=== PATIENT | male | born 1945 | race Caucasian/White ===

== ENCOUNTER → 2017-07-26 14:53 | Outpatient (POV) | payer MEDICARE, MEDICAID, SELFPAY | PROVIDERS: Family Provider Nurse Practitioner; PCP Nurse Practitioner | DX: Z00.00 Encounter for general adult medical examination without abnormal findings (principal) ==

== ENCOUNTER 2017-08-20 16:50 | Emergency (ER) | payer MEDICARE, MEDICAID, SELFPAY ==
[2017-08-20 17:04] VITALS: BP 162/75; RESP 18; O2SAT 95; BMI 39.7
--- NOTE | 2017-08-20 17:18 | XR_ITS ---
XR chest 2V HISTORY: ITS.REASON: fever and cough ORDERING PHYSICIAN: Michael Martinez MD PATIENT AGE: 72 years COMPARISON: 05/13/2017 FINDINGS: There is mild cardiomegaly without failure. There has been a prior median sternotomy with CABG. No lobar consolidation or collapse. Chronic changes are present in the lungs. IMPRESSION: No change with no acute finding. Mild cardiomegaly
--- NOTE | 2017-08-20 17:18 | HMH.EDGENADL ---
ED Disposition Clinical Impression: Acute bronchitis, Diabetes, Hypertension Disposition: Home, Self-Care Condition on Discharge: Fair Additional Instructions: 1- basic hygiene. 2- star tabx. 3- see pcp in am Prescriptions: Azithromycin [Zithromax 250mg tab] 250 mg PO DIRECTED #6 tab - Critical Care Critical Care Time: No Attestation: On , the high probability of a clinically significant, sudden or life threatening deterioration of the following system(s) required my full and direct attention, intervention and personal management. The time I documented below is in addition to time spent performing reported procedures but includes the following listed in this critical care notation. Medical Decision Making - Medical Records Medical records reviewed: Yes: I reviewed the patient's medical records. - Jeanmarie Inquiry Pt receiving controlled substance: No Jeanmarie was queried for this patient: No Vital Signs: 08/20/17 17:04 Temperature Source Oral Respiratory Rate 18 Blood Pressure [Right Arm] 162/75 Blood Pressure Mean [Right Arm] 104 Blood Pressure Source [Right Arm] Automatic Cuff Blood Pressure Position [Right Arm] Sitting 02 Sat by Pulse Oximetry 95 Oxygen Delivery Method Room Air - Lab Data Lab Results 08/20/17 07:14: Group A Strep Rapid Negative 08/20/17 17:00: Influenza Type A Ag Negative, Influenza Type B Ag Negative Orders (Tests/Meds): ORDERS Category Date Time Status Chest XR 2 view (NOT portable) [XR chest 2V] Stat Exams 08/20/17 17:18 Taken Strep Screen Confirmation Stat Micro 08/20/17 07:14 Received General Adult HPI - General Chief complaint: PAIN Stated complaint: body aches, cough Time Seen by Provider: 08/20/17 17:00 Mode of Arrival: Ambulatory Limitations: No Limitations Description of Symptoms (Recalled from ER Triage Doc. by RN): body aches - History of Present Illness HPI narrative: 72 years old white male with hypertension, penicillin allergy and diabetes. He presents with 2 other family members because of fever productive cough yellow sputum and body aches that started yesterday. Denies having hemoptysis shortness of breath chest pain nausea. Onset (ago): day(s) (Started yesterday.) Radiation: non-radiation Severity: mild Quality: aching, dull Consistency: constant Relieving factors: none Exacerbating factors: none Associated symptoms: cough, fever/chills Treatments prior to arrival: none - Related Data Previous Rx's Medication Instructions Recorded Azithromycin [Zithromax 250mg 250 mg PO DIRECTED #6 tab 08/20/17 tab] Allergies Allergy/AdvReac Type Severity Reaction Status Date / Time Penicillins [PENICILLINS] Allergy Intermediate I-RASH Unverified 05/16/17 14:27 [facility] History I have reviewed the patient's past medical history: Yes - Social History Educational Level: Completed High School Smoking Status: Never smoker Alcohol Intake: never - Psychiatric History Expresses thoughts of harming self/others: None Suicide Plan Description: No Plan ROS Obtained: Yes All systems reviewed & no additional complaints Physical Exam - General General appearance: alert, in no apparent distress - Head Head exam: atraumatic, normocephalic, normal inspection - Eye Eye exam: Present: normal appearance, PERRL, EOMI - ENT ENT exam: Present: normal exam, normal oropharynx, mucous membranes moist, TM's normal bilaterally, normal external ear exam - Neck Neck exam: Present: normal inspection, full ROM, trachea midline. Absent: meningismus, lymphadenopathy - Chest Chest inspection: Present: normal inspection, symmetric chest wall rise. Absent: tenderness - Respiratory Respiratory exam: Present: normal lung sounds bilaterally. Absent: respiratory distress - Cardiovascular Cardiovascular exam: Present: regular rate, normal rhythm. Absent: JVD - Abdominal Exam Abdominal exam: Present: soft, nor
[2017-08-20 17:44] LABS: Strep Scrn Group A (Rapid) Negative (Negative)
[2017-08-20 18:18] VITALS: BP 138/87; PULSE 89; RESP 18; TEMP 36.8; O2SAT 98
== END 2017-08-20 18:19 | disposition home or self-care (01) ==
PROVIDERS: Emergency Provider Emergency Medicine; Family Provider Nurse Practitioner; PCP Nurse Practitioner
DX: J20.9 Acute bronchitis, unspecified (principal); E11.9 Type 2 diabetes mellitus without complications; I10 Essential (primary) hypertension; Z88.0 Allergy status to penicillin
CPT/HCPCS: 71046; 87275; 87276; 87430; 99283

== ENCOUNTER → 2017-10-18 13:44 | Outpatient (POV) | payer MEDICARE, MEDICAID, SELFPAY | PROVIDERS: Family Provider Nurse Practitioner; PCP Nurse Practitioner | DX: Z00.00 Encounter for general adult medical examination without abnormal findings (principal) ==

== ENCOUNTER → 2017-11-06 14:46 | Outpatient (CLI) | payer MEDICARE, MEDICAID, SELFPAY ==
[2017-11-06 18:02] LABS: Alanine Aminotransferase 19 U/L (12-78); Albumin Level 3.5 gm/dL (3.4-5.0); Albumin/Globulin Ratio 1.3 (1.1-1.8); Alkaline Phosphatase 138 U/L (46-116); Anion Gap 15.2 mEq/L (5-15); Aspartate Amino Transferase 15 U/L (15-37); Bilirubin,Total 0.7 mg/dL (0.2-1.0); Blood Urea Nitrogen 20 mg/dL (7-18); Calcium 9.1 mg/dL (8.5-10.1); Carbon Dioxide 29 mmol/L (21.0-32.0); Chloride 105 mmol/L (98-107); Creatinine,Serum 1.16 mg/dL (0.70-1.30); Estimated Glomerular Filt Rate 62 ml/min (>60); GFR (African American) 75 ML/MIN (>60); Globulin 2.8 gm/dl (1.3-3.2); Glucose 89 mg/dL (74-106); Potassium 4.2 mmoL/L (3.5-5.1); Sodium 145 mmol/L (136-145); Total Protein,Serum 6.3 gm/dL (6.4-8.2); Troponin I < 0.02 ng/ml (0.00-0.06)
== END ==
PROVIDERS: Visit Provider Nurse Practitioner
DX: R06.02 Shortness of breath (principal); R60.9 Edema, unspecified
CPT/HCPCS: 36415; 80053; 83880; 84484

== ENCOUNTER → 2017-12-06 14:07 | Outpatient (CLI) | payer MEDICARE, MEDICAID, SELFPAY ==
--- NOTE | 2017-12-06 14:10 | MR_ITS ---
MR cervical spine wo con HISTORY: Neck pain. Right upper extremity numbness ITS.REASON: CERVICAL SPINE PAIN ORDERING PHYSICIAN: Amelia Pelayo PATIENT AGE: 72 years Comparison: 03/03/2017 TECHNIQUE: Standard multiplanar multiecho sequences are performed without contrast. 3-D MIP and myelographic images are also rendered and reviewed FINDINGS: The exam is somewhat limited due to patient motion artifact. The craniocervical junction has an unremarkable appearance. C2-C3: Degenerative disc disease with bulging disc. The disc does abut the bilateral cord with minimal contour deformity anteriorly. There is narrowing of the canal at 10 mm C3-C4: There is fusion of the C3-C4 vertebral bodies there is narrowing of the canal at 10 mm. C4-C5: Degenerative disc disease with bulging disc with narrowing of the canal at 9 mm along with bilateral foraminal narrowing. Extensive motion artifact. C5-C6: Degenerative disc disease with bulging disc with narrowing of the canal at 9 mm with bilateral foraminal narrowing. Extensive motion artifact. C6-C7: Partial fusion. Borderline narrowing of the canal with bilateral foraminal narrowing. C7-T1: Unremarkable. IMPRESSION: 1. Very limited study secondary to motion artifact. Fine detail is obscured. 2. Multilevel degenerative disc disease with bulging disc and narrowing of the canal. This is described in detail above. Please see above for detailed description at each level. 3. Prior fusion of C3-C4 and C6-C7. Better bony detail could be obtained with CT if clinically warranted
== END ==
PROVIDERS: Family Provider Nurse Practitioner; PCP Nurse Practitioner; Visit Provider Nurse Practitioner
DX: M54.2 Cervicalgia (principal)
CPT/HCPCS: 72141; 76376

== ENCOUNTER → 2017-12-08 13:38 | Outpatient (CLI) | payer MEDICARE, MEDICAID, SELFPAY ==
--- NOTE | 2017-12-08 13:41 | MR_ITS ---
MR thoracic spine wo con, Ordering Physician: Amelia Pelayo Patient Age: 72 years: Male HISTORY: ITS.REASON: LUMBAR PAIN, SPINAL STENOSIS Back pain. Spinal stenosis bilateral leg weakness and numbness mid and lower back. Symptoms for many years TECHNIQUE: Sagittal T1 & T2 &, STIR along with axial T1 and T2 imaging T-spine. COMPARISON April 2017 chest film in February 2017 T-spine series . FINDINGS . The vertebral bodies intact with no significant wedge compression fracture or lesion. There are some scattered areas of high signal reflecting small hemangioma formation throughout the spine. But no significant clinically. Very subtle slight slight wedge configuration at T4 is associated with some mildly accentuated kyphosis and may merely be congenital versus reflection of some mild trauma. Is also some early disc space narrowing at C4/5 C5-C6. T5/6 demonstrates a tiny disc protrusion central and distal left of midline. Very very slightly indents thecal sac T6/7 also with a very small focal central disc protrusion which barely indents the thecal sac at midline and may just touch the anterior cord at midline. This seen on sagittal image 7. The disc at the lower T-spine unremarkable. Axial images continued to the teeth apex 9 level. On also again note the incomplete segmentation & partial fusion at C 6/7 which was noted on previous cervical spine studies IMPRESSION: No acute nor prominent findings at the T-spine. . No spinal stenosis... No prominent disc protrusion nor disc herniation. Minor observations.: ... Mild accentuated kyphosis at the upper T-spine T2-T6. This Seems to be associated with some mild disc space narrowing most evident anteriorly at T 4/5; & T5/6. ... Very subtle slight wedging at T4. May merely be congenital. Or could reflect remote minor old compression trauma. ... T5-T6 tiny disc protrusion posteriorly at midline to the left.. Only slightly indents the thecal sac. ... T6/7.. Small unimpressive central disc protrusion, slightly indents thecal sac & may just touch anterior margin thoracic cord at midline. But
--- NOTE | 2017-12-08 13:41 | MR_ITS ---
MR lumbar spine wo con,., MR 3-d myelogram/MRCP Ordering Physician: Amelia Pelayo Patient Age: 72 years: Male HISTORY: ITS.REASON: LUMBAR PAIN, SPINAL STENOSIS . Spinal stenosis bilateral leg weakness and numbness. Mid and low back pain symptoms for years, worse recently. TECHNIQUE: Sagittal STIR, T1, T2, axial T1 and T2. On 1.5T Siemens wide bore MRI. 3-D MR myelogram image set obtained & performed on MRI workstation. Additional sagittal thin section T2 weighted dataset obtained from this latter acquisition as well (---76 CPT) COMPARISON :MRI lumbar 08/19/2013. CTA abdomen from March 2017 also utilized. Also plain films lumbar FINDINGS L5. Bilateral pars defect with nearly 7 mm grade 1 anterior spondylolisthesis of L5 on S1 . This is been seen on multiple previous studies including CT exam CTA from 2017.. Exuberant posterior element hypertrophy, related to the both the facet arthropathy and pars defect evident.. Irregular appearance of the facets and posterior elements bilaterally at this level as well as L4/5 L5/S1 disc intact. Exuberant Facet and posterior element hypertrophy. Along with decreased height of the foramen to the listhesis yields mild to moderate narrowing of the foramen L4/5 disc intact only scant central bulge. Exuberant facet hypertrophy is most evident at this level with prominent bony proliferation posterior to the facets. Possibly from old fusion procedure?. The prominent facets and posterior elements to indents the posterior thecal sac and yield borderline to mild spinal stenosis at this level. No significant change since 2013. L3/4. Disc intact. Moderate facet hypertrophy and arthropathy. The right greater than left. Fluid at facet joints. Narrowing of the neural foramen bilaterally mainly due to these features. L2/3 disc intact mild facet arthropathy hypertrophy L1/2. Disc intact facet hypertrophy. T12/L1 disc intact. T11/12 disc intact. Conus ends appropriately at L1 3-D MR myelogram image set shows no significant new findings. There is slight posterior indentation the thecal sac at L4/5 related to the posterior element hypertrophy, and to lesser L3/4. Surprisingly there is a generous caliber of the spinal canal L5/S1 despite the listhesis patchy marrow pattern at sacrum and posterior iliac bones noted. Most likely reflects, yellow-tored marrow changes reflecting is history of smoking or possibly anemia. Correlation required . IMPRESSION: ...... No prominent change since 2014 MRI.. Only Slight progressive facet arthropathy and hypertrophy throughout. Bilateral spondylolysis at L5, generous grade 1 spondylolisthesis of L5 on S1. L5/S1. Exuberant posterior element hypertrophy. Related to both large defect and the facet hypertrophy. Bilateral Foraminal narrowing due combination of these features L4/5: exuberant posterior element & facet hypertrophy. Minor central disc bulge. Features mainly Indents posterior thecal sac with slightly narrows the spinal canal most evident posteriorly. Borderline to perhaps mild central canal stenosis. No significant progression or change 2014 L3/4. Moderate facet hypertrophy and arthropathy. Right greater than left. L2/3. Mild facet hypertrophy, arthropathy..
== END ==
PROVIDERS: Family Provider Nurse Practitioner; PCP Nurse Practitioner; Visit Provider Nurse Practitioner
DX: M54.5 Low back pain (principal); M48.07 Spinal stenosis, lumbosacral region
CPT/HCPCS: 72146; 72148; 76376

== ENCOUNTER → 2018-02-20 09:08 | Outpatient (POV) | payer MEDICARE, MEDICAID, SELFPAY | PROVIDERS: Family Provider Nurse Practitioner; PCP Nurse Practitioner; Visit Provider Internal Medicine | DX: Z00.00 Encounter for general adult medical examination without abnormal findings (principal) ==

== ENCOUNTER → 2018-10-17 09:32 | Outpatient (CLI) | payer MEDICARE, MEDICAID, SELFPAY ==
--- NOTE | 2018-10-17 09:43 | XR_ITS ---
XR foot LT min 3V HISTORY: ITS.REASON: BILAT HEEL PAIN ORDERING PHYSICIAN: Mary Ann Chavez APRN PATIENT AGE: 73 years COMPARISON: None FINDINGS: There are mild osteoarthritic changes at the first metatarsophalangeal joint. There is mild diffuse osteopenia. No fracture or dislocation. No lytic or blastic change. There is a small calcaneal spur and there is generalized vascular calcification. 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
--- NOTE | 2018-10-17 09:43 | XR_ITS ---
XR foot RT min 3V HISTORY: ITS.REASON: BILAT HEEL PAIN ORDERING PHYSICIAN: Mary Ann Chavez APRN PATIENT AGE: 73 years COMPARISON: None FINDINGS: No fracture or dislocation. No lytic or blastic change. There is normal mineralization.. The joint spaces are well-preserved. No significant degenerative/arthritic changes. No erosive changes evident. There is mild generalized vascular calcification. Minimal bony hypertrophic changes present in the anterior distal tibia. There are surgical clips at the medial aspect of the ankle. IMPRESSION: No acute finding
== END ==
PROVIDERS: PCP Family Medicine; Visit Provider Nurse Practitioner Family
DX: M79.672 Pain in left foot (principal); M79.671 Pain in right foot
CPT/HCPCS: 73630

== ENCOUNTER → 2018-11-09 10:03 | Outpatient (CLI) | payer MEDICARE, MEDICAID, SELFPAY ==
--- NOTE | 2018-11-09 10:15 | XR_ITS ---
XR DEXA axial skeleton HISTORY: ITS.REASON: OSTEOPENIA ORDERING PHYSICIAN: Amelia Pelayo APRN PATIENT AGE: 73 years COMPARISON: None FINDINGS: The BMD measured at the Right femoral neck is 0.625 g/cm squared with a T score of -3.4. This is considered Markedly Low according to the World Health Organization criteria. Fracture risk is High. Treatment is advised. The L1 L4 density has a T score of -2.3 IMPRESSION: Osteoporosis. High fracture risk. Treatment is advised. Suggest follow-up exam October 2019
== END ==
PROVIDERS: PCP Family Medicine; Visit Provider Nurse Practitioner
DX: M85.89 Other specified disorders of bone density and structure, multiple sites (principal)
CPT/HCPCS: 77080

== ENCOUNTER 2019-03-14 10:57 | Outpatient (RCR) | payer MEDICARE, SELFPAY ==
--- NOTE | 2019-03-14 11:32 | HMH.PTOPEV ---
PT Outpatient Evaluation Rehab PT Outpatient Evaluation Start: 03/14/19 11:23 Freq: Status: Active Protocol: Document 03/14/19 11:24 ZENON (Rec: 03/14/19 11:32 ZENON [id number]) Electronically Signed By Ted Martinez, PT 03/14/19 11:24 Outpatient Therapy Subjective History Subjective History Pt reports h/o chronic neck pain for ~30 yrs, however, reports exacerbation over the last ~3 months. Pt reports mostly midline neck and CT junction area pain, with intermittent referred pain into B UT mm. PMH: CERVICAL FUSION C3-4, C6-7 Chief Complaint Pain,Stiff,Clicks Symptom Type Ache,Throb,Sharp,Dull Symptoms Relieved By Rest/Positioning Symptoms Aggravated By Physical Activity,Lifting Prior Functional Limitations Housework Current Functional Limitations Reaching,Lifting,Housework, Driving Symptom Description Constant but Variable Level of pain today (0-10) 8 Pain scale - at its best (0-10) 8 Pain scale - at its worst (0-10) 8 Cervical Eval Palpation Cervical Muscles R Cervical Paraspinal,L Cervical Paraspinal,R CT Junction,L CT Junction,R Upper Trapezius,L Upper Trapezius Cervical/Thoracic Palpation Findings Tenderness,Muscle Guarding Posture Head/C-Spine Posture Sitting Position Flexed Head/C-Spine Posture Standing Position Flexed Flexibility Deficits Upper Trapezius Muscle Length (R) Moderate Tightness,(L) Moderate Tightness Scalene Group Muscle Length (R) Moderate Tightness,(L) Moderate Tightness Pectoralis Major Muscle Length (R) Severe Tightness,(L) Severe Tightness Pectoralis Minor Muscle Length (R) Severe Tightness,(L) Severe Tightness Passive Joint Mobility Cervical PIVM Dec: R OA L OA R AA L AA R C2/3 L C2/3 R C3/4 L C3/4 R C4/5 L C4/5 R C5/6 L C5/6 R C6/7 L C6/7 R C7/T1
== END 2019-03-14 10:59 | disposition home or self-care (01) ==
LOC: PT 10:57
PROVIDERS: PCP Family Medicine; Visit Provider Family Medicine
DX: M54.2 Cervicalgia (principal)
CPT/HCPCS: 97163

== ENCOUNTER → 2020-11-12 09:18 | Outpatient (POV) | payer MEDICARE, MEDICAID, SELFPAY ==
[2020-11-12 09:38] VITALS: BP 126/55; PULSE 76; RESP 20; O2SAT 96; BMI 32.1
--- NOTE | 2020-11-12 12:45 | HMH.PMCON ---
Assessment and Plan (1) Neck pain Status: Chronic Category: Medical Code(s): M54.2 - Cervicalgia (2) Peripheral neuropathy Status: Chronic Category: Medical Code(s): G62.9 - Polyneuropathy, unspecified (3) Low back pain Status: Chronic Category: Medical Code(s): M54.5 - Low back pain - Assessment and plan all Dx Assessment and Plan for all problems:: Patient is not interested in injections at this time. He has tried and failed injective therapy in the past. He is also tried anti-inflammatories in the past and home stretching. He has undergone physical therapy for greater than 6 weeks in the past with no significant relief. We discussed possible intrathecal therapy as an option, however, he is unsure he wants to proceed with this. For now he would like to try Lyrica 75 mg 1 tablet p.o. twice daily. His pain is worse to his bilateral feet. He has tried gabapentin and says the medication made him too sleepy. We will give him Lyrica 75 mg 1 tablet p.o. twice daily and see if this is effective for his pain. We will follow-up with him in 2 weeks for reevaluation of his symptoms. Patient has been instructed to contact the clinic with any concerns before the next appointment. Dr. Srinivasan has reviewed this note and agrees with this plan of care. This note was dictated using voice recognition software and make contain errors or omissions. HPI - Data of Consult Patient: new to practice Consult date: 11/12/20 Requesting Physician: Tomasa Gomez APRN Primary Care Provider: Clayton Kaur MD - Consult Narrative Reason for consult: Low back pain, neck pain, bilateral lower extremity pain, foot pain History of present illness: Mr. Alvarado is a 75 year old male referred to our clinic today for consultation for chronic low back and foot pain. Patient has been seen by Dr. Hill and [facility] for chronic bilateral lower extremity pain due to atherosclerosis of both lower extremities with intermittent claudication. Dr. Hill did attempt place iliac stents, however, was unsuccessful. As result the patient is continuing to have significant pain. Patient is diabetic and there was concern for some neuropathic pain as well. Patient does have low back pain as well as neck pain. He has had cervical fusion in 2001. He also reports to have had a left hip replacement in early 1999's as well. He says his worst pain today is in his bilateral feet. He says that he has had injective therapy in the lumbar spine which did not give him any relief. Last injective therapy was approximately 3 years ago in [facility]. The pain in his low back is going across his back and radiating into the lower extremities. He says his feet feel as though he has knives sticking in them. He is having numbness and tingling into his fourth and fifth fingers bilaterally. He says that his neck pain is consistent with weakness and heaviness as well as weakness and also into his bilateral hands. Has tried gabapentin with no significant relief. He said the medication made him too drowsy. Patient is not interested in injective therapy. He is not interested in interventional therapies. We discussed trying Lyrica at this time to see if it helps with his symptoms that he is having in his bilateral feet. He would like to try this. CC: Tomasa Gomez APRN [facility] History Medical History: Reports:: Atherosclerotic Heart Disease, Coronary Artery Disease, Diabetes Mellitus Type 2, Hyperlipidemia, Hypertension, Peripheral Artery Disease Denies:: Cancer, Diabetes Mellitus Type 1, Internal Pacemaker, Lung Disease, MRSA, Seizures *Have you ever received a pneumonia vaccine?: Yes *Have you received a flu vaccine this season?: Yes Other Medical History: Reports: Anemia, Arthritis, Other Other Surgeries: Yes: Cardiac Catheterization, Coronary Stent (x12). No: Pacemaker Amputation: No Fractures: Yes (right ankle fx with surgical repair) - *Social His
== END ==
PROVIDERS: PCP Family Medicine; Visit Provider Clinical Nurse Specialist Family Health
DX: M54.2 Cervicalgia (principal); G62.9 Polyneuropathy, unspecified; M54.5 Low back pain
CPT/HCPCS: 99202; G0463

== ENCOUNTER → 2020-11-26 10:33 | Outpatient (POV) | payer MEDICARE, MEDICAID, SELFPAY ==
[2020-11-26 10:44] VITALS: BP 141/59; PULSE 78; RESP 18; O2SAT 94; BMI 32.6
--- NOTE | 2020-11-26 12:47 | HMH.PAINSOAP ---
[facility] [place] Pain Management SOAP Note Subjective:: Patient is a 75-year-old white male who presents today for follow-up. The patient is being seen in our clinic for degenerative disc disease cervical spine with cervical radiculopathy symptoms and degenerative disc disease lumbar spine with lumbar radiculopathy symptoms. Patient does also have peripheral neuropathy. At the patient's last visit, he was started on Lyrica 75 mg 1 tablet p.o. twice daily. He is here today for follow-up after the medication initiation. Patient says that he is getting some relief of his burning sensation to his bilateral feet, however, the medication is making him very drowsy. He says that it is tolerable through the night, however, in the daytime he finds himself falling asleep often. We discussed changing this dosing to 50 mg 1 tablet p.o. twice daily, however, the patient would like to continue at 75 mg 1 tablet p.o. daily rather than in the morning time as well. Patient says, however, it has not helped with his pain. He continues to have significant pain in his neck, bilateral shoulders, and bilateral lower extremities. He does rate his pain an 8 out of 10 today. Patient has tried and failed conservative therapies of physical therapy for greater than 6 weeks along with continued home stretching. He is also tried injective therapy on multiple occasions with multiple different clinics. He has never gotten any significant relief. He uses ice and heat therapies with no relief along with anti-inflammatories with no significant relief. Patient would like to discuss possible long-term options for pain relief. He has taken Percocet in the past which is giving him some relief but has not relieved his pain entirely. Patient I did discuss realistic expectations, and the likelihood that he would not experience 0 out of 10 pain. We did discuss possible intrathecal therapy which he would like to pursue possible trial. I did discuss with the patient he would need to undergo psychological evaluation prior to undergoing a trial. He is in agreement. He is not considered a neurosurgical candidate. Review of Systems General: No recent weight changes, no fever, no sleep disturbances Respiratory: No cough, no shortness of air, no recurring pulmonary infections Cardiovascular/peripheral vascular: No chest pain, no palpitations, no edema, no shortness of breath Gastrointestinal: No new onset incontinence, normal bowel movements reported Genitourinary: No new onset incontinence Musculoskeletal: Neck pain with radiation into bilateral shoulders, low back or with radiation into bilateral lower extremities, bilateral foot pain with numbness and tingling and burning sensation Psychiatric: Normal mood/affect Neurological: Burning sensation bilateral feet, weakness bilateral feet, balance issues due to foot pain and bilateral leg pain Objective:: Physical exam General: Alert and oriented x3, no acute distress, pleasant and cooperative, [on room air] Lungs: Respirations even and unlabored, symmetrical chest expansion Eyes: PERRL Musculoskeletal: Flexion and extension of cervical and lumbar spine somewhat guarded secondary to pain, deep tendon reflexes normal, strength in upper and lower extremities [5/5], [abnormal gait noted] Neurological: Speech clear, 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 He does have pain in his neck, shoulders, low back and bilateral legs. I have explained to the patient and his that the intrathecal therapy will typically only relieve pain radicular from the spine. They do understand this. I have also discussed realistic expectatio
--- NOTE | 2020-12-28 11:20 | PC.NURSE ---
attempt to call patient to schedule for follow up appointment to talk about psych eval, no answer and no voicemail and no other contact number.
--- NOTE | 2020-12-30 13:22 | PC.NURSE ---
Tried calling patient again to set up follow up psych eval appointment with no answer and no voicemail.
== END ==
PROVIDERS: PCP Family Medicine; Visit Provider Clinical Nurse Specialist Family Health
DX: M51.16 Intervertebral disc disorders with radiculopathy, lumbar region (principal); M50.10 Cervical disc disorder with radiculopathy, unspecified cervical region; G62.9 Polyneuropathy, unspecified
CPT/HCPCS: 99212; G0463

== ENCOUNTER → 2021-01-04 10:54 | Outpatient (POV) | payer MEDICARE, MEDICAID, SELFPAY ==
--- NOTE | 2021-01-04 11:20 | HMH.PAINSOAP ---
[facility] Pain Management SOAP Note Subjective:: Patient is a 75-year-old white male who presents today for follow-up after her psychological evaluation. 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 Patient does also have a history of peripheral neuropathy. Patient was started on Lyrica at one of his previous visits, however, has not gotten any significant relief with the medication. He rates his pain a 9 out of 10 today. Patient's pain is primarily in his neck, palpable lateral shoulders, and bilateral lower extremities. He also has significant pain in his low back. He says he is unable to stand, walk, or sit for prolonged periods due to significant pain. He has had injections in the past with no significant relief. He is also tried physical therapy for greater than 6 weeks and continues with home stretching. Patient is on Eliquis and is unable to take anti-inflammatories. His Eliquis is prescribed by Dr. Henry in [facility] with [facility]. He has taken Percocet in the past which is giving him some relief but has not relieved his pain entirely. Patient I had a long conversation at his last visit with realistic expectations of the pump. I have explained to the patient that the intrathecal therapy will not likely give him relief of his upper and lower extremity pain if the pain is not stemming from his spine. Patient and I also discussed that he will not likely get 100% pain relief. He does understand this and does wish to continue with the trial. Per the psychological evaluation he is an appropriate candidate pending the patient discontinue his diazepam 10 mg 1 tablet p.o. 4 times daily. It was also advised that the patient start an antidepressant per his primary care provider. Patient does have an appointment upcoming with his primary care provider. He also takes temazepam 30 mg 1 tablet p.o. at bedtime as needed insomnia. We did discuss he will likely need to wean on this medication as well due to risk of oversedation with intrathecal therapy. Patient is in agreement to stop these medications and start antidepressant in the event that the intrathecal pump trial does give him relief. He understands he will need to have weaned on these medications prior to the trial. Review of Systems General: No recent weight changes, no fever, no sleep disturbances Respiratory: No cough, no shortness of air, no recurring pulmonary infections Cardiovascular/peripheral vascular: No chest pain, no palpitations, no edema, no shortness of breath Gastrointestinal: No new onset incontinence, normal bowel movements reported Genitourinary: No new onset incontinence Musculoskeletal: Neck pain, shoulder pain, bilateral upper and lower extremity pain, low back pain Psychiatric: [Normal mood/affect] Neurological: [Denies weakness in extremities], [denies balance issues] Objective:: Physical exam General: Alert and oriented x3, no acute distress, pleasant and cooperative, [on room air] Lungs: Respirations even and unlabored, symmetrical chest expansion Eyes: PERRL Musculoskeletal: Flexion and extension of cervical and lumbar [spine] somewhat guarded secondary to pain, strength in upper and lower extremities [5/5], [antalgic gait noted] Neurological: Speech clear, [capacity planning manager equal], no gross sensory deficit Assessment:: Degenerative disc disease cervical and lumbar spine with cervical and lumbar radiculopathy symptoms Plan:: The patient has tried and failed conservative therapies with no significant relief. He is unable to take anti-inflammatories due to anticoagulation therapy?Eliquis. His Eliquis is prescribed by Dr. Henry at [facility] in [facility]. We will schedule the patient for an intrathecal pain pump trial. Per the patient psychological evaluation, he will need to have stopped his diazepam. I have recommended to the selena
== END ==
PROVIDERS: Visit Provider Clinical Nurse Specialist Family Health
DX: M50.10 Cervical disc disorder with radiculopathy, unspecified cervical region (principal)
CPT/HCPCS: 99212; G0463

== ENCOUNTER 2021-02-25 07:43 | Outpatient (RCR) | payer MEDICARE, MEDICAID, SELFPAY | END 2021-02-25 08:47 | disposition home or self-care (01) | LOC: PT 07:43 | PROVIDERS: Visit Provider Family Medicine | DX: Z76.89 Persons encountering health services in other specified circumstances (principal); R26.89 Other abnormalities of gait and mobility | CPT/HCPCS: 97542 ==

== ENCOUNTER 2021-03-13 14:47 | Inpatient (IN) | payer MEDICARE, MEDICAID, SELFPAY ==
[2021-03-13] VITALS (7 sets, daily range): BP systolic 112–138; BP diastolic 55–92; PULSE 73–108; RESP 16–26; TEMP 36.7–36.8; O2SAT 88–100; BMI 33.7; BMI 34.2
--- NOTE | 2021-03-13 14:54 | HMH.EDGENADL ---
ED Disposition Clinical Impression: Gangrene of right foot Disposition: Admitted As Inpatient Condition on Discharge: Serious - Critical Care Critical Care Time: No Attestation: On , the high probability of a clinically significant, sudden or life threatening deterioration of the following system(s) required my full and direct attention, intervention and personal management. The time I documented below is in addition to time spent performing reported procedures but includes the following listed in this critical care notation. Medical Decision Making - Jeanmarie Inquiry Pt receiving controlled substance: Yes Jeanmarie was queried for this patient: Yes Risks and benefits of using a controlled substance: were not discussed with pt by me Vital Signs: 03/13/21 14:49 03/13/21 15:31 03/13/21 16:00 Temperature 98.1 F Temperature Source Oral Pulse Rate 100 H 73 Pulse Rate [Left Radial] 108 H Respiratory Rate 20 16 Blood Pressure 112/92 H 124/55 L Blood Pressure [Right Arm] 138/89 Blood Pressure Mean 95 78 Blood Pressure Mean [Right Arm] 105 Blood Pressure Source [Right Arm] Automatic Cuff Blood Pressure Position [Right Arm] Sitting 02 Sat by Pulse Oximetry 100 94 L 88 L Oxygen Delivery Method Oxygen Flow Rate (LPM) 03/13/21 16:31 03/13/21 16:59 Temperature 98.1 F Temperature Source Pulse Rate 97 H 97 H Pulse Rate [Left Radial] Respiratory Rate 20 20 Blood Pressure 133/60 133/60 Blood Pressure [Right Arm] Blood Pressure Mean 87 Blood Pressure Mean [Right Arm] Blood Pressure Source [Right Arm] Blood Pressure Position [Right Arm] 02 Sat by Pulse Oximetry 96 Oxygen Delivery Method Nasal Cannula Oxygen Flow Rate (LPM) 2 - Lab Data Lab Results 03/13/21 14:45: WBC 8.1, RBC 3.09 L, Hgb 10.4 L, Hct 30.9 L, MCV 100.0 H, MCH 33.6 H, MCHC 33.6, RDW 17.7 H, Plt Count 71 L, MPV 11.1 H, Neut % (Auto) 84.4 H, Lymph % (Auto) 6.7 L, [place] % (Auto) 3.7, Eos % (Auto) 4.9, Baso % (Auto) 0.3, Neut # (Auto) 6.8, Lymph # (Auto) 0.5 L, [place] # (Auto) 0.3, Eos # (Auto) 0.4, Baso # (Auto) 0.0 03/13/21 14:45: Sodium 137, Potassium 5.3 H, Chloride 101, Carbon Dioxide 30, Anion Gap 11.3, BUN 36 H, Creatinine 1.30 H, Estimated Creat Clear 76, Estimated GFR 54 L, Est GFR ( Amer) 65, Glucose 153 H, Calcium 9.0, Total Bilirubin 1.0, AST 46, ALT 20, Alkaline Phosphatase 85, Total Protein 7.5, Albumin 4.3, Globulin 3.2, Albumin/Globulin Ratio 1.3 03/13/21 14:45: PT 11.8, INR 1.05 03/13/21 14:45: ESR 29 H 03/13/21 14:45: C-Reactive Protein 12.3 H, Procalcitonin 0.137 03/13/21 15:15: Lactate 2.9 H 03/13/21 15:15: Urine Color Straw, Urine Appearance Clear, Urine pH 5.5, Ur Specific [place] 1.010, Urine Protein Negative, Urine Glucose (UA) Negative, Urine Ketones Negative, Urine Blood Negative, Urine Nitrate Negative, Urine Bilirubin Negative, Urine Urobilinogen 0.2, Ur Leukocyte Esterase Negative, Ur Squamous Epith Cells Occasional, Urine Bacteria Trace 03/13/21 15:19: SARS-CoV-2 (PCR) Not detected, Influenza A Untype (PCR) Not detected, Influenza Type B (PCR) Not detected Result diagrams: 03/13/21 14:45 03/13/21 14:45 Orders (Tests/Meds): ED MEDICATIONS Generic Name Dose Route Start Last Admin Trade Name Martinez PRN Reason Stop Dose Admin Acetaminophen 650 mg 03/13/21 17:30 Acetaminophen 325mg Tab PO 04/12/21 17:29 Q4HP PRN Fever or Mild Pain Amlodipine Besylate 5 mg 03/14/21 09:00 Amlodipine 5mg Tablet PO 04/13/21 08:59 DAILY [facility] Atorvastatin Calcium 40 mg 03/14/21 09:00 Atorvastatin 40mg Tablet PO 04/13/21 08:59 DAILY [facility] Carvedilol 12.5 mg 03/13/21 21:00 Carvedilol 25mg Tablet PO 04/12/21 20:59 BID [facility] Furosemide 80 mg 03/13/21 21:00 Furosemide 40 Mg Tablet PO 04/12/21 20:59 BID [facility] Cefepime HCl 2 gm/ Sodium 100 mls @ 200 mls/hr 03/14/21 04:00 Chloride IV 03/27/21 15:59 Q12H [facility] Metronidazole 500 mg in 100 mls @ 10
[2021-03-13 15:03] LABS: Basophils % 0.3 % (0.1-2.0); Eosinophils # 0.4 K/mm3 (0.0-0.4); Eosinophils % 4.9 % (0.1-12.0); Hematocrit 30.9 % (42.0-52.0); Hemoglobin 10.4 g/dL (14.1-18.0); Lymphocytes # 0.5 K/mm3 (0.7-4.5); Lymphocytes % 6.7 % (10-50); Mean Corpuscular HGB Conc 33.6 g/dL (31.8-35.4); Mean Corpuscular Hemoglobin 33.6 pg (27.0-31.2); Mean Platelet Volume 11.1 fl (7.4-10.4); Monocytes # 0.3 K/mm3 (0.1-1.0); Monocytes % 3.7 % (1.7-9.3); Neutrophils # 6.8 K/mm3 (1.8-7.8); Neutrophils % 84.4 % (37.0-80.0); Platelet Count 71 K/mm3 (142-424); Red Blood Count 3.09 M/mm3 (4.60-6.20); Red Cell Distribution Width 17.7 % (11.5-17.5); White Blood Count 8.1 K/mm3 (4.8-10.8)
--- NOTE | 2021-03-13 15:09 | XR_ITS ---
PROCEDURE INFORMATION: Exam: XR Right Foot Exam date and time: 03/13/2021 3:09 PM Age: 76 years old Clinical indication: Swelling, leg or foot; Patient HX: Pain and discoloration of right foot TECHNIQUE: Imaging protocol: XR Right foot. Views: 3 or more views. COMPARISON: No relevant prior studies available. FINDINGS: Bones/joints: There is no evidence of acute fracture. There is no evidence of joint malalignment or dislocation. Soft tissues: No focal soft tissue swelling. IMPRESSION: 1. No evidence of acute fracture. 2. No evidence of acute dislocation.
[2021-03-13 15:10] LABS: Alanine Aminotransferase 20 U/L (12-78); Albumin Level 4.3 g/dl (3.5-5.0); Albumin/Globulin Ratio 1.3 (1.1-1.8); Alkaline Phosphatase 85 U/L (38-126); Anion Gap 11.3 mEq/L (5-15); Aspartate Amino Transferase 46 U/L (17-59); Blood Urea Nitrogen 36 mg/dl (9-20); Carbon Dioxide 30 mmol/L (22.0-30.0); Chloride 101 mmol/L (98-107); Creatinine Clearance Estimated 76 mL/min (50-200); Estimated Glomerular Filt Rate 54 ml/min (>60); GFR (African American) 65 ML/MIN (>60); Globulin 3.2 g/dL (1.3-3.2); Glucose 153 mg/dl (74-100); INR 1.05 (0.9-1.1); Potassium 5.3 mmoL/L (3.5-5.1); Prothrombin Time 11.8 seconds (10.1-12.5); Sodium 137 mmol/L (136-145); Total Protein,Serum 7.5 g/dl (6.3-8.2)
--- NOTE | 2021-03-13 15:10 | XR_ITS ---
PROCEDURE INFORMATION: Exam: XR Chest Exam date and time: 03/13/2021 3:10 PM Age: 76 years old Clinical indication: Other: Chills TECHNIQUE: Imaging protocol: XR of the chest. Views: 1 view. COMPARISON: CR CXR2V XR chest 2V 08/20/2017 5:21 PM FINDINGS: Tubes, catheters and devices: There are sternal wires consistent with previous sternotomy incision. Lungs: Atelectatic changes noted within both lung bases. Pleural spaces: There is no evidence of pneumothorax. There are no pleural effusions present. Heart/Mediastinum: The heart demonstrates mild diffuse enlargement. Vasculature: The vasculature demonstrates diffuse mild atherosclerotic calcification. Bones/joints: Unremarkable. IMPRESSION: 1. The heart demonstrates mild diffuse enlargement. 2. Atelectatic changes noted within both lung bases.
[2021-03-13 15:26] LABS: Microscopic, Urine URINE MICROSCOPIC (MICROSCOPIC)
[2021-03-13 15:26] LABS: Coronavirus 19, PCR Not Detected (NotDetected); Influenza A, PCR Not Detected (NotDetected); Influenza B, PCR Not Detected (NotDetected)
[2021-03-13 15:29] LABS: C-Reactive Protein 12.3 mg/L (0-4)
[2021-03-13 15:37] LABS: Lactic Acid 2.9 mmol/L (0.7-2.1)
[2021-03-13 15:38] LABS: Erythrocyte Sedimentation Rate 29 mm/hr (0-20)
[2021-03-13 15:40] LABS: Appearance,Urine CLEAR (Clear); Bilirubin,Urine Negative (Negative); Blood, Urine Negative (Negative); Color,Urine STRAW (Yellow); Glucose,Urine (UA) Negative (Negative); Ketones,Urine Negative (Negative); Leukocyte Esterase,Urine Negative (Negative); Nitrate,Urine Negative (Negative); PH,Urine 5.5 (5.0-8.5); Protein,Urine Negative (Negative); Urobilinogen,Urine 0.2 EU/dl (0.2)
--- NOTE | 2021-03-13 15:41 | ECG_ITS ---
APPROVED REPORT Exam: Resting ECG HR:96 bpm ECG Measurements Heart Rate 96 AXES SC 164 P 52 QRSd 92 QRS 32 QT 382 T 127 QTc 482 Conclusion Normal sinus rhythm Nonspecific ST and T wave abnormality Prolonged QT Abnormal ECG Electronically signed by : Lance Alex MD 03/15/2021 18:00:04
[2021-03-13 15:42] LABS: Procalcitonin 0.137 ng/mL (0.0-2.0)
[2021-03-13 15:47] LABS: Bacteria,Urine Trace /lpf; Squamous Epithelial Cell,Urine Occasional #/hpf (0-5)
--- NOTE | 2021-03-13 15:50 | PC.NURSE ---
Dr Tariq spoke with Dr Hoffman
--- NOTE | 2021-03-13 16:49 | PC.NURSE ---
report given to Sabra NOVAK
--- NOTE | 2021-03-13 16:59 | PC.NURSE ---
pt arrived to the floor at this time
[2021-03-13 18:20] LABS: POC Glucose,Bedside 203 (70-110)
[2021-03-13 19:03] LABS: Reflex Lactic Add Lactic Reflex
[2021-03-13 19:43] LABS: Lactic Acid Follow Up (RFLX 1) 3.4 mmol/L (0.7-2.1)
[2021-03-13 20:12] LABS: POC Glucose,Bedside 147 (70-110)
[2021-03-13 21:31] LABS: Reflex Lactic (2 hrs) Add Lactic Reflex
[2021-03-13 22:02] LABS: Lactic Acid Follow up (RFLX 2) 2.3 mmol/L (0.7-2.1)
[2021-03-14] VITALS (29 sets, daily range): BP systolic 89–113; BP diastolic 44–61; PULSE 82–97; RESP 15–22; TEMP 36.3–37.4; O2SAT 90–95; BMI 34.5
--- NOTE | 2021-03-14 05:07 | PC.NURSE ---
pt's VSS, A&Ox4, c/o pain once this shift controlled with medication per jul, right foot open to air slight serosanguineous drainage, pt resting comfortably in bed, will continue to monitor
[2021-03-14 06:03] LABS: POC Glucose,Bedside 195 (70-110)
--- NOTE | 2021-03-14 08:55 | HMH.HP ---
*Admission Date: 03/13/21 *Chief complaint: Right foot pain *History of present illness: 76-year-old male presented to the emergency department with 2 to 3 days of right foot pain with discoloration in the right foot. Patient had injured his second right toe while trying to trim his toenail. He believes he cut the nail too short and ended up causing a small cut on the tip of the toe. Over the following 48 to 72 hours discoloration had developed in the second toe. Discoloration was purple and was beginning to spread to the distal foot. He had increasing pain in the foot along with inability to ambulate. Patient has a history of peripheral arterial disease and tells me he was actually scheduled for vascular surgery consultation this coming Monday to look at potential bypass surgery in the lower extremity. In addition to his peripheral arterial disease patient has diabetic peripheral neuropathy. He admits to having chills but no documented fevers as of yet. Patient endorses general malaise as well [facility] History I have reviewed the patient's past medical history: Yes Medical History: Reports:: Atherosclerotic Heart Disease, Atrial Fibrillation, Congestive Heart Failure, Coronary Artery Disease, Diabetes Mellitus Type 2, Hyperlipidemia, Hypertension, MRSA, Myocardial Infarction, Peripheral Artery Disease Denies:: Cancer, Diabetes Mellitus Type 1, Internal Pacemaker, Lung Disease, Seizures *Have you ever received a pneumonia vaccine?: Yes *Have you received a flu vaccine this season?: Yes Other Medical History: Reports: Anemia, Arthritis, Cataracts, Other Other Surgeries: Yes: Cardiac Catheterization, Coronary Stent (x12). No: Pacemaker Amputation: No Fractures: Yes (right ankle fx with surgical repair) - *Social History Last grade of school completed: 7th or 8th Smoking Status: Never smoker Alcohol Intake: never *Occupational Status:: retired Housing: house Household Members: spouse *Travel in the last 8 weeks: None Family Hx:: Other Review of Systems - Review of Systems Review of systems:: pertinent systems reviewed and negative unless documented below Meds Home Medications Medication Instructions Recorded Confirmed Type Amlodipine Besylate [Norvasc 5mg 5 mg PO DAILY 09/29/17 03/13/21 History tablet] Atorvastatin Calcium [Lipitor 40mg 40 mg PO DAILY 09/29/17 03/13/21 History Tablet] Furosemide [Lasix 40mg tab] 80 mg PO BID 09/29/17 03/13/21 History Potassium Chloride [Klor-Con 20 20 meq PO TID 09/29/17 03/13/21 History mEq Packet] carvediloL [Coreg 25mg Tablet] 12.5 mg PO BID 09/29/17 03/13/21 History Ferrous Gluconate [Ferrous 324 mg PO DAILY 10/13/17 03/13/21 History Gluconate 324mg Tab] Alendronate Sodium [Alendronate 35 mg PO WEEKLY 11/12/20 03/13/21 History 35mg Tablet] Apixaban [Eliquis 5mg tab] 5 mg PO BID 11/12/20 03/13/21 History Cholecalciferol (Vitamin D3) 50,000 unit PO WEEKLY 11/12/20 03/13/21 History [Vitamin D3 50,000 unit Cap] Insulin Glargine,Hum.rec.anlog 20 units SQ DAILY 11/12/20 03/13/21 History [Lantus Solostar 100 Units/mL 3mL flexpen] Losartan Potassium 100 mg PO DAILY 11/12/20 03/13/21 History Metformin HCl [Metformin HCl ER] 2,000 mg PO HS 11/12/20 03/13/21 History Multivitamin 1 each PO DAILY 11/12/20 03/13/21 History Sotalol HCl [Sotalol] 80 mg PO DAILY 11/12/20 03/13/21 History Temazepam [Restoril 30mg Capsule] 30 mg PO HS 11/12/20 03/13/21 History Allergies Allergy/AdvReac Type Severity Reaction Status Date / Time Penicillins [PENICILLINS] Allergy Intermediate I-RASH Verified 11/12/20 09:48 Exam Vital signs and Labs for Last 24 Hours: Temp Pulse Resp BP Pulse Ox 98.2 F 92 H 18 100/55 L 94 L 03/14/21 04:57 03/14/21 04:57 03/14/21 04:57 03/14/21 04:57 03/14/21 04:57 Laboratory Results - last 24 hr 03/13/21 14:45: WBC 8.1, RBC 3.09 L, Hgb 10.4 L, Hct 30.9 L, MCV 100.0 H, MCH 33.6 H, MCHC 33.6, RDW 17.7 H, Plt Count 71 L, MPV
[2021-03-14 09:39] LABS: Basophils % 0.2 % (0.1-2.0); Eosinophils # 0.2 K/mm3 (0.0-0.4); Eosinophils % 1.4 % (0.1-12.0); Hematocrit 27.1 % (42.0-52.0); Lymphocytes # 1.1 K/mm3 (0.7-4.5); Lymphocytes % 9.3 % (10-50); Mean Corpuscular HGB Conc 32.7 g/dL (31.8-35.4); Mean Corpuscular Hemoglobin 33.7 pg (27.0-31.2); Monocytes # 0.5 K/mm3 (0.1-1.0); Monocytes % 3.9 % (1.7-9.3); Neutrophils # 9.7 K/mm3 (1.8-7.8); Neutrophils % 85.2 % (37.0-80.0); Red Blood Count 2.63 M/mm3 (4.60-6.20); White Blood Count 11.3 K/mm3 (4.8-10.8)
[2021-03-14 09:43] LABS: MANUAL DIFFERENTIAL MANUAL DIFFERENTIAL (MANUAL DIFF); Platelet Count 38 K/mm3 (142-424)
[2021-03-14 09:49] LABS: Hemoglobin 8.9 g/dL (14.1-18.0)
[2021-03-14 09:54] LABS: Chloride 98 mmol/L (98-107); Potassium 4.8 mmoL/L (3.5-5.1); Sodium 134 mmol/L (136-145)
--- NOTE | 2021-03-14 09:54 | HMH.PHACONS ---
- Pharmacy Consult Date: 03/14/21 Time: 09:55 Referring provider: DR. KELLEY Reason for Consult:: VANCOMYCIN DOSING Allergies and ADEs:: Allergies Allergy/AdvReac Type Severity Reaction Status Date / Time Penicillins [PENICILLINS] Allergy Intermediate I-RASH Verified 11/12/20 09:48 Home Medications:: Home Medications Medication Instructions Recorded Confirmed Type Amlodipine Besylate [Norvasc 5mg 5 mg PO DAILY 09/29/17 03/13/21 History tablet] Atorvastatin Calcium [Lipitor 40mg 40 mg PO DAILY 09/29/17 03/13/21 History Tablet] Furosemide [Lasix 40mg tab] 80 mg PO BID 09/29/17 03/13/21 History Potassium Chloride [Klor-Con 20 20 meq PO TID 09/29/17 03/13/21 History mEq Packet] carvediloL [Coreg 25mg Tablet] 12.5 mg PO BID 09/29/17 03/13/21 History Ferrous Gluconate [Ferrous 324 mg PO DAILY 10/13/17 03/13/21 History Gluconate 324mg Tab] Alendronate Sodium [Alendronate 35 mg PO WEEKLY 11/12/20 03/13/21 History 35mg Tablet] Apixaban [Eliquis 5mg tab] 5 mg PO BID 11/12/20 03/13/21 History Cholecalciferol (Vitamin D3) 50,000 unit PO WEEKLY 11/12/20 03/13/21 History [Vitamin D3 50,000 unit Cap] Insulin Glargine,Hum.rec.anlog 20 units SQ DAILY 11/12/20 03/13/21 History [Lantus Solostar 100 Units/mL 3mL flexpen] Losartan Potassium 100 mg PO DAILY 11/12/20 03/13/21 History Metformin HCl [Metformin HCl ER] 2,000 mg PO HS 11/12/20 03/13/21 History Multivitamin 1 each PO DAILY 11/12/20 03/13/21 History Sotalol HCl [Sotalol] 80 mg PO DAILY 11/12/20 03/13/21 History Temazepam [Restoril 30mg Capsule] 30 mg PO HS 11/12/20 03/13/21 History Height: 1.8 m Weight: 112.066 kg Laboratory Results:: Laboratory Results - last 24 hr 10/16/21 14:45: WBC 8.1, RBC 3.09 L, Hgb 10.4 L, Hct 30.9 L, MCV 100.0 H, MCH 33.6 H, MCHC 33.6, RDW 17.7 H, Plt Count 71 L, MPV 11.1 H, Neut % (Auto) 84.4 H, Lymph % (Auto) 6.7 L, [place] % (Auto) 3.7, Eos % (Auto) 4.9, Baso % (Auto) 0.3, Neut # (Auto) 6.8, Lymph # (Auto) 0.5 L, [place] # (Auto) 0.3, Eos # (Auto) 0.4, Baso # (Auto) 0.0 03/13/21 14:45: Sodium 137, Potassium 5.3 H, Chloride 101, Carbon Dioxide 30, Anion Gap 11.3, BUN 36 H, Creatinine 1.30 H, Estimated Creat Clear 76, Estimated GFR 54 L, Est GFR ( Amer) 65, Glucose 153 H, Calcium 9.0, Total Bilirubin 1.0, AST 46, ALT 20, Alkaline Phosphatase 85, Total Protein 7.5, Albumin 4.3, Globulin 3.2, Albumin/Globulin Ratio 1.3 03/13/21 14:45: PT 11.8, INR 1.05 03/13/21 14:45: ESR 29 H 03/13/21 14:45: C-Reactive Protein 12.3 H, Procalcitonin 0.137 03/13/21 15:15: Lactate 2.9 H 03/13/21 15:15: Urine Color Straw, Urine Appearance Clear, Urine pH 5.5, Ur Specific [place] 1.010, Urine Protein Negative, Urine Glucose (UA) Negative, Urine Ketones Negative, Urine Blood Negative, Urine Nitrate Negative, Urine Bilirubin Negative, Urine Urobilinogen 0.2, Ur Leukocyte Esterase Negative, Ur Squamous Epith Cells Occasional, Urine Bacteria Trace 03/13/21 15:19: SARS-CoV-2 (PCR) Not detected, Influenza A Untype (PCR) Not detected, Influenza Type B (PCR) Not detected 03/13/21 17:36: POC Glucose 203 H 03/13/21 19:26: Lactate 3.4 H 03/13/21 20:03: POC Glucose 147 H 03/13/21 21:44: Lactate 2.3 H 03/14/21 05:54: POC Glucose 195 H 03/14/21 09:32: WBC 11.3 H D, RBC 2.63 L, Hgb 8.9 L D, Hct 27.1 L, MCV 103.0 H, MCH 33.7 H, MCHC 32.7, RDW 18.0 H, Plt Count 38 L* D, MPV 12.0 H, Neut % (Auto) 85.2 H, Lymph % (Auto) 9.3 L, [place] % (Auto) 3.9, Eos % (Auto) 1.4, Baso % (Auto) 0.2, Neut # (Auto) 9.7 H, Lymph # (Auto) 1.1, [place] # (Auto) 0.5, Eos # (Auto) 0.2, Baso # (Auto) 0.0 Medical History: Reports:: Atherosclerotic Heart Disease, Atrial Fibrillation, Congestive Heart Failure, Coronary Artery Disease, Diabetes Mellitus Type 2, Hyperlipidemia, Hypertension, MRSA, Myocardial Infarction, Peripheral Artery Disease Denies:: Cancer, Diabetes Mellitus Type 1, Internal Pacemaker, Lung Disease, Seizures Assessment and Plan (1) Gangrene of right foot Status: Acu
[2021-03-14 09:57] LABS: Blood Urea Nitrogen 40 mg/dl (9-20); Creatinine Clearance Estimated 53 mL/min (50-200); Estimated Glomerular Filt Rate 35 ml/min (>60); GFR (African American) 42 ML/MIN (>60)
[2021-03-14 09:58] LABS: Anion Gap 14.8 mEq/L (5-15); Calcium 8.1 mg/dl (8.4-10.2); Carbon Dioxide 26 mmol/L (22.0-30.0); Glucose 144 mg/dl (74-100)
[2021-03-14 10:22] LABS: Anisocytosis 1+; Lymphocytes % 12 % (10-50); Macrocytosis 1+; Monocytes % 7 % (2-9); Neutrophils % 81 % (42-76); Platelet Estimate Marked Decrease; Total Cells Counted 100
--- NOTE | 2021-03-14 11:51 | HMH.ORTHOCON ---
*Admission Date: 03/13/21 *Reason for consult:: Right foot pain/gangrene of the second toe *History of present illness: 76-year-old male presented to the emergency department with 2 to 3 days of right foot pain with discoloration in the right foot. Patient had injured his second right toe while trying to trim his toenail. He believes he cut the nail too short and ended up causing a small cut on the tip of the toe. Over the following 48 to 72 hours discoloration had developed in the second toe. Discoloration was purple and was beginning to spread to the distal foot. He had increasing pain in the foot along with inability to ambulate. Patient has a history of peripheral arterial disease and tells me he was actually scheduled for vascular surgery consultation this coming Monday to look at potential bypass surgery in the lower extremity. In addition to his peripheral arterial disease patient has diabetic peripheral neuropathy. He admits to having chills but no documented fevers as of yet. Patient endorses general malaise as well. [facility] History I have reviewed the patient's past medical history: Yes Medical History: Reports:: Atherosclerotic Heart Disease, Atrial Fibrillation, Congestive Heart Failure, Coronary Artery Disease, Diabetes Mellitus Type 2, Hyperlipidemia, Hypertension, MRSA, Myocardial Infarction, Peripheral Artery Disease Denies:: Cancer, Diabetes Mellitus Type 1, Internal Pacemaker, Lung Disease, Seizures *Have you ever received a pneumonia vaccine?: Yes *Have you received a flu vaccine this season?: Yes Other Medical History: Reports: Anemia, Arthritis, Cataracts, Other Other Surgeries: Yes: Cardiac Catheterization, Coronary Stent (x12). No: Pacemaker Amputation: No Fractures: Yes (right ankle fx with surgical repair) - *Social History Last grade of school completed: 7th or 8th Smoking Status: Never smoker Alcohol Intake: never *Occupational Status:: retired Housing: house Household Members: spouse *Travel in the last 8 weeks: None Family Hx:: Other Review of Systems - Review of Systems Review of systems:: pertinent systems reviewed and negative unless documented below - Constitutional Denies chills, Denies fever(s) - Eyes Denies change in vision - ENT Denies abnormal hearing, Denies difficulty swallowing - *Cardiovascular Denies chest pain, Denies shortness of breath with activity - *Respiratory Denies chest congestion, Denies cough - *Gastrointestinal Denies abdominal pain - *Musculoskeletal Reports abnormal walking, Reports joint pain, Reports limited joint movement - *Neurologic Denies seizure-like activity - Hematologic/Lymphatic Reports easy bleeding, Reports easy bruising Meds Home Medications Medication Instructions Recorded Confirmed Type Amlodipine Besylate [Norvasc 5mg 5 mg PO DAILY 09/29/17 03/13/21 History tablet] Atorvastatin Calcium [Lipitor 40mg 40 mg PO HS 09/29/17 03/14/21 History Tablet*] Furosemide [Lasix 40mg tablet] 80 mg PO BID 09/29/17 03/13/21 History Potassium Chloride [Klor-Con 20 20 meq PO TID 09/29/17 03/13/21 History mEq Packet] carvediloL [Coreg 25mg Tablet] 12.5 mg PO BID 09/29/17 03/13/21 History Ferrous Gluconate [Ferrous 324 mg PO DAILY 10/13/17 03/13/21 History Gluconate 324mg Tab] Alendronate Sodium [Alendronate 35 mg PO WEEKLY 11/12/20 03/13/21 History 35mg Tablet] Apixaban [Eliquis 5mg tab] 5 mg PO BID 11/12/20 03/13/21 History Cholecalciferol (Vitamin D3) 50,000 unit PO WEEKLY 11/12/20 03/13/21 History [Vitamin D3 50,000 unit Cap] Insulin Glargine,Hum.rec.anlog 20 units SQ DAILY 11/12/20 03/13/21 History [Lantus Solostar 100 Units/mL 3mL flexpen] Losartan Potassium 100 mg PO DAILY 11/12/20 03/13/21 History Metformin HCl [Metformin HCl ER] 2,000 mg PO HS 11/12/20 03/13/21 History Multivitamin 1 each PO DAILY 11/12/20 03/13/21 History Sotalol HCl [Sotalol] 80 mg PO DAILY 11/12/20 03/13/21 History Allergies
[2021-03-14 12:11] LABS: POC Glucose,Bedside 166 (70-110)
--- NOTE | 2021-03-14 15:32 | HMH.PHAVTE ---
[facility] Pharmacy VTE Monitoring - Patient Demographics Admission date: 03/14/21 Report Date: 03/14/21 Time: 15:32 Allergies/Adverse Reactions: Patient Allergies Penicillins [PENICILLINS] Allergy (Intermediate, Verified 11/12/20 09:48) I-RASH Height: 1.8 m Weight: 112.066 kg Patient Problems: Current Active Problems Gangrene of right foot (Acute) Type 2 diabetes mellitus with hyperglycemia (Acute) Diabetes mellitus, with long-term current use of insulin (Acute) Peripheral arterial disease (Acute) Diabetic peripheral neuropathy (Acute) Coronary artery disease (Acute) Atrial fibrillation (Acute) Obesity (Acute) - VTE Risk Labs: VTE Related Lab Results Hgb 8.9 g/dL (14.1-18.0) L D 03/14/21 09:32 Hct 27.1 % (42.0-52.0) L 03/14/21 09:32 Plt Count 38 K/mm3 (142-424) L* D 03/14/21 09:32 PT 11.8 seconds (10.1-12.5) 03/13/21 14:45 INR 1.05 (0.9-1.1) 03/13/21 14:45 BUN 40 mg/dl (9-20) H 03/14/21 09:32 Creatinine 1.90 mg/dl (0.66-1.25) H D 03/14/21 09:32 Estimated Creat Clear 53 mL/min (50-200) 03/14/21 09:32 VTE Score: 5 VTE Risk Level: Low Risk - Prophylaxis Types of VTE Prophylaxis: TEDS Knee High Location of Applied Device: Bilateral Lower Extremeties (FRANCK HOSE ORDERED)
[2021-03-14 16:44] LABS: POC Glucose,Bedside 215 (70-110)
--- NOTE | 2021-03-14 17:29 | PC.NURSE ---
No acute changes noted this shift, patient has been pleasant and cooperative, right foot left ALBER, Dr Plata consulting tomorrow, NPO p MN in preparation for consult, has been treated for pain with morphine per emar x1 this shift with good results, vss, will continue to monitor for changes.
--- NOTE | 2021-03-14 19:24 | PC.NURSE ---
[id number]- unable to verify platelets using electronic tar, paper verification filled out, platelets verified by this RN and Regla Taylor RN
[2021-03-14 20:41] LABS: POC Glucose,Bedside 165 (70-110)
[2021-03-15] VITALS (37 sets, daily range): BP systolic 83–113; BP diastolic 42–67; PULSE 70–89; RESP 12–24; TEMP 36.6–38.4; O2SAT 89–100; BMI 36.1
--- NOTE | 2021-03-15 04:07 | PC.NURSE ---
No acute changes overnight. PT A&O x4, has c/o pain in the right foot x1, morphine given per jul. Pt has received 3 units of platelets this shift. NPO since midnight. pt sats dropped to 86-87 during the night and sustained there, pt placed on 2L NC while asleep, sats improved to low 90s. right foot is ALBER, draining small amounts of serous drainage. VSS, call light in reach, no concerns at this time.
[2021-03-15 06:08] LABS: POC Glucose,Bedside 138 (70-110)
--- NOTE | 2021-03-15 07:00 | US_ITS ---
APPROVED REPORT Exam Type: Ankle to Brachial Index Concrete Floor Installer: RT Martina(R) Indications Claudication: Bilaterally Non-healing Ulcer: Right Rest Pain: Bilaterally CAD Right gangrene toe/foot. Patient states he has stents in legs in the y of the groin Risk Factors Hypertension CAD Hyperlipidemia Obesity TIA/CVA History Diabetes History of Smoking Pressures/Indices Right Indices Left Indices Brachial 87.00 mmHg Brachial 88.00 mmHg Low Thigh 38.00 mmHg 0.43 Low Thigh 83.00 mmHg 0.94 Calf 241.00 mmHg 2.74 Calf 121.00 mmHg 1.38 Ankle(PT) 60.00 mmHg 0.68 Ankle(PT) 60.00 mmHg 0.68 Ankle(DP) 30.00 mmHg 0.34 Ankle(DP) 67.00 mmHg 0.76 Findings RT JOHN=0.68 LT JOHN=0.76 RT TBI=unobtainable LT TBI=unobtainable Diminished pulses bilaterally Diminished waveforms bilterally Multiple attempts made to obtain toe waveforms for TBI. No waveform detected. Conclusion RT JOHN=0.68 LT JOHN=0.76 RT TBI=unobtainable LT TBI=unobtainable Diminished pulses bilaterally Diminished waveforms bilterally Moderate bilateral arterial disease Multiple attempts made to obtain toe waveforms for TBI. No waveform detected. Electronically signed by : Jake Moreau MD 03/15/2021 15:25:57
[2021-03-15 07:12] LABS: Basophils % 0.2 % (0.1-2.0); Eosinophils # 0.3 K/mm3 (0.0-0.4); Eosinophils % 3.1 % (0.1-12.0); Hematocrit 23.8 % (42.0-52.0); Lymphocytes # 1.1 K/mm3 (0.7-4.5); Lymphocytes % 11.7 % (10-50); Mean Corpuscular HGB Conc 31.8 g/dL (31.8-35.4); Mean Corpuscular Hemoglobin 32.8 pg (27.0-31.2); Mean Corpuscular Volume 103.3 fl (80-94); Mean Platelet Volume 9.1 fl (7.4-10.4); Monocytes # 0.6 K/mm3 (0.1-1.0); Monocytes % 6.2 % (1.7-9.3); Neutrophils # 7.6 K/mm3 (1.8-7.8); Neutrophils % 78.7 % (37.0-80.0); Platelet Count 106 K/mm3 (142-424); Red Cell Distribution Width 17.8 % (11.5-17.5); White Blood Count 9.7 K/mm3 (4.8-10.8)
[2021-03-15 07:17] LABS: Hemoglobin 7.5 g/dL (14.1-18.0)
[2021-03-15 07:20] LABS: Chloride 96 mmol/L (98-107); Potassium 4.6 mmoL/L (3.5-5.1); Sodium 133 mmol/L (136-145)
[2021-03-15 07:23] LABS: Blood Urea Nitrogen 54 mg/dl (9-20); Creatinine Clearance Estimated 36 mL/min (50-200); Estimated Glomerular Filt Rate 21 ml/min (>60); GFR (African American) 26 ML/MIN (>60)
[2021-03-15 07:24] LABS: Anion Gap 16.6 mEq/L (5-15); Calcium 7.8 mg/dl (8.4-10.2); Carbon Dioxide 25 mmol/L (22.0-30.0); Glucose 123 mg/dl (74-100)
[2021-03-15 07:30] LABS: C-Reactive Protein 308.3 mg/L (0-4)
--- NOTE | 2021-03-15 07:36 | HMH.ACPN2 ---
Internal Medicine - PN: Subj *Date: 03/15/21 *Time: 07:36 Interval history: Patient reports persistent pain in the right foot. Patient is currently undergoing an JOHN. is at bedside. She confirms in October of this year attempts were made to address arterial disease in the left leg but apparently the patient's been told there are no intervention options for the right leg. Exam Vital signs and Labs for Last 24 Hours: Temp Pulse Resp BP Pulse Ox 98.3 F 70 18 87/48 L 98 03/15/21 04:00 03/15/21 04:00 03/15/21 04:00 03/15/21 04:00 03/15/21 04:00 Laboratory Results - last 24 hr 03/13/21 14:45: Blood Type Confirm A Negative 03/14/21 09:32: WBC 11.3 H D, RBC 2.63 L, Hgb 8.9 L D, Hct 27.1 L, MCV 103.0 H, MCH 33.7 H, MCHC 32.7, RDW 18.0 H, Plt Count 38 L* D, MPV 12.0 H, Neut % (Auto) 85.2 H, Lymph % (Auto) 9.3 L, Evangeline % (Auto) 3.9, Eos % (Auto) 1.4, Baso % (Auto) 0.2, Neut # (Auto) 9.7 H, Lymph # (Auto) 1.1, Evangeline # (Auto) 0.5, Eos # (Auto) 0.2, Baso # (Auto) 0.0, Total Counted 100, Neutrophils % (Manual) 81 H, Lymphocytes % (Manual) 12, Monocytes % (Manual) 7, Platelet Estimate Marked decrease, RBC Morphology Not Reportable, Anisocytosis 1+, Macrocytosis 1+ 03/14/21 09:32: Sodium 134 L, Potassium 4.8, Chloride 98, Carbon Dioxide 26, Anion Gap 14.8, BUN 40 H, Creatinine 1.90 H D, Estimated Creat Clear 53, Estimated GFR 35 L, Est GFR ( Amer) 42 L D, Glucose 144 H, Calcium 8.1 L 03/14/21 12:01: POC Glucose 166 H 03/14/21 13:57: Blood Type A Negative 03/14/21 16:38: POC Glucose 215 H 03/14/21 20:06: POC Glucose 165 H 03/15/21 06:00: POC Glucose 138 H 03/15/21 06:39: WBC 9.7, RBC 2.30 L, Hgb 7.5 L D, Hct 23.8 L, MCV 103.3 H, MCH 32.8 H, MCHC 31.8, RDW 17.8 H, Plt Count 106 L D, MPV 9.1, Neut % (Auto) 78.7, Lymph % (Auto) 11.7, Evangeline % (Auto) 6.2, Eos % (Auto) 3.1, Baso % (Auto) 0.2, Neut # (Auto) 7.6, Lymph # (Auto) 1.1, Evangeline # (Auto) 0.6, Eos # (Auto) 0.3, Baso # (Auto) 0.0 03/15/21 06:39: Sodium 133 L, Potassium 4.6, Chloride 96 L, Carbon Dioxide 25, Anion Gap 16.6 H, BUN 54 H D, Creatinine 2.90 H D, Estimated Creat Clear 36, Estimated GFR 21 L, Est GFR ( Amer) 26 L D, Glucose 123 H, Calcium 7.8 L, C-Reactive Protein 308.3 H I & O for Last 24 hours: Intake & Output 03/12/21 03/13/21 03/14/21 03/15/21 11:59 11:59 11:59 11:59 Intake Total 240 / 240 1819 / 1819 Balance 240 / 240 1819 / 1819 Weight 247 lb 1 oz 258 lb 4 oz Microbiology Reports for the Last 24 Hours: Microbiology 03/13/21 15:25 Foot,Right - Drainage Gram Stain - Final 03/13/21 15:25 Foot,Right - Drainage Wound Culture - Preliminary NO GROWTH AFTER 24 HOURS - Constitutional no acute distress - *Routine Respiratory Exam Present: CTA bilaterally - *Routine Cardiovascular Exam Present: RRR - *Routine Abdominal Exam Present: soft, obese - *Routine Extremities Exam Comments: Right foot is cool. The great toe appears pale. There is significant bruising on the lateral aspect of the foot. There are gangrenous changes of the second toe. Assessment and Plan (1) Gangrene of right foot Status: Acute Category: Medical Code(s): I96 - Gangrene, not elsewhere classified (2) Type 2 diabetes mellitus with hyperglycemia Status: Acute Category: Medical Code(s): E11.65 - Type 2 diabetes mellitus with hyperglycemia (3) Diabetes mellitus, with long-term current use of insulin Status: Acute Category: Medical Code(s): E11.9 - Type 2 diabetes mellitus without complications; Z79.4 - FDC (current) use of insulin (4) Peripheral arterial disease Status: Acute Category: Medical Code(s): I73.9 - Peripheral vascular disease, unspecified (5) Diabetic peripheral neuropathy Status: Acute Category: Medical Code(s): E11.42 - Type 2 diabetes mellitus with diabetic polyneuropathy (6) Coronary artery disease Status: Acute Category: Medical Code(s): I25.10 - Atheroscle
[2021-03-15 07:43] LABS: Erythrocyte Sedimentation Rate > 140 mm/hr (0-20)
--- NOTE | 2021-03-15 07:44 | CA_ITS ---
APPROVED REPORT EXAM: Comprehensive 2D, Doppler, and color-flow Echocardiogram Defensive Fire Control Systems Operator: Bailey Gill RT(R) Ht: 5 ft 11 in Wt: 242lbs BSA: 2.29 BP: 000/00 mmHg Indications: CHF, HTN, DM, obesity, gangrene right foot, AFIB, CAD, PAD, hx PR, hyperlpidemia Echo Enhancing Agent Indication: Endocardial border delineation Agent(s) / Amount(s) Used: Definity 2 cc 2D Dimensions LVOT 2.13 cm (M/F) 1.5-2.5 LA Volume 61.80 mL LA Volume Index 27.10 mL/m2 (M/F) 16-34 M-Mode Dimensions RVDd 2.75 cm (0.9-2.6) LA Diam 5.24 cm (1.9-4.0) LVDd 6.38 cm (3.5-5.7) Ao Diam 3.20 cm (2.0-3.7) LVDs 5.45 cm (3.5-5.7) IVSd 0.85 cm (0.6-1.1) PWd 0.85 cm (0.6-1.1) EF (Teich) 30.20% FS 14.60% EDV (Teich) 207.00 mL ESV (Teich) 144.40 mL LV Diastology E Decel Time 170.00 (160-240 msec) E/A Ratio 2.1 MED E' 7.20 (< 7 cm/sec) E'/MED E' Ratio 17.37 (>14) LAT E' 7.60 (<10 cm/sec) E/LAT E' Ratio 16.46 (>14) Aortic Valve LVOT Max 110.00 (70-110 cm/s) LVOT VTI 21.30 cm AoV Peak Tevin. 243.00 (50-130 cm/s) AO Peak GR. 23.70 mmHg AO Mean GR. 11.60 (<5 mmHg) AO VTI 45.15 (18-25 cm) JESSICA (VTI) 1.68 (2.5-4.5 cm2) Mitral Valve MV E Max Tevin. 125.00 (40-130 cm/s) MV A Velocity 59.00 (40-130 cm/s) E/A Ratio 2.10 MV Decel. Time 170.00 (160-240 ms) MV PHT 50.00 ms Tricuspid Valve TR P. Velocity 306.00 cm/s RAP Estimate 15.00 mmHg RVSP 52.50 mmHg Left Ventricle Technically difficult study, Definity contrast was utilized to delineate the endocardial surfaces, left atrium is mildly enlarged, left ventricle is mildly dilated, there is reduced left ventricular systolic function, visually estimated ejection fraction 30 to 35%, there is marked hypokinesis involving mid to distal septum, anterior and apical wall. There is no left ventricular thrombus seen, diastolic parameters are inconclusive. Right Ventricle Right atrium and right ventricle are normal size and contractility. Aortic Valve Aortic valve is thickened and calcified with restriction in the leaflet mobility, morphologically there is at least moderate to severe aortic stenosis, however calculated valve area is 1.5 cm??? there is no significant aortic insufficiency seen. Mitral Valve Mitral valve leaflets are minimally thickened, there is moderate mitral regurgitation. Tricuspid Valve Tricuspid valve grossly normal, there is mild tricuspid regurgitation, calculated right ventricular systolic pressure is 52 mmHg. Pulmonic Valve Pulmonic valve is poorly visualized. Great Vessels Aortic root is normal size. Inferior vena cava is poorly visualized. Pericardium No significant pericardial effusion noted. Conclusion 1. Technically difficult study because of the patient factors and poor acoustic windows, Definity contrast was utilized to delineate the endocardial surfaces. Left ventricle is dilated, there is severe reduced left ventricular systolic function, visually estimated ejection fraction 30 to 35% with multiple segmental wall motion abnormalities described above, there is no left ventricular thrombus seen. Diastolic parameters are inconclusive. 2. Thickened and calcified aortic valve the valve area is 1.5 cm???, morphologically there appears to be moderate to severe aortic stenosis, there is no significant aortic insufficiency. 3. Moderate mitral and mild tricuspid regurgitation, calculated right ventricular systolic pressure of 52 mmHg. 4. No significant pericardial effusion noted. 5. Inferior vena ca
--- NOTE | 2021-03-15 07:44 | SW/DCPLANNER ---
PATIENT ADMITTED TO [facility] WITH A GANGRENE OF THE RIGHT FOOT... PATIENT IS FROM HOME AND MAY REQUIRE SURGICAL INTERVENTION PRIOR TO DISCHARGING HOME.. WILL SEE PATIENT ONCE SURGERY AND ASSIST WITH ANY NEEDS HE MAY HAVE... DISPOSITION UNCERTAIN AT THIS TIME..
--- NOTE | 2021-03-15 08:07 | CT_ITS ---
PROCEDURE: CT FOOT RT WO CON CLINICAL HISTORY: R/o osteomyelitis COMPARISON: CR XR FOOT RT MIN 3V from 03/13/2021 TECHNIQUE: Axial images obtained with sagittal and coronal reformats. All CT scans at the facility use one or more dose reduction, viz: automated exposure control, ma/kV adjustment per patient size (including targeted exams where dose is matched to indication, i.e. head), or iterative reconstruction technique. FINDINGS: There is subcutaneous soft tissue thickening along the dorsal aspect of the foot. There is diffuse subcutaneous soft tissue gas and also soft tissue gas noted within the intermetatarsal spaces and deep to the head of the 2nd metatarsal. No obvious bony destructive changes are apparent. There is thinning of the subcutaneous tissues along the dorsal aspect of the 2nd middle phalanx IMPRESSION: 1. Diffuse subcutaneous edema and gas with deep soft tissue gas in the foot as described above consistent with gangrenous infection in the absence of recent debridement or trauma. There is thinning of the subcutaneous tissues along the 2nd middle phalanx which may represent ulceration. Please correlate with clinical parameters. Necrotizing fasciitis is consideration. 2. No obvious bony destructive process that would indicate osteomyelitis. 3. No obvious abscess. Dictated by: Jake Moreau MD 03/15/2021 09:35 Jake Moreau MD in [place] 03/15/2021 09:35
--- NOTE | 2021-03-15 08:19 | HMH.ORTHOCON ---
*Admission Date: 03/14/21 <Dejah Cameron - 03/15/21 08:51> *Reason for consult:: Right foot gangrene <Dejah Cameron - 03/15/21 08:51> *History of present illness: 76-year-old male presented to the emergency department with 2 to 3 days of right foot pain with discoloration in the right foot. Patient had injured his second right toe while trying to trim his toenail. He believes he cut the nail too short and ended up causing a small cut on the tip of the toe. Over the following 48 to 72 hours discoloration had developed in the second toe. Discoloration was purple and was beginning to spread to the distal foot. He had increasing pain in the foot along with inability to ambulate. Patient has a history of peripheral arterial disease and tells me he was actually scheduled for vascular surgery consultation this coming Monday to look at potential bypass surgery in the lower extremity. In addition to his peripheral arterial disease patient has diabetic peripheral neuropathy. He admits to having chills but no documented fevers as of yet. Patient endorses general malaise as well. Podiatry Consult- 76yr. old male, resting in bed this am at the bedside. Patient states the wound to his right foot started from him clipping his toenails and accidentally cutting the skin causing the wound to flareup in less than 2 days he had huge blister and toes were already starting to turn purple. Today the gangrene has extended to the entire forefoot with the toes a dark purple and the blister has enlarged since yesterday. The entire foot is very tender to touch. The right forefoot was cleaned with betadine and then using a #15 blade to make a small incision in the blister and culture the drainage and the foot under the blister fold. Clear serosanguineous drainage was expressed in copious amounts. The blister area is now flattened but skin remains intact to the top of the foot. The area was then cleaned once again with Betadine and then redressed with Betadine soaked 4 x 4, dry 4 x 4 and Kerlix. <Dejah Cameron - 03/15/21 08:51> [facility] History I have reviewed the patient's past medical history: Yes <Meryl Plata - 03/15/21 10:24> Yes <Dejah Cameron 03/15/21 08:51> Medical History: Reports:: Atherosclerotic Heart Disease, Atrial Fibrillation, Congestive Heart Failure, Coronary Artery Disease, Diabetes Mellitus Type 2, Hyperlipidemia, Hypertension, MRSA, Myocardial Infarction, Peripheral Artery Disease Denies:: Cancer, Diabetes Mellitus Type 1, Internal Pacemaker, Lung Disease, Seizures <Dejah Cameron 03/15/21 08:51> *Have you ever received a pneumonia vaccine?: Yes <Dejah Cameron 03/15/21 08:51> *Have you received a flu vaccine this season?: Yes <NishaDejah Hudson 03/15/21 08:51> Other Medical History: Reports: Anemia, Arthritis, Cataracts, Other <Dejah Cameron 03/15/21 08:51> Other Surgeries: Yes: Cardiac Catheterization, Coronary Stent (x12). No: Pacemaker <NeshaalanaDejah Hudson 03/15/21 08:51> Amputation: No <NishaDejah Hudson 03/15/21 08:51> Fractures: Yes (right ankle fx with surgical repair) <NishaDejah Hudson 03/15/21 08:51> - *Social History Last grade of school completed: 7th or 8th <NishaDejah Hudson 03/15/21 08:51> Smoking Status: Never smoker <NeshaalanaDejah Hudson 03/15/21 08:51> Alcohol Intake: never <NeshaalanaDejah Hudson 03/15/21 08:51> *Occupational Status:: retired <NeshaalanaDejah Hudson 03/15/21 08:51> Housing: house <NeshaalanaDejah Hudson 03/15/21 08:51> Household Members: spouse <ChunlesliealanaDejah L 03/15/21 08:51> *Travel in the last 8 weeks: None <ChunDejah katz Becca Darryn 03/15/21 08:51> Family Hx:: Other <Dejah Cameron Becca Darryn 03/15/21 08:51> Review of Systems - Review of Systems Review of systems:: pertinent systems reviewed and negative unless documented below <Meryl Plata - 03/15/21 10:24> - Constitutional Reports weakness <Meryl Plata - 03/15/21 10:24>
[2021-03-15 11:01] LABS: POC Glucose,Bedside 184 (70-110)
--- NOTE | 2021-03-15 11:21 | HMH.CNCARD ---
<MillyLety - Last Filed: 03/15/21 11:21> History of Present Illness Consult date: 03/15/21 Requesting physician: Meryl Plata Chief complaint: PAD History of present illness: 76-year-old male admitted to [facility] with right foot gangrene and PAD. Patient presented to the emergency room with increased right foot pain along with increased swelling and discoloration. Patient states he had been trying to trim his toenails when he thinks, maybe he had cut too far. Patient states in the past few days he has not been able to ambulate as well due to right foot pain. Patient does have history of PAD. Patient states he was diagnosed a few months ago. Patient states welfare project manager at [facility] try to perform a lower extremity runoff and was able to access. Patient was scheduled to see vascular surgeon this Monday for possible bypass of the lower extremity due to PAD. is at bedside. stated that she did cancel that appointment. Patient denies chest pain, tightness or pressure. Patient does complain of dyspnea. Patient complains of general weakness. Patient does have history of coronary artery disease. History of atrial fibrillation in which he is on Eliquis for anticoagulation. This is being managed by welfare project manager at [facility]. Patient has history of diabetes which is managed by PCP. History of hyperlipidemia. Right foot noted with swelling and discoloration. Cardiology was consulted by podiatry due to PAD. Podiatry is managing right foot pain and gangrene. Podiatry does plan on taking patient to surgery for I&D of the right foot today. Patient is noted to be hypotensive. Lab results revealed low H&H and creatinine of 2.9. PCP has ordered patient to be transfused 1 to 2 units of packed red blood cells today. Patient does complain of lower extremity pain. Due to patient being hemodynamically unstable, no cardiac procedure is indicated at this time. Once patient is hemodynamically stable, patient may benefit from an lower extremity runoff to determine severity of PAD. Will obtain echocardiogram to assess LV function and valve status. Pending on the echocardiogram results, medications and treatment therapies may be recommended. Discussed plan of care with Dr. Reyes. Orders and recommendations were received from Dr. Reyes. Please notify cardiology of any changes in patient status. Once patient is hemodynamically stable, patient may benefit from a lower extremity runoff to determine severity of PAD. Thank you for allowing cardiology to participate in the care of this patient. [facility] History I have reviewed the patient's past medical history: Yes Medical History: Reports:: Atherosclerotic Heart Disease, Atrial Fibrillation, Congestive Heart Failure, Coronary Artery Disease, Diabetes Mellitus Type 2, Hyperlipidemia, Hypertension, MRSA, Myocardial Infarction, Peripheral Artery Disease Denies:: Cancer, Diabetes Mellitus Type 1, Internal Pacemaker, Lung Disease, Seizures *Have you ever received a pneumonia vaccine?: Yes *Have you received a flu vaccine this season?: Yes Other Medical History: Reports: Anemia, Arthritis, Cataracts, Other Other Surgeries: Yes: Cardiac Catheterization, Coronary Stent (x12). No: Pacemaker Amputation: No Fractures: Yes (right ankle fx with surgical repair) - *Social History Last grade of school completed: 7th or 8th Smoking Status: Never smoker Alcohol Intake: never *Occupational Status:: retired Housing: house Household Members: spouse *Travel in the last 8 weeks: None Family Hx:: Other Meds Home Medications Medication Instructions Recorded Confirmed Type Amlodipine Besylate [Norvasc 5mg 5 mg PO DAILY 09/29/17 03/13/21 History tablet] Atorvastatin Calcium [Lipitor 40mg 40 mg PO HS 09/29/17 03/14/21 History Tablet] Furosemide [Lasix 40mg tab] 80 mg PO BID 09/29/17 03/13/21 History Potassium Chloride [Klor-Con 20 20 meq PO TID 09/29
--- NOTE | 2021-03-15 13:22 | SUR.PREOP ---
1255- transported patient from room to preop while transfusing PRBC. Infusion documented on JUL as needed. Patient tolerating well . Temperature increase noted and temperature was taken orally in room and temporal in preop. OR nurse to be instructed to watch for continued increase in temperature or changes in vitals. Patient denies any pain related to infusion stated just his foot hurts
--- NOTE | 2021-03-15 13:58 | HMH.ANESCL ---
[facility] Anesthesia Checklist - Patient Identification Patient Identification: Arm Band - Structural Data Admitted From: Inpatient Planned Operative Procedure/s: Foot I & D Consent for Planned Operative Procedure(s) Verified: Yes - NPO Status Verified Time NPO: 00:00 - Additional verifications Anesthesia Reactions: No - Airway Assessment C-Spine Mobility Assessed: Yes TMJ Mobility Assessed: Yes Dentition: Edentulous - Neurological Assessment Level of Consciousness: Awake Hx Seizures: No Numbness or tingling in extremities: No - Anesthesia Plan Anesthesia Risk discussed: Yes Anesthesia Plan: Verified ASA Class: IV Anesthesia Type: General [facility] History I have reviewed the patient's past medical history: Yes Medical History: Reports:: Atherosclerotic Heart Disease, Atrial Fibrillation, Congestive Heart Failure, Coronary Artery Disease, Diabetes Mellitus Type 2, Hyperlipidemia, Hypertension, MRSA, Myocardial Infarction, Peripheral Artery Disease, Renal Disease, Transient Ischemic Attacks (TIA) Denies:: Cancer, Diabetes Mellitus Type 1, Internal Pacemaker, Lung Disease, Seizures *Have you ever received a pneumonia vaccine?: Yes *Have you received a flu vaccine this season?: Yes Other Medical History: Reports: Anemia, Arthritis, Cataracts, Other (Thrombocytopenia) Anesthesia experience/problems:: None Other Surgeries: Yes: Cardiac Catheterization, Coronary Stent (x12). No: Pacemaker Amputation: No Fractures: Yes (right ankle fx with surgical repair) - *Social History Last grade of school completed: 7th or 8th Smoking Status: Never smoker Alcohol Intake: never Substance Use Type: denies use *Occupational Status:: retired Housing: house Household Members: spouse *Travel in the last 8 weeks: None Family Hx:: Other
--- NOTE | 2021-03-15 14:26 | PC.NURSE ---
ERROR [id number] TIME
--- NOTE | 2021-03-15 14:32 | SUR.PREOP ---
1427 PT TO OR WITH SURGERY STAFF, BLOOD CONTINUING TO INFUSE.
--- NOTE | 2021-03-15 15:37 | HMH.OPNOTE ---
Date of procedure: 03/15/21 Pre-op Diagnosis:: 1. Right foot gas gangrene 2. Right DM foot infection 3. Right 2nd toe laceration 4. PAD Post-op Diagnosis:: Same Procedure performed:: 1. Right foot incision and drainage 2. Right foot debridement Surgeon:: Meryl Plata DPM ONLINE SERVICES MANAGER:: Bhanu Lainez Anesthesia: GETA, local (20cc 0.5% dominik plain) Estimated blood loss (mL): 5 Clinical Note:: New consult from 03/15/2021 for right foot gangrene. Initial x-rays and labs show no gas or osteomyelitis. ESR and CRP significantly elevated today compared to 03/13/2021. CT right foot ordered to evaluate for osteomyelitis, abscess or gas infection. Significant gas noted on the CT scan. Decision made to take patient to surgery for I&D. Risks and benefits of surgery reviewed with the patient and his . See consult note for details. Operative findings:: Right foot had localized edema and erythema with a cellulitis extending to the tarsometatarsal joint. Skin sloughing noted. Significant drainage noted from the interspaces 1 through 5. Creamy purulence and serosanguineous fluid notably worse around the second MPJ. Malodor noted. The soft tissue around the 2nd MPJ was necrotic, slough and tissue/muscle was easily shredding. Small laceration noted at the distal tip of the second toe lateral nail border measuring less than 0.2 x 0.1 x 0.1. Likely source of infection where he cut the nail trying to self trim. The infection did appear to track up the extensor tendons. It also tracked down the interspaces plantarly along the interspaces and flexor tendons. Post I&D, skin already had gangrenous changes with worsening blue dusky appearance. Given how fast there were worsening changes intraoperatively, if the patient does not have improved circulation via runoff and REL stent, he will likely need a below-knee amputation. Operative note:: On this date and time the patient was deemed an appropriate surgical candidate. With informed consent time patient was transferred from the preoperative holding area to the operating theater placed on table in a normal supine position. Right lower extremity was prepped and draped in normal sterile fashion. No tourniquet utilized. 20 cc of half percent Marcaine plain were infiltrated in regional ankle block. Right foot debridement: Attention was directed to the right dorsal and plantar foot where edema and erythema was noted. Small laceration to right 2nd toe, lateral border next to toenail. Forceps and 15 blade was used to sharply debride necrotic nonviable full soft tissue from the dorsal skin including blistered skin sloughing. The dorsal skin was bluish dusky and extended about 12 x 8 x 0.0 cm thru skin prior to incision and drainage. Right foot incision and drainage: Utilizing a 15 blade, a linear incision was made over the 1st interspace ~5x0.2x1.5cm full thickness to the level of the bone. Another linear incision was made over the third interspace 5 x 0.2 x 1.3 cm deep full-thickness to the level of the bone. Another linear incision was made over the fifth metatarsal laterally about 4 x 0.2 x 1.5 cm deep to bone. There was malodor and purulent drainage noted. Another incision made plantarly over the first and third interspaces, measuring 3 x 0.2 x 0.8 cm deep full-thickness to bone. Skin sloughing. The underlying soft tissue was also sloughy, necrotic, easily treatable. The tissue was a grayish-blue appearance. Pressure was applied to the incisions and immediately 3 more cc of purulent drainage was expressed. Deep wound culture taken from 2nd MPJ. Next hemostat used to explore the area. The incision over the 1st MPJ/interspace did track around the bone and extended up medial arch 3 cm. Gentamicin and saline irrigation used to flush all incisions. The wound was explored and no more purulence was noted. Betadine soaked iodophor packing was inserted into the 3 dorsal and 2 plantar incision sies. Betadine soaked gauze, with dry sterile d
--- NOTE | 2021-03-15 15:49 | HMH.ANESI ---
[facility] Anesthesia Record Part I Intake, IV Amount: 600 Estimated blood loss (mL): 25 Urine output (mL): 800 Blood Pressure: 91/48 SaO2: 95 Pulse Rate: 81 Respiratory Rate: 18 Temperature: 101.1 F Patient is:: Drowsy, Oral/Nasal airway Stable to PACU at:: 15:40
[2021-03-15 15:51] LABS: POC Glucose,Bedside 153 (70-110)
--- NOTE | 2021-03-15 16:12 | SUR.PHASEI ---
1609- report called to luis a granados on med surg floor.
[2021-03-15 16:28] LABS: Microscopic,Cath URINE MICROSCOPIC (MICROSCOPIC)
[2021-03-15 17:25] LABS: Appearance,Urine/Cath CLEAR (Clear); Bilirubin,Cath Negative (Negative); Blood, Urine/Cath Negative (Negative); Color,Urine/Cath YELLOW (Yellow); Glucose,Urine/Cath (UA) Negative (Negative); Ketones,Urine/Cath TRACE (Negative); Leukocyte Esterase,Cath Negative (Negative); Nitrate,Cath Negative (Negative); Protein,Urine/Cath Negative (Negative); Specific Gravity, Urine/Cath 1.025 (1.005-1.030); Urobilinogen,Cath 0.2 EU/dl (0.2)
--- NOTE | 2021-03-15 18:23 | PC.NURSE ---
Pt has been alert and oriented x4 for the majority of the shift. He has been pleasantly confused since arriving back to the floor. Jack was placed during surgery and pt keeps wanting to go to the bathroom to urinate. He needs frequent reminding that he has a catheter. His dressing to his rt foot is clean, dry and intact. He denies pain at this time. is at bedside and is very helpful with keeping pt calm. He has received 2 units of PRBC's this shift. He was partially through the 1st unit when surgery came for patient. They completed 1st unit in the OR and started the 2nd unit while there as well. 2nd unit was completed by myself upon returning to his room. 2 hour post hh has been ordered. Pt is currently resting in bed w/his eyes closed.
[2021-03-15 19:28] LABS: Hematocrit 28.8 % (42.0-52.0)
[2021-03-15 19:39] LABS: Hemoglobin 9.4 g/dL (14.1-18.0)
[2021-03-15 20:26] LABS: Bacteria,Urine/Cath 1+ /lpf; RBC,Urine/Cath Occasional # /hpf (0-3)
[2021-03-15 21:54] LABS: POC Glucose,Bedside 173 (70-110)
[2021-03-16] VITALS (10 sets, daily range): BP systolic 99–113; BP diastolic 55–68; PULSE 80–109; RESP 19–24; TEMP 36.4–37.2; O2SAT 93–96; BMI 37.0
--- NOTE | 2021-03-16 04:48 | PC.NURSE ---
Pt is A&O x4. C/O disccomfort to back x1 this shift. Has tolerated RLE. DSG to RLE is C/D/I. Ice pack applied at intervals. Heel floated on pillow. VSS. Pt noted to have scattered wheezing this am. Denies any soa at this time. Pt remains on 2L O2 NC. Has been taking O2 off. Education given. No other concerns. Will continue to monitor.
--- NOTE | 2021-03-16 05:13 | PC.NURSE ---
Patient had only 1 pillow, 1 sheet and 1 brown blanket when weighed; patient's nurse aware.
[2021-03-16 06:17] LABS: POC Glucose,Bedside 177 (70-110)
--- NOTE | 2021-03-16 06:43 | PC.NURSE ---
Pt c/o soa. Pt was noted to have O2 off again. Pt was educated again on keeping O2 on. O2 sat was 88%. O2 was placed back on and titrated to 3L. Pt noted to have audible expiratory wheezing. notified. New orders received. Margarito x1 now.
[2021-03-16 07:20] LABS: Basophils % 0.2 % (0.1-2.0); Eosinophils # 0.2 K/mm3 (0.0-0.4); Eosinophils % 2.3 % (0.1-12.0); Hematocrit 30.8 % (42.0-52.0); Hemoglobin 9.9 g/dL (14.1-18.0); Lymphocytes % 12.7 % (10-50); Mean Corpuscular HGB Conc 32.2 g/dL (31.8-35.4); Mean Corpuscular Hemoglobin 31.9 pg (27.0-31.2); Mean Corpuscular Volume 99.2 fl (80-94); Mean Platelet Volume 9.8 fl (7.4-10.4); Monocytes # 0.6 K/mm3 (0.1-1.0); Monocytes % 7.7 % (1.7-9.3); Neutrophils # 5.8 K/mm3 (1.8-7.8); Neutrophils % 77.1 % (37.0-80.0); Platelet Count 75 K/mm3 (142-424); Red Blood Count 3.11 M/mm3 (4.60-6.20); Red Cell Distribution Width 17.8 % (11.5-17.5); White Blood Count 7.5 K/mm3 (4.8-10.8)
--- NOTE | 2021-03-16 07:28 | HMH.ACPN2 ---
Internal Medicine - PN: Subj *Date: 03/16/21 *Time: 07:51 Interval history: Patient began feeling short of breath earlier this morning. Nursing staff found him with oxygen removed. Patient's O2 sats were in the high 80s. With application of nasal cannula O2 sats of increased. Patient was wheezing and was given a DuoNeb. Patient underwent I&D yesterday of his right diabetic foot infection with gangrene. Cardiology has been consulted by the podiatry service for potential runoff angiogram of the right lower extremity due to his severe PAD. Exam Vital signs and Labs for Last 24 Hours: Temp Pulse Resp BP Pulse Ox 98.6 F 99 H 20 108/60 L 95 03/16/21 04:00 03/16/21 06:36 03/16/21 04:00 03/16/21 04:00 03/16/21 06:36 Laboratory Results - last 24 hr 03/14/21 13:57: Blood Type A Negative, Antibody Screen Negative, Crossmatch (AHG) See Detail 03/15/21 06:39: ESR > 140 H 03/15/21 06:39: C-Reactive Protein 308.3 H 03/15/21 10:51: POC Glucose 184 H 03/15/21 14:55: Urine Color Yellow, Urine Appearance Clear, Urine pH 5.0, Ur Specific Moyers 1.025, Urine Protein Negative, Urine Glucose (UA) Negative, Urine Ketones Trace, Urine Blood Negative, Urine Nitrate Negative, Urine Bilirubin Negative, Urine Urobilinogen 0.2, Ur Leukocyte Esterase Negative, Urine RBC Occasional, Urine WBC 3-5, Ur Squamous Epith Cells None, Urine Bacteria 1+ 03/15/21 15:44: POC Glucose 153 H 03/15/21 19:17: Hgb 9.4 L D, Hct 28.8 L 03/15/21 21:48: POC Glucose 173 H 03/16/21 06:06: POC Glucose 177 H Laboratory Results - last 24 hr 03/14/21 13:57: Blood Type A Negative, Antibody Screen Negative, Crossmatch (AHG) See Detail 03/15/21 10:51: POC Glucose 184 H 03/15/21 14:55: Urine Color Yellow, Urine Appearance Clear, Urine pH 5.0, Ur Specific Moyers 1.025, Urine Protein Negative, Urine Glucose (UA) Negative, Urine Ketones Trace, Urine Blood Negative, Urine Nitrate Negative, Urine Bilirubin Negative, Urine Urobilinogen 0.2, Ur Leukocyte Esterase Negative, Urine RBC Occasional, Urine WBC 3-5, Ur Squamous Epith Cells None, Urine Bacteria 1+ 03/15/21 15:44: POC Glucose 153 H 03/15/21 19:17: Hgb 9.4 L D, Hct 28.8 L 03/15/21 21:48: POC Glucose 173 H 03/16/21 06:06: POC Glucose 177 H 03/16/21 06:32: WBC 7.5, RBC 3.11 L D, Hgb 9.9 L, Hct 30.8 L, MCV 99.2 H, MCH 31.9 H, MCHC 32.2, RDW 17.8 H, Plt Count 75 L D, MPV 9.8, Neut % (Auto) 77.1, Lymph % (Auto) 12.7, Mccreary % (Auto) 7.7, Eos % (Auto) 2.3, Baso % (Auto) 0.2, Neut # (Auto) 5.8, Lymph # (Auto) 1.0, Mccreary # (Auto) 0.6, Eos # (Auto) 0.2, Baso # (Auto) 0.0 03/16/21 06:32: Sodium 131 L, Potassium 4.2, Chloride 97 L, Carbon Dioxide 22, Anion Gap 16.2 H, BUN 56 H, Creatinine 2.40 H, Estimated Creat Clear 45, Estimated GFR 27 L, Est GFR ( Amer) 32 L D, Glucose 153 H D, Calcium 7.9 L I & O for Last 24 hours: Intake & Output 03/13/21 03/14/21 03/15/21 03/16/21 11:59 11:59 11:59 11:59 Intake Total 240 / 240 3051 / 3051 2664 / 2664 Output Total 600 / 600 Balance 240 / 240 3051 / 3051 2063 / 2064 Weight 247 lb 1 oz 258 lb 4 oz 265 lb Microbiology Reports for the Last 24 Hours: Microbiology 03/15/21 15:00 Foot,Right - Wound Gram Stain - Final 03/13/21 15:25 Foot,Right - Drainage Gram Stain - Final 03/13/21 15:25 Foot,Right - Drainage Wound Culture - Preliminary NO GROWTH AFTER 48 HOURS 03/13/21 15:15 Blood Blood Culture - Preliminary NO GROWTH AFTER 48 HOURS 03/13/21 15:15 Blood Blood Culture - Preliminary NO GROWTH AFTER 48 HOURS 03/15/21 08:00 Foot,Right - Drainage Gram Stain - Final Narrative: Patient has audible wheezing heard at bedside. He is conversant. Lungs are distant with wheezes heard in the right upper lobe and right lower lobe. Slight prolongation of expiration. Heart has a regular rate and rhythm. Abdomen is obese. Right foot is still very tender to touch. Echocardiogr
[2021-03-16 07:37] LABS: Chloride 97 mmol/L (98-107); Potassium 4.2 mmoL/L (3.5-5.1); Sodium 131 mmol/L (136-145)
[2021-03-16 07:40] LABS: Anion Gap 16.2 mEq/L (5-15); Blood Urea Nitrogen 56 mg/dl (9-20); Calcium 7.9 mg/dl (8.4-10.2); Carbon Dioxide 22 mmol/L (22.0-30.0); Creatinine Clearance Estimated 45 mL/min (50-200); Estimated Glomerular Filt Rate 27 ml/min (>60); GFR (African American) 32 ML/MIN (>60); Glucose 153 mg/dl (74-100)
[2021-03-16 08:08] LABS: C-Reactive Protein 338.8 mg/L (0-4)
--- NOTE | 2021-03-16 08:10 | HMH.ORTHPN ---
Subjective Date: 03/16/21 <Dejah Cameron - 03/16/21 08:23> Time: 08:11 <Dejah Cameron - 03/16/21 08:23> Principal diagnosis: Right foot gas gangrene s/p I&D <Dejah Cameron - 03/16/21 08:23> Interval history: Patient is looking much better this morning sitting up in the bed this color is improved and definitely spirits is lifted. Patient still states the foot is very tender to touch. The dressings were changed this morning. Patient has 3 incisions on the dorsal foot 1 medial side and 2 plantar. The packing was removed and the sites were flushed with a Betadine saline flush mix. Patient tolerated the flushing well. There was no drainage from any of the sites after flushing. The toes are still dusky as well as the dorsal foot the second toe is starting to get darker and crispy are on the distal tip. The plantar surface of the foot is color is very pale and dusky foot is very cool to touch. Still unable to palpate DP/PT pedal pulses on the right foot. The left foot has palpable DP and PT pulses. There is no edema to the foot. The sites were redressed with half-inch Betadine soaked packing and covered with Betadine soaked 4 x 4 gauze, dry 4 x 4 Curlex and Roc wrap lightly to avoid any tight compression. We discussed with the patient that again this morning that depending on if cardiology can do a successful runoff and get more blood flow to the foot is possible for amputation. The patient verbalizes understanding. <Dejah Cameron - 03/16/21 08:23> PN: Obj Ex Vital signs: Temp Pulse Resp BP Pulse Ox 97.8 F 90 24 108/63 L 95 03/16/21 11:53 03/16/21 11:53 03/16/21 11:53 03/16/21 11:53 03/16/21 11:53 <SherlynMeryl - 03/16/21 13:29> Temp Pulse Resp BP Pulse Ox 98.6 F 99 H 20 108/60 L 95 03/16/21 04:00 03/16/21 06:36 03/16/21 04:00 03/16/21 04:00 03/16/21 06:36 <Dejah Cameron 03/16/21 08:23> - Constitutional no acute distress <Dejah Cameron 03/16/21 08:27> - Routine HEENT Exam Head: Present: normocephalic <Dejah Cameron 03/16/21 08:27> Eye: Present: EOMI <Dejah Cameron 03/16/21 08:27> ENT: Present: mucous membranes moist <Dejah Cameron 03/16/21 08:27> - Routine Neck Exam Present: trachea midline <Dejah Cameron 03/16/21 08:27> - Routine Respiratory Exam Absent: respiratory distress <Dejah Cameron 03/16/21 08:27> - Routine Cardiovascular Exam Present: RRR <Dejah Cameron 03/16/21 08:27> - Routine Abdominal Exam Present: soft <Dejah Cameron 03/16/21 08:27> - Routine Extremities Exam Present: tenderness. Absent: pulses intact (Left DP/PT pedal pulses palpable, right DP/PT pedal pulses nonpalpable) <Dejah Cameron 03/16/21 08:27> - Detailed Lower Extremity Exam Top foot image: 1 - Right dorsal foot has 3 incisions that had no drainage this morning the top of the dorsal foot has bright erythema tissue from debridement. There is one medial incision and to plantar incisions. All sites were packed with half-inch packing soaked in Betadine and covered with Betadine soaked 4 x 4, dry 4 x 4, Kerlix and Roc wrap. Color is very pale and dusky on the plantar as well as dorsal foot. Second toe is starting to become very hard and crispy discolored on the distal tip. 2 - Right medial incision <Dejah Cameron 03/16/21 08:27> Bottom foot image: 1 - Right foot 2 plantar incisions. <Dejah Cameron 03/16/21 08:27> - Routine Neurological Exam Present: oriented X3, normal tone, vision grossly intact, hearing grossly intact, normal speech <Dejah Cameron 03/16/21 08:27> - Routine Psychiatric Exam Present: normal affect, cooperative <Dejah Cameron 03/16/21 08:27> - Urinary Catheter Management Coude Cath placed during this visit: n
--- NOTE | 2021-03-16 08:14 | HMH.ANESII ---
[facility] Anesthesia Record Part II Discharge Time: 16:20 Destination: floor PACU nurse assessment reviewed?: Yes Patient Condition:: Good Anesthesia Complications:: None Swallowing reflex intact?: Yes Cyanosis?: No Blood Pressure: 102/55 Pulse Rate: 85 Temperature: 99.0 F Mental Status: Alert & Oriented Pain level:: 0 Nausea and/or vomitting:: None Intake, IV Amount: 1,000
--- NOTE | 2021-03-16 08:19 | HMH.PNCARD ---
Subjective Date: 03/16/21 Time: 08:00 Principal diagnosis: Right foot gas gangrene s/p I&D and PAD Interval history: 76-year-old male admitted to [facility] with right foot gangrene and PAD on 03/13/21. Patient presented with increased right foot pain along with increased swelling and discoloration. Patient does have history of PAD. 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 Patient denies chest pain, tightness or pressure. Patient does complain of dyspnea. Patient noted to be on oxygen supplement by nasal cannula. Patient complains of general weakness. Patient does have history of coronary artery disease. History of atrial fibrillation in which he is on Eliquis for anticoagulation. Eliquis is currently being held due to low H&H. Patient did receive 1 to 2 units of packed red blood cells yesterday due to low H&H. Repeat H&H this a.m. on lab results reveal slightly improved. Thrombocytopenia and anemia are stable at this time. This is being managed by PCP. Podiatry is managing right foot pain and gangrene. Patient underwent I&D of the right foot yesterday for gas gangrene. Right foot is noted as bandage with dry and intact. Patient is noted to be hypotensive. ARB and diuretics are currently being held due to renal function. Creatinine level remains elevated. Patient does complain of lower extremity pain. Due to patient being hemodynamically unstable, no cardiac procedure is indicated at this time. Once patient is hemodynamically stable, patient may benefit from an lower extremity runoff to determine severity of PAD and further testing for ischemic heart disease. Echocardiogram was performed yesterday. Echocardiogram reveals left ventricle is dilated, there is severe reduced left ventricular systolic function, EF 30 to 35% with multiple segmental wall motion abnormalities. There is no left ventricular thrombosis seen. There is thickening and calcified aortic valve. There seems to be moderate to severe aortic stenosis. There is no significant aortic insufficiency noted. Moderate mitral and mild tricuspid regurgitation noted. No significant pericardial effusion noted. JOHN was also obtained. JOHN revealed diminished pulses bilaterally along with diminished waveforms bilaterally. Moderate bilateral arterial disease noted. Patient states it has been 2 to 3 years since last heart catheterization in [place]. JOHN:Conclusion RT JOHN=0.68 LT JOHN=0.76 RT TBI=unobtainable LT TBI=unobtainable Diminished pulses bilaterally Diminished waveforms bilterally Moderate bilateral arterial disease Multiple attempts made to obtain toe waveforms for TBI. No waveform detected. Echo:Conclusion 1. Technically difficult study because of the patient factors and poor acoustic windows, Definity contrast was utilized to delineate the endocardial surfaces. Left ventricle is dilated, there is severe reduced left ventricular systolic function, visually estimated ejection fraction 30 to 35% with multiple segmental wall motion abnormalities described above, there is no left ventricular thrombus seen. Diastolic parameters are inconclusive. 2. Thickened and calcified aortic valve the valve area is 1.5 cm???, morphologically there appears to be moderate to severe aortic stenosis, there is no significant aortic insufficiency. 3. Moderate mitral and mild tricuspid regurgitation, calculated right ventricular systolic pressure of 52 mmHg. 4. No significant pericardial effusion noted. 5. Inferior vena cava is poorly visualized. Discussed plan of care with Dr. Reyes. Orders and recommendations were received from Dr. Reyes. We will continue to monitor patient's status. Once patient is hemodynamically stable, we may then proceed with lower extremity runoff due to PAD and abnormal ABIs. Patient will need further cardiac testing
[2021-03-16 09:06] LABS: Erythrocyte Sedimentation Rate > 140 mm/hr (0-20)
[2021-03-16 11:32] LABS: POC Glucose,Bedside 176 (70-110)
[2021-03-16 16:54] LABS: POC Glucose,Bedside 129 (70-110)
[2021-03-16 21:13] LABS: POC Glucose,Bedside 111 (70-110)
[2021-03-17] VITALS (10 sets, daily range): BP systolic 102–126; BP diastolic 62–73; PULSE 85–106; RESP 16–22; TEMP 36.3–37.1; O2SAT 93–98; BMI 37.0
--- NOTE | 2021-03-17 05:17 | PC.NURSE ---
Pt had uneventful night. He had no c/o of SOA or pain t/o shift. Has remained on 2 L nasal canula with sats remaining above 92%. Dressing to right foot clean, dry and intact. Jack cath in placed draining clear yellow urine. Call dent within reach will continue to monitor.
[2021-03-17 05:19] LABS: POC Glucose,Bedside 121 (70-110)
[2021-03-17 06:36] LABS: Basophils % 0.2 % (0.1-2.0); Eosinophils # 0.2 K/mm3 (0.0-0.4); Eosinophils % 2.6 % (0.1-12.0); Hematocrit 29.1 % (42.0-52.0); Hemoglobin 9.1 g/dL (14.1-18.0); Lymphocytes # 0.7 K/mm3 (0.7-4.5); Lymphocytes % 8.9 % (10-50); Mean Corpuscular HGB Conc 31.2 g/dL (31.8-35.4); Mean Corpuscular Volume 99.3 fl (80-94); Mean Platelet Volume 10.1 fl (7.4-10.4); Monocytes # 0.3 K/mm3 (0.1-1.0); Neutrophils # 6.5 K/mm3 (1.8-7.8); Neutrophils % 84.5 % (37.0-80.0); Platelet Count 77 K/mm3 (142-424); Red Blood Count 2.93 M/mm3 (4.60-6.20); Red Cell Distribution Width 17.4 % (11.5-17.5); White Blood Count 7.7 K/mm3 (4.8-10.8)
[2021-03-17 07:11] LABS: Chloride 97 mmol/L (98-107); Sodium 130 mmol/L (136-145)
[2021-03-17 07:12] LABS: Potassium 4.1 mmoL/L (3.5-5.1)
[2021-03-17 07:14] LABS: Blood Urea Nitrogen 52 mg/dl (9-20); Creatinine Clearance Estimated 60 mL/min (50-200); Estimated Glomerular Filt Rate 37 ml/min (>60); GFR (African American) 45 ML/MIN (>60)
[2021-03-17 07:15] LABS: Anion Gap 13.1 mEq/L (5-15); Carbon Dioxide 24 mmol/L (22.0-30.0); Glucose 113 mg/dl (74-100)
[2021-03-17 07:20] LABS: C-Reactive Protein 301.5 mg/L (0-4)
[2021-03-17 07:22] LABS: Erythrocyte Sedimentation Rate 78 mm/hr (0-20)
--- NOTE | 2021-03-17 07:32 | HMH.ACPN2 ---
Internal Medicine - PN: Subj *Date: 03/17/21 *Time: 07:32 Interval history: Patient reports continued dyspnea and pain in the right lower leg and foot Exam Vital signs and Labs for Last 24 Hours: Temp Pulse Resp BP Pulse Ox 97.9 F 102 H 20 119/66 97 03/17/21 04:00 03/17/21 06:00 03/17/21 04:00 03/17/21 04:00 03/17/21 06:00 Laboratory Results - last 24 hr 03/16/21 06:32: C-Reactive Protein 338.8 H 03/16/21 06:32: Sodium 131 L, Potassium 4.2, Chloride 97 L, Carbon Dioxide 22, Anion Gap 16.2 H, BUN 56 H, Creatinine 2.40 H, Estimated Creat Clear 45, Estimated GFR 27 L, Est GFR ( Amer) 32 L D, Glucose 153 H D, Calcium 7.9 L 03/16/21 08:13: ESR > 140 H 03/16/21 11:25: POC Glucose 176 H 03/16/21 16:37: POC Glucose 129 H 03/16/21 20:51: POC Glucose 111 H 03/17/21 05:12: POC Glucose 121 H 03/17/21 06:03: ESR 78 H 03/17/21 06:03: C-Reactive Protein 301.5 H 03/17/21 06:03: WBC 7.7, RBC 2.93 L, Hgb 9.1 L, Hct 29.1 L, MCV 99.3 H, MCH 31.0, MCHC 31.2 L, RDW 17.4, Plt Count 77 L, MPV 10.1, Neut % (Auto) 84.5 H, Lymph % (Auto) 8.9 L, Wright % (Auto) 4.0, Eos % (Auto) 2.6, Baso % (Auto) 0.2, Neut # (Auto) 6.5, Lymph # (Auto) 0.7, Wright # (Auto) 0.3, Eos # (Auto) 0.2, Baso # (Auto) 0.0 03/17/21 06:03: Sodium 130 L, Potassium 4.1, Chloride 97 L, Carbon Dioxide 24, Anion Gap 13.1, BUN 52 H, Creatinine 1.80 H D, Estimated Creat Clear 60, Estimated GFR 37 L, Est GFR ( Amer) 45 L D, Glucose 113 H D, Calcium 8.0 L I & O for Last 24 hours: Intake & Output 03/14/21 03/15/21 03/16/21 03/17/21 11:59 11:59 11:59 11:59 Intake Total 240 / 240 3051 / 3051 5204 / 5204 180 / 180 Output Total 600 / 600 1250 / 1250 Balance 240 / 240 3051 / 3051 4604 / 4604 -1070 / -1070 Weight 247 lb 1 oz 258 lb 4 oz 265 lb 264 lb 5 oz Microbiology Reports for the Last 24 Hours: Microbiology 03/15/21 15:00 Foot,Right - Wound Gram Stain - Final 03/15/21 15:00 Foot,Right - Wound Wound Culture - Preliminary NO GROWTH AFTER 24 HOURS 03/13/21 15:25 Foot,Right - Drainage Gram Stain - Final 03/13/21 15:25 Foot,Right - Drainage Wound Culture - Preliminary 03/15/21 08:00 Foot,Right - Drainage Gram Stain - Final 03/15/21 08:00 Foot,Right - Drainage Wound Culture - Preliminary NO GROWTH AFTER 24 HOURS - Constitutional no acute distress - *Routine Respiratory Exam Present: decreased breath sounds, rales - *Routine Cardiovascular Exam Present: tachycardia, irregularly irregular - *Routine Abdominal Exam Present: soft, normoactive bowel sounds. Absent: tenderness Assessment and Plan (1) Gangrene of right foot Status: Acute Category: Medical Code(s): I96 - Gangrene, not elsewhere classified (2) Type 2 diabetes mellitus with hyperglycemia Status: Acute Category: Medical Code(s): E11.65 - Type 2 diabetes mellitus with hyperglycemia (3) Diabetes mellitus, with long-term current use of insulin Status: Acute Category: Medical Code(s): E11.9 - Type 2 diabetes mellitus without complications; Z79.4 - USP (current) use of insulin (4) Peripheral arterial disease Status: Acute Category: Medical Code(s): I73.9 - Peripheral vascular disease, unspecified (5) Diabetic peripheral neuropathy Status: Acute Category: Medical Code(s): E11.42 - Type 2 diabetes mellitus with diabetic polyneuropathy (6) Coronary artery disease Status: Acute Category: Medical Code(s): I25.10 - Atherosclerotic heart disease of [place] coronary artery without angina pectoris (7) Atrial fibrillation Status: Acute Category: Medical Code(s): I48.91 - Unspecified atrial fibrillation (8) Obesity Status: Acute Category: Medical Code(s): E66.9 - Obesity, unspecified (9) Thrombocytopenia Status: Acute Category: Medical Code(s): D69.6 - Thrombocytopenia, unspecified (10) Anemia Status: Acute Category: Medical Code(s): D64.9 - A
--- NOTE | 2021-03-17 08:06 | HMH.PNCARD ---
Subjective Date: 03/17/21 Time: 08:00 Principal diagnosis: Right foot gas gangrene s/p I&D Interval history: 76-year-old male admitted to with right foot gangrene and PAD on 03/13/21. Patient continues to complain of right foot pain. Right foot noted with dressing dry and intact. Patient underwent I&D of the right foot on 03/15/21 for gas gangrene. Podiatry managing right foot care. Patient does have history of PAD. Patient denies chest pain, tightness or pressure. Patient does complain of dyspnea. Patient noted to be on oxygen supplement by nasal cannula. Patient complains of general weakness. History of atrial fibrillation in which he is on Eliquis for anticoagulation. Eliquis is currently being held due to thrombocytopenia and anemia. Thrombocytopenia and anemia have improved since admission. Platelet count is noted as low at 77. This is being managed by PCP. Patient remains to be hypotensive, but BP is rebounding. ARB and diuretics are currently being held due to renal function. Creatinine level remains elevated but improving. Creatinine 1.80. severity of PAD and further testing for ischemic heart disease. Echocardiogram reveals left ventricle is dilated, there is severe reduced left ventricular systolic function, EF 30 to 35% with multiple segmental wall motion abnormalities. There is no left ventricular thrombosis seen. There is thickening and calcified aortic valve. There seems to be moderate to severe aortic stenosis. There is no significant aortic insufficiency noted. Moderate mitral and mild tricuspid regurgitation noted. No significant pericardial effusion noted. Patient is currently not a candidate for LifeVest for ischemic cardiomyopathy due to patient's habitus and debility. JOHN revealed diminished pulses bilaterally along with diminished waveforms bilaterally. Moderate bilateral arterial disease noted. Due to patient's hemodynamic instability, would recommend patient to be transferred to the vascular surgeon for his severe PAD and ischemic cardiomyopathy. Patient does wish to be seen by his own cardiologists (Dr. Flower and Dr. Henry) for any cardiac procedures. Discussed with patient regarding ischemic cardiomyopathy. Uncertain as to what his previous EF was prior to this hospital event. 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 Patient was scheduled to see vascular surgeon for evaluation for his PAD prior to this hospital admission. Due to patient being in the hospital, the vascular surgeon consult was canceled. Patient will benefit to have vascular surgeon review patient's JOHN and previous lower extremity runoff images and determine the severity of PAD. Spoke with Dr. Zimmerman regarding this. Dr. Zimmerman is going to contact patient's scrap metal processing worker and then determine if patient will meet transfer criteria to their facility for further evaluation. Also spoke with podiatry CLINICAL INSTRUCTOR regarding current situation. Podiatry CLINICAL INSTRUCTOR states that she will speak with Dr. Plata (podiatry). Please notify cardiology of any changes in patient status. Thank you for allowing cardiology to participate in the care of this patient. Exam Vital signs and Labs for Last 24 Hours: Temp Pulse Resp BP Pulse Ox 97.9 F 102 H 20 119/66 97 03/17/21 04:00 03/17/21 06:00 03/17/21 04:00 03/17/21 04:00 03/17/21 06:00 Laboratory Results - last 24 hr 03/16/21 06:32: C-Reactive Protein 338.8 H 03/16/21 08:13: ESR > 140 H 03/16/21 11:25: POC Glucose 176 H 03/16/21 16:37: POC Glucose 129 H 03/16/21 20:51: POC Glucose 111 H 03/17/21 05:12: POC Glucose 121 H 03/17/21 06:03: ESR 78 H 03/17/21 06:03: C-Reactive Protein 301.5 H 03/17/21 06:03: WBC 7.7, RBC 2.93 L, Hgb 9.1 L, Hct 29.1 L, MCV 99.3 H, MCH 31.0, MCHC 31.2 L, RDW 17.4, Plt Count 77 L, MPV 10.1, Neut % (Auto) 84.5 H, Lymph % (Auto) 8.9
--- NOTE | 2021-03-17 08:20 | HMH.ORTHPN ---
Subjective Date: 03/17/21 Time: 07:50 Principal diagnosis: Right foot gas gangrene s/p I&D Interval history: Patient resting in bed this morning. Patient's color looks a little better this morning and he states he still having quite a bit of pain in his foot. I will proceed with dressing changes morning cardiology Doris Bryant APRN was rounding at the bedside with the patient. Discussing possibility if his labs are still improving they may be able to do a procedure on his lower extremity to improve blood flow. I discussed with the patient this morning that the color still does not look very good to the foot and the second toe has become even more dark and hardened to the distal tip. The foot was again flushed with a Betadine flush, there was no drainage from either of the sites. The hallux, plantar foot and dorsal foot is still very dusky and purplish in color. I discussed with the patient still the possibility of amputation of the left foot. Patient verbalized understanding. PN: Obj Ex Vital signs: Temp Pulse Resp BP Pulse Ox 97.9 F 102 H 20 119/66 97 03/17/21 04:00 03/17/21 06:00 03/17/21 04:00 03/17/21 04:00 03/17/21 06:00 - Constitutional no acute distress - Routine HEENT Exam Head: Present: normocephalic Eye: Present: EOMI ENT: Present: mucous membranes moist - Routine Neck Exam Present: trachea midline - Routine Respiratory Exam Absent: respiratory distress - Routine Cardiovascular Exam Present: RRR - Routine Extremities Exam Absent: pulses intact (Absent: pulses intact (Left DP/PT pedal pulses palpable, right DP/PT pedal pulses nonpalpable) ) - Detailed Lower Extremity Exam Top foot image: 1 - Right dorsal foot has 3 incisions that had no drainage this morning the top of the dorsal foot has bright erythema tissue from debridement. There is one medial incision and to plantar incisions. All sites were packed with half-inch packing soaked in Betadine and covered with Betadine soaked 4 x 4, dry 4 x 4, Kerlix and Roc wrap. Color is very pale and dusky on the plantar as well as dorsal foot. Second toe is starting to become very hard and crispy discolored on the distal tip. 2 - Right medial incision Bottom foot image: 1 - Right foot 2 plantar incisions. - Routine Skin Exam Present: wounds (S/P right foot incision and drainage, right foot debridement) - Routine Neurological Exam Present: oriented X3, moving all extremities, vision grossly intact, hearing grossly intact, normal speech - Routine Psychiatric Exam Present: normal affect, cooperative - Urinary Catheter Management Coude Cath placed during this visit: no Progress Note: A&P (1) Gangrene of right foot Status: Acute (2) Type 2 diabetes mellitus with hyperglycemia Status: Acute (3) Diabetes mellitus, with long-term current use of insulin Status: Acute (4) Peripheral arterial disease Status: Acute (5) Diabetic peripheral neuropathy Status: Acute (6) Coronary artery disease Status: Acute (7) Atrial fibrillation Status: Acute (8) Obesity Status: Acute (9) Thrombocytopenia Status: Acute (10) Anemia Status: Acute (11) Gas gangrene Status: Acute (12) Diabetic infection of right foot Status: Acute (13) Acute systolic (congestive) heart failure Status: Acute (14) Moderate aortic stenosis Status: Acute Assessment and Plan for All Diagnoses:: S/P 03/15/2021 , right foot incision and drainage, right foot debridement POD#2 Laboratory Tests 03/17/21 03/17/21 03/17/21 06:03 06:03 06:03 WBC 7.7 Hgb 9.1 L Hct 29.1 L Plt Count 77 L ESR 78 H BUN Creatinine Estimated GFR Glucose C-Reactive Protein 301.5 H 03/17/21 06:03 WBC Hgb Hct Plt Count ESR BUN 52 H
[2021-03-17 11:37] LABS: POC Glucose,Bedside 160 (70-110)
--- NOTE | 2021-03-17 13:56 | DIET.NUTRFU ---
Addendum entered by Belen Cardenas 03/19/21 14:31: PO intakes 75% and pt's has been bringing in food at times as well. BG moderate avg. 150. Weight stable. Original Note: PO intakes 25-50%, weight stable, BG moderate avg. 150. Pt states he has not felt much like eating, denied offer for nutritional supplementation. Will continue to monitor and offer options for increasing intakes as indicated.
--- NOTE | 2021-03-17 14:42 | PC.NURSE ---
PT IS RESTING IN BED. NO COMPLAINTS OF DISCOMFORT. ALERT AND ORIENTED X4. LUNG SOUNDS DIMINISHED WITH BILATERAL CRACKLES. ABDOMEN/NON TENDER. PT IS A 2 ASSIST TO GET OOB. 1 BOWEL MOVEMENT THIS SHIFT. DRESSING NOTED TO THE RT FOOT. POOR APPETITE. VSS. WILL CONTINUE TO MONITOR.
[2021-03-17 16:23] LABS: POC Glucose,Bedside 157 (70-110)
[2021-03-17 21:51] LABS: POC Glucose,Bedside 158 (70-110)
[2021-03-18] VITALS (10 sets, daily range): BP systolic 111–133; BP diastolic 61–73; PULSE 81–129; RESP 16–20; TEMP 36.4–36.8; O2SAT 2–98; BMI 37.0
--- NOTE | 2021-03-18 03:18 | PC.NURSE ---
No acute changes this shift. Pt remains on 2L NC with O2 saturation 97-98%. Pt c/o of pain in right foot x2 this shift, admin meds per MAR with relief. Jack in place draining clear, yellow urine. VSS, call light within reach, will continue to monitor.
[2021-03-18 05:37] LABS: POC Glucose,Bedside 116 (70-110)
[2021-03-18 06:17] LABS: Basophils % 0.3 % (0.1-2.0); Eosinophils # 0.3 K/mm3 (0.0-0.4); Eosinophils % 5.6 % (0.1-12.0); Hematocrit 30.6 % (42.0-52.0); Hemoglobin 9.4 g/dL (14.1-18.0); Lymphocytes # 0.6 K/mm3 (0.7-4.5); Lymphocytes % 10.9 % (10-50); Mean Corpuscular HGB Conc 30.8 g/dL (31.8-35.4); Mean Corpuscular Hemoglobin 31.2 pg (27.0-31.2); Mean Corpuscular Volume 101.2 fl (80-94); Mean Platelet Volume 10.1 fl (7.4-10.4); Monocytes # 0.3 K/mm3 (0.1-1.0); Monocytes % 5.9 % (1.7-9.3); Neutrophils # 4.5 K/mm3 (1.8-7.8); Neutrophils % 77.3 % (37.0-80.0); Platelet Count 81 K/mm3 (142-424); Red Blood Count 3.03 M/mm3 (4.60-6.20); Red Cell Distribution Width 17.3 % (11.5-17.5); White Blood Count 5.8 K/mm3 (4.8-10.8)
[2021-03-18 06:53] LABS: Erythrocyte Sedimentation Rate > 140 mm/hr (0-20)
--- NOTE | 2021-03-18 07:38 | HMH.ACPN2 ---
Internal Medicine - PN: Subj *Date: 03/18/21 *Time: 07:38 Interval history: Patient is without complaints. He is breathing easier. Attempts were made to reach Dr. Hill yesterday regarding angiogram from August of this year and I am still awaiting his return call. Exam Vital signs and Labs for Last 24 Hours: Temp Pulse Resp BP Pulse Ox 97.8 F 84 20 111/62 98 03/18/21 04:00 03/18/21 04:00 03/18/21 04:00 03/18/21 04:00 03/18/21 04:00 Laboratory Results - last 24 hr 03/17/21 11:24: POC Glucose 160 H 03/17/21 15:20: POC Glucose 157 H 03/17/21 19:59: POC Glucose 158 H 03/18/21 05:31: POC Glucose 116 H 03/18/21 05:44: ESR > 140 H 03/18/21 05:44: WBC 5.8, RBC 3.03 L, Hgb 9.4 L, Hct 30.6 L, MCV 101.2 H, MCH 31.2, MCHC 30.8 L, RDW 17.3, Plt Count 81 L, MPV 10.1, Neut % (Auto) 77.3, Lymph % (Auto) 10.9, [place] % (Auto) 5.9, Eos % (Auto) 5.6, Baso % (Auto) 0.3, Neut # (Auto) 4.5, Lymph # (Auto) 0.6 L, [place] # (Auto) 0.3, Eos # (Auto) 0.3, Baso # (Auto) 0.0 I & O for Last 24 hours: Intake & Output 03/15/21 03/16/21 03/17/21 03/18/21 11:59 11:59 11:59 11:59 Intake Total 3051 / 3051 5204 / 5204 420 / 420 720 / 720 Output Total 600 / 600 1950 / 1950 1100 / 1100 Balance 3051 / 3051 4604 / 4604 -1530 / -1530 -380 / -380 Weight 258 lb 4 oz 265 lb 264 lb 5 oz 264 lb 5 oz Microbiology Reports for the Last 24 Hours: Microbiology 03/13/21 15:25 Foot,Right - Drainage Gram Stain - Final 03/13/21 15:25 Foot,Right - Drainage Wound Culture - Preliminary Staphylococcus schleiferi 03/15/21 15:00 Foot,Right - Final 03/15/21 15:00 Foot,Right - Wound Gram Stain - Final 03/15/21 15:00 Foot,Right - Wound Wound Culture - Preliminary NO GROWTH AFTER 48 HOURS 03/15/21 08:00 Foot,Right - Drainage Gram Stain - Final 03/15/21 08:00 Foot,Right - Drainage Wound Culture - Preliminary NO GROWTH AFTER 48 HOURS - Constitutional no acute distress - *Routine Cardiovascular Exam Present: RRR - *Routine Abdominal Exam Present: soft, normoactive bowel sounds. Absent: tenderness Assessment and Plan (1) Gangrene of right foot Status: Acute Category: Medical Code(s): I96 - Gangrene, not elsewhere classified (2) Type 2 diabetes mellitus with hyperglycemia Status: Acute Category: Medical Code(s): E11.65 - Type 2 diabetes mellitus with hyperglycemia (3) Diabetes mellitus, with long-term current use of insulin Status: Acute Category: Medical Code(s): E11.9 - Type 2 diabetes mellitus without complications; Z79.4 - senior living (current) use of insulin (4) Peripheral arterial disease Status: Acute Category: Medical Code(s): I73.9 - Peripheral vascular disease, unspecified (5) Diabetic peripheral neuropathy Status: Acute Category: Medical Code(s): E11.42 - Type 2 diabetes mellitus with diabetic polyneuropathy (6) Coronary artery disease Status: Acute Category: Medical Code(s): I25.10 - Atherosclerotic heart disease of [place] coronary artery without angina pectoris (7) Atrial fibrillation Status: Acute Category: Medical Code(s): I48.91 - Unspecified atrial fibrillation (8) Obesity Status: Acute Category: Medical Code(s): E66.9 - Obesity, unspecified (9) Thrombocytopenia Status: Acute Category: Medical Code(s): D69.6 - Thrombocytopenia, unspecified (10) Anemia Status: Acute Category: Medical Code(s): D64.9 - Anemia, unspecified (11) Gas gangrene Status: Acute Category: Medical Code(s): A48.0 - Gas gangrene (12) Diabetic infection of right foot Status: Acute Category: Medical Code(s): E11.628 - Type 2 diabetes mellitus with other skin complications; L08.9 - Local infection of the skin and subcutaneous tissue, unspecified (13) Acute systolic (congestive) heart failure Status: Acute Category: Medical Code(s): I50.21 - Acute systolic (c
[2021-03-18 07:56] LABS: C-Reactive Protein 285.9 mg/L (0-4)
[2021-03-18 08:35] LABS: Chloride 98 mmol/L (98-107); Potassium 3.8 mmoL/L (3.5-5.1); Sodium 132 mmol/L (136-145)
[2021-03-18 08:38] LABS: Anion Gap 12.8 mEq/L (5-15); Blood Urea Nitrogen 46 mg/dl (9-20); Calcium 7.9 mg/dl (8.4-10.2); Carbon Dioxide 25 mmol/L (22.0-30.0); Creatinine Clearance Estimated 83 mL/min (50-200); Estimated Glomerular Filt Rate 54 ml/min (>60); GFR (African American) 65 ML/MIN (>60); Glucose 101 mg/dl (74-100)
--- NOTE | 2021-03-18 09:35 | HMH.ORTHPN ---
Subjective Date: 03/18/21 <Dejah Cameron - 03/18/21 09:53> Time: 08:00 <Dejah Cameron - 03/18/21 09:53> Principal diagnosis: Right foot gas gangrene s/p I&D <Dejah Cameron - 03/18/21 09:53> Interval history: Patient doing very well this morning still having a lot of pain with his right foot. is at bedside patient completed breakfast. Discussed with patient again this morning that after talking with our cardiology team they feel it is necessary that patient will need to see a vascular surgeon at [facility]. Dr. Zimmerman is still working diligently trying to discuss patient's care with Dr. Hill and develop a plan of care for the patient. For now we will change dressing at bedside. Discussed with the patient today about the deterioration of the skin and color that he is more than likely going to need below the knee amputation he verbalized understanding. <Dejah Cameron - 03/18/21 09:53> PN: Obj Ex Vital signs: Temp Pulse Resp BP Pulse Ox 97.9 F 92 H 20 121/73 97 03/18/21 07:53 03/18/21 10:00 03/18/21 07:53 03/18/21 07:53 03/18/21 10:00 <Meryl Plata - 03/18/21 12:15> Temp Pulse Resp BP Pulse Ox 97.9 F 129 H 20 121/73 96 03/18/21 07:53 03/18/21 07:53 03/18/21 07:53 03/18/21 07:53 03/18/21 07:53 <Dejah Cameron - 03/18/21 09:53> - Constitutional no acute distress <Dejah Cameron - 03/18/21 10:35> - Routine HEENT Exam Head: Present: normocephalic <Dejah Cameron - 03/18/21 10:35> Eye: Present: EOMI <Dejah Cameron - 03/18/21 10:35> ENT: Present: mucous membranes moist <Dejah Cameron - 03/18/21 10:35> - Routine Neck Exam Present: trachea midline <Dejah Cameron - 03/18/21 10:35> - Routine Respiratory Exam Absent: respiratory distress <Dejah Cameron - 03/18/21 10:35> - Routine Cardiovascular Exam Present: RRR <Dejah Cameron - 03/18/21 10:35> - Routine Abdominal Exam Present: soft <Dejah Cameron - 03/18/21 10:35> - Detailed Lower Extremity Exam Top foot image: 1 - Right dorsal foot has 3 incisions that had no drainage this morning the top of the dorsal foot has dark red tissue that is getting very stiff. There is one medial incision and to plantar incisions. All sites were packed with half-inch packing soaked in Betadine and covered with Betadine soaked 4 x 4, dry 4 x 4, Kerlix and Roc wrap. Color is very pale and dusky on the plantar as well as dorsal foot. Second toe is looking mummified and very dark and immobile. 2 - Right medial incision <Dejah Cameron - 03/18/21 10:35> Bottom foot image: 1 - Right foot 2 plantar incisions. <Dejah Cameron - 03/18/21 10:35> - Routine Skin Exam Present: wounds (S/P right foot incision and drainage, right foot debridement) <Dejah Cameron - 03/18/21 10:35> - Routine Neurological Exam Present: oriented X3, moving all extremities, vision grossly intact, hearing grossly intact, normal speech <Dejah Cameron - 03/18/21 10:35> - Routine Psychiatric Exam Present: normal affect, cooperative <Dejah Cameron - 03/18/21 10:35> - Urinary Catheter Management Coude Cath placed during this visit: no <Meryl Plata - 03/18/21 12:15> no <Dejah Cameorn - 03/18/21 10:36> Progress Note: A&P (1) Gangrene of right foot Status: Acute (2) Type 2 diabetes mellitus with hyperglycemia Status: Acute (3) Diabetes mellitus, with long-term current use of insulin Status: Acute (4) Peripheral arterial disease Status: Acute (5) Diabetic peripheral neuropathy Status: Acute (6) Coronary artery disease Status: Acute (7) Atrial fibrillation Status: Acute (8) Obesity Status: Acute (9) Thrombocytopenia Status: Acute (10) Anemia Status: Acute (11) Gas
--- NOTE | 2021-03-18 09:48 | HMH.ACPN ---
Internal Medicine - PN: Subj *Date: 03/18/21 *Time: 09:48 Exam Vital signs and Labs for Last 24 Hours: Temp Pulse Resp BP Pulse Ox 97.9 F 129 H 20 121/73 96 03/18/21 07:53 03/18/21 07:53 03/18/21 07:53 03/18/21 07:53 03/18/21 07:53 Laboratory Results - last 24 hr 03/17/21 11:24: POC Glucose 160 H 03/17/21 15:20: POC Glucose 157 H 03/17/21 19:59: POC Glucose 158 H 03/18/21 05:31: POC Glucose 116 H 03/18/21 05:44: ESR > 140 H 03/18/21 05:44: C-Reactive Protein 285.9 H 03/18/21 05:44: WBC 5.8, RBC 3.03 L, Hgb 9.4 L, Hct 30.6 L, MCV 101.2 H, MCH 31.2, MCHC 30.8 L, RDW 17.3, Plt Count 81 L, MPV 10.1, Neut % (Auto) 77.3, Lymph % (Auto) 10.9, Cloud % (Auto) 5.9, Eos % (Auto) 5.6, Baso % (Auto) 0.3, Neut # (Auto) 4.5, Lymph # (Auto) 0.6 L, Cloud # (Auto) 0.3, Eos # (Auto) 0.3, Baso # (Auto) 0.0 03/18/21 05:44: Sodium 132 L, Potassium 3.8, Chloride 98, Carbon Dioxide 25, Anion Gap 12.8, BUN 46 H, Creatinine 1.30 H D, Estimated Creat Clear 83, Estimated GFR 54 L, Est GFR ( Amer) 65 D, Glucose 101 H, Calcium 7.9 L I & O for Last 24 hours: Intake & Output 03/15/21 03/16/21 03/17/21 03/18/21 23:59 23:59 23:59 23:59 Intake Total 3896 / 3896 2720 / 2720 960 / 960 480 / 480 Output Total 1250 / 1850 1600 / 2400 1200 / 1200 Balance 3896 / 3896 1470 / 870 -640 / -1440 -720 / -720 Weight 117 kg 120.202 kg 119.89 kg 119.89 kg Microbiology Reports for the Last 24 Hours: Microbiology 03/13/21 15:25 Foot,Right - Drainage Gram Stain - Final 03/13/21 15:25 Foot,Right - Drainage Wound Culture - Final Staphylococcus schleiferi 03/15/21 15:00 Foot,Right - Final 03/15/21 15:00 Foot,Right - Wound Gram Stain - Final 03/15/21 15:00 Foot,Right - Wound Wound Culture - Preliminary Gram Positive Cocci 03/15/21 08:00 Foot,Right - Drainage Gram Stain - Final 03/15/21 08:00 Foot,Right - Drainage Wound Culture - Preliminary Gram Positive Cocci Assessment and Plan (1) Gangrene of right foot Status: Acute Category: Medical Code(s): I96 - Gangrene, not elsewhere classified (2) Type 2 diabetes mellitus with hyperglycemia Status: Acute Category: Medical Code(s): E11.65 - Type 2 diabetes mellitus with hyperglycemia (3) Diabetes mellitus, with long-term current use of insulin Status: Acute Category: Medical Code(s): E11.9 - Type 2 diabetes mellitus without complications; Z79.4 - assistant terminal manager (current) use of insulin (4) Peripheral arterial disease Status: Acute Category: Medical Code(s): I73.9 - Peripheral vascular disease, unspecified (5) Diabetic peripheral neuropathy Status: Acute Category: Medical Code(s): E11.42 - Type 2 diabetes mellitus with diabetic polyneuropathy (6) Coronary artery disease Status: Acute Category: Medical Code(s): I25.10 - Atherosclerotic heart disease of [place] coronary artery without angina pectoris (7) Atrial fibrillation Status: Acute Category: Medical Code(s): I48.91 - Unspecified atrial fibrillation (8) Obesity Status: Acute Category: Medical Code(s): E66.9 - Obesity, unspecified (9) Thrombocytopenia Status: Acute Category: Medical Code(s): D69.6 - Thrombocytopenia, unspecified (10) Anemia Status: Acute Category: Medical Code(s): D64.9 - Anemia, unspecified (11) Gas gangrene Status: Acute Category: Medical Code(s): A48.0 - Gas gangrene (12) Diabetic infection of right foot Status: Acute Category: Medical Code(s): E11.628 - Type 2 diabetes mellitus with other skin complications; L08.9 - Local infection of the skin and subcutaneous tissue, unspecified (13) Acute systolic (congestive) heart failure Status: Acute Category: Medical Code(s): I50.21 - Acute systolic (congestive) heart failure (14) Moderate aortic stenosis Status: Acute Category: Medical Code(s): I35.0 - Nonrheumatic aortic (va
--- NOTE | 2021-03-18 11:01 | HMH.PTEV ---
Physical Therapy Evaluation Rehab PT IP Evaluation Start: 03/18/21 08:21 Freq: ONCE Status: Active Protocol: Document 03/18/21 10:22 RAUL (Rec: 03/18/21 11:01 RAUL [id number]) Subjective/History History History This is the initial evaluation for Tae Alvarado. Pt is a 76 y/o male admitted to [facility] for a foot infection. After inspection, the infection was found to be cellulitis. Pt also suffers from PAD and DM. Pt reports he does suffer from Peripheral sensory deficits in his feet. Pt has been in [facility] for about 5 days now and has severe weakness. Pt's was present in room upon arrival. - note done by Tomasa Corado, SPT Subjective Subjective Pt states he was living in a house with his before hospital admission. Pt states he was cutting his toe nail when he saw that he clipped his toe accidently. Pt's reports that within a day or two his foot began to hurt and his tow changed color. Pt reports he did have a walker at home he used occassionally. Pt states it is painful to stand on his foot. Rehab PT IP Eval Objective Appearance Patient Behavior Appropriate,Cooperative, Fatigued Difficulty following instructions none Speech Pattern Clear,Appropriate,Coherent Ambulation Patient Able to Ambulate No Balance Ability to Arise Able, uses arms to help Sitting Balance Steady, safe Standing Balance Steady, wide stance Dynamic Sitting Balance Ability Good Dynamic Standing Balance Ability Fair Transfers Bed Transfer Ability Supervision/Stand by Sit to Stand Bed Transfer Ability Contact Guard/Hand Hold Rehab PT IP prob,goals,plan Problems Date of Evaluation: 03/18/21 PT IP Problems Bed Mobility,Transfers,Gait, Balance,Self care,Safety Rehab Potential Rehab Potential Fair Equipment Needs Assistive Devices Rolling / Wheeled Walker Plan PT Intervention Plan Bed Mobility,Transfers,Gait
--- NOTE | 2021-03-18 16:49 | PC.NURSE ---
PT IS RESTING IN BED. MEDICATED NEEDED FOR DISCOMFORT OF THE RT FOOT. PT STATES HIS PAIN IS GETTING WORSE EACH DAY. PT STATES HE STILL DOES NOT HAVE ANY APPETITE BUT HAS BEEN DRINKING STRAWBERRY GLUCERNA. LUNG SOUNDS DIMINISHED WITH BILATERAL CRACKLES. ABDOMEN SOFT/NON TENDER WITH ACTIVE BOWEL SOUNDS. DRESSING TO THE RT FOOT CHANGED PER PODIATRY THIS MORNING. PT DID PARTICIPATE WITH PHYSICAL THERAPY THIS MORNING BY STANDING WITH WALKER AT THE SOB. PT HAS BEEN A 2 ASSIST TO GET TO [facility] DUE TO DISCOMFORT OF THE RT FOOT. PT HAS BEEN ACCEPTED TO [facility] AND IS ON THE WAITING LIST FOR A BED.
--- NOTE | 2021-03-18 18:35 | PC.NURSE ---
[facility] called for to let us know they still don't have a bed available.
[2021-03-19] VITALS (10 sets, daily range): BP systolic 118–144; BP diastolic 52–77; PULSE 67–97; RESP 16–18; TEMP 36.6–37.1; O2SAT 88–98; BMI 36.3
--- NOTE | 2021-03-19 03:57 | PC.NURSE ---
No acute changes this shift. Pt has c/o of pain X2 in right foot this shift, admin meds per MAR with relief. Jack is draining yellow, clear urine. Pt remains on 2L NC with O2 saturation >90%. VSS, call light within reach, will continue to monitor.
[2021-03-19 06:17] LABS: Basophils % 0.6 % (0.1-2.0); Eosinophils # 0.4 K/mm3 (0.0-0.4); Eosinophils % 7.4 % (0.1-12.0); Hematocrit 31.2 % (42.0-52.0); Hemoglobin 10.1 g/dL (14.1-18.0); Lymphocytes # 0.8 K/mm3 (0.7-4.5); Lymphocytes % 16.6 % (10-50); Mean Corpuscular HGB Conc 32.3 g/dL (31.8-35.4); Mean Corpuscular Hemoglobin 31.9 pg (27.0-31.2); Mean Corpuscular Volume 98.8 fl (80-94); Mean Platelet Volume 9.9 fl (7.4-10.4); Monocytes # 0.3 K/mm3 (0.1-1.0); Monocytes % 6.4 % (1.7-9.3); Neutrophils # 3.4 K/mm3 (1.8-7.8); Platelet Count 87 K/mm3 (142-424); Red Blood Count 3.16 M/mm3 (4.60-6.20); White Blood Count 4.9 K/mm3 (4.8-10.8)
[2021-03-19 06:23] LABS: Chloride 98 mmol/L (98-107); Sodium 132 mmol/L (136-145)
[2021-03-19 06:26] LABS: Blood Urea Nitrogen 37 mg/dl (9-20); Calcium 8.5 mg/dl (8.4-10.2); Carbon Dioxide 27 mmol/L (22.0-30.0); Creatinine Clearance Estimated 89 mL/min (50-200); Estimated Glomerular Filt Rate 59 ml/min (>60); GFR (African American) 71 ML/MIN (>60); Glucose 120 mg/dl (74-100)
--- NOTE | 2021-03-19 07:22 | HMH.ACPN2 ---
Internal Medicine - PN: Subj *Date: 03/19/21 *Time: 07:22 Interval history: Patient has no complaints this morning. He reports continued weakness. I was able to speak with his outside treating physicians for his peripheral arterial disease and coronary artery disease yesterday and transfer has been arranged [facility]. Currently no beds are available and it is anticipated he will be transferred sometime over the weekend for vascular surgery eval Exam Vital signs and Labs for Last 24 Hours: Temp Pulse Resp BP Pulse Ox 98 F 94 H 16 136/70 88 L 03/19/21 04:00 03/19/21 05:50 03/19/21 04:00 03/19/21 04:00 03/19/21 05:50 Laboratory Results - last 24 hr 03/18/21 05:44: C-Reactive Protein 285.9 H 03/18/21 05:44: Sodium 132 L, Potassium 3.8, Chloride 98, Carbon Dioxide 25, Anion Gap 12.8, BUN 46 H, Creatinine 1.30 H D, Estimated Creat Clear 83, Estimated GFR 54 L, Est GFR ( Amer) 65 D, Glucose 101 H, Calcium 7.9 L 03/19/21 05:41: WBC 4.9, RBC 3.16 L, Hgb 10.1 L, Hct 31.2 L, MCV 98.8 H, MCH 31.9 H, MCHC 32.3, RDW 17.0, Plt Count 87 L, MPV 9.9, Neut % (Auto) 69.0, Lymph % (Auto) 16.6, [place] % (Auto) 6.4, Eos % (Auto) 7.4, Baso % (Auto) 0.6, Neut # (Auto) 3.4, Lymph # (Auto) 0.8, [place] # (Auto) 0.3, Eos # (Auto) 0.4, Baso # (Auto) 0.0 03/19/21 05:41: Sodium 132 L, Potassium 4.0, Chloride 98, Carbon Dioxide 27, Anion Gap 11.0, BUN 37 H, Creatinine 1.20, Estimated Creat Clear 89, Estimated GFR 59, Est GFR ( Amer) 71, Glucose 120 H, Calcium 8.5 I & O for Last 24 hours: Intake & Output 03/16/21 03/17/21 03/18/2121 11:59 11:59 11:59 11:59 Intake Total 5204 / 5204 420 / 420 1200 / 1200 840 / 840 Output Total 600 / 600 1950 / 1950 1500 / 1500 1650 / 1650 Balance 4604 / 4604 -1530 / -1530 -300 / -300 -810 / -810 Weight 265 lb 264 lb 5 oz 264 lb 5 oz 260 lb 1.6 oz Microbiology Reports for the Last 24 Hours: Microbiology 03/15/21 15:00 Foot,Right - Wound Gram Stain - Final 03/15/21 15:00 Foot,Right - Wound Wound Culture - Final Staphylococcus equorum 03/15/21 08:00 Foot,Right - Drainage Gram Stain - Final 03/15/21 08:00 Foot,Right - Drainage Wound Culture - Final Enterococcus faecalis 03/13/21 15:15 Blood Blood Culture - Final NO GROWTH AFTER 5 DAYS 03/13/21 15:15 Blood Blood Culture - Final NO GROWTH AFTER 5 DAYS 03/13/21 15:25 Foot,Right - Drainage Gram Stain - Final 03/13/21 15:25 Foot,Right - Drainage Wound Culture - Final Staphylococcus schleiferi 03/15/21 15:00 Foot,Right - Final Narrative: Patient is in no distress this morning. Lungs are distant especially at the bases. Heart has a regular rate and rhythm. Abdomen is obese. Right lower extremity shows a mummified second toe with loss of superficial layer of skin on the dorsum of the right foot. The right lower extremity is warm. The right lower extremity is less tender than previous days Assessment and Plan (1) Gangrene of right foot Status: Acute Category: Medical Code(s): I96 - Gangrene, not elsewhere classified (2) Type 2 diabetes mellitus with hyperglycemia Status: Acute Category: Medical Code(s): E11.65 - Type 2 diabetes mellitus with hyperglycemia (3) Diabetes mellitus, with long-term current use of insulin Status: Acute Category: Medical Code(s): E11.9 - Type 2 diabetes mellitus without complications; Z79.4 - long-term (current) use of insulin (4) Peripheral arterial disease Status: Acute Category: Medical Code(s): I73.9 - Peripheral vascular disease, unspecified (5) Diabetic peripheral neuropathy Status: Acute Category: Medical Code(s): E11.42 - Type 2 diabetes mellitus with diabetic polyneuropathy (6) Coronary artery disease Status: Acute Category: Medical Code(s): I25.10 - Atherosclerotic heart di
--- NOTE | 2021-03-19 07:54 | HMH.ORTHPN ---
Subjective Date: 03/19/21 Time: 08:00 Principal diagnosis: Right foot gas gangrene s/p I&D Interval history: Patient is sitting up in bed this morning and states his foot is still very painful. The patient will be transferred to [facility] [place] in [place] for a vascular evaluation as soon as there is availability. I will do his dressing change this morning and he will need dressing changes over the weekend until he is transferred out. I will place an order for nursing to change it according to my notes. PN: Obj Ex Vital signs: Temp Pulse Resp BP Pulse Ox 98 F 94 H 16 136/70 88 L 03/19/21 04:00 03/19/21 05:50 03/19/21 04:00 03/19/21 04:00 03/19/21 05:50 - Constitutional no acute distress - Routine HEENT Exam Head: Present: normocephalic Eye: Present: EOMI ENT: Present: mucous membranes moist - Routine Neck Exam Present: trachea midline - Routine Respiratory Exam Absent: respiratory distress - Routine Cardiovascular Exam Present: RRR - Routine Abdominal Exam Present: soft, obese - Routine Extremities Exam Present: pulses intact (Left DP/PT palpated, Right DP/PT non-palpable ). Absent: normal capillary refill, calf tenderness - Detailed Lower Extremity Exam Top foot image: 1 - Right dorsal foot has 3 incisions that had no drainage this morning the top of the dorsal foot has dark red tissue that is getting very stiff. There is one medial incision and two plantar incisions. All sites were flushed with betadine/normal saline flush then packed with 1/2 packing soaked in Betadine and covered with Betadine soaked 4 x 4, dry 4 x 4, Kerlix and Rco wrap. Color is very pale and dusky on the plantar as well as dorsal foot. Second toe is looking mummified and very dark and immobile.The 3rd toe is strating to have some dark tissue as well. Patient does not have much feeling to his hallux, absent sensation to his 2-4th toes and minimal to his right 5th toe. Right foot is cool to touch. No drainage noted from any of the site. 2 - Right medial incision Bottom foot image: 1 - Right foot 2 plantar incisions. - Routine Skin Exam Present: cyanosis (Right dorsal and plantar foot dusky and cool ), wounds (S/P right foot incision and drainage, right foot debridement) - Routine Neurological Exam Present: alert, oriented X3 (CAUTI Placed ), vision grossly intact, hearing grossly intact, normal speech - Routine Psychiatric Exam Present: normal affect, cooperative - Urinary Catheter Management Coude Cath placed during this visit: no Progress Note: A&P (1) Gangrene of right foot Status: Acute (2) Type 2 diabetes mellitus with hyperglycemia Status: Acute (3) Diabetes mellitus, with long-term current use of insulin Status: Acute (4) Peripheral arterial disease Status: Acute (5) Diabetic peripheral neuropathy Status: Acute (6) Coronary artery disease Status: Acute (7) Atrial fibrillation Status: Acute (8) Obesity Status: Acute (9) Thrombocytopenia Status: Acute (10) Anemia Status: Acute (11) Gas gangrene Status: Acute (12) Diabetic infection of right foot Status: Acute (13) Acute systolic (congestive) heart failure Status: Acute (14) Moderate aortic stenosis Status: Acute Assessment and Plan for All Diagnoses:: S/P 03/15/21 Right foot incision and drainage, Right foot debridement POD#[address] Plata and I discussed plan of care with Dr. Zimmerman. He did speak with the vascular doctor. He will arrange for patient transfer for further vascular work-up and possible intervention. If no vascular procedure could be performed patient will need below-knee amputation. Podiatry will sign off. Please re-consult if needed. Microbiology 03/15/21 15:00 Foot,Right - Wound Gram Stain - Final
--- NOTE | 2021-03-19 07:54 | HMH.PHACONS ---
- Pharmacy Consult Date: 03/19/21 Time: 07:59 Referring provider: DR. KELLEY Reason for Consult:: VANCOMYCIN DOSING Allergies and ADEs:: Allergies Allergy/AdvReac Type Severity Reaction Status Date / Time Penicillins [PENICILLINS] AdvReac Mild Other Verified 03/15/21 10:32 Home Medications:: Home Medications Medication Instructions Recorded Confirmed Type Amlodipine Besylate [Norvasc 5mg 5 mg PO DAILY 09/29/17 03/13/21 History tablet] Atorvastatin Calcium [Lipitor 40mg 40 mg PO HS 09/29/17 03/14/21 History Tablet] Furosemide [Lasix 40mg tab] 80 mg PO BID 09/29/17 03/13/21 History Potassium Chloride [Klor-Con 20 20 meq PO TID 09/29/17 03/13/21 History mEq Packet] carvediloL [Coreg 25mg Tablet] 12.5 mg PO BID 09/29/17 03/13/21 History Ferrous Gluconate [Ferrous 324 mg PO DAILY 10/13/17 03/13/21 History Gluconate 324mg Tab] Alendronate Sodium [Alendronate 35 mg PO WEEKLY 11/12/20 03/13/21 History 35mg Tablet] Apixaban [Eliquis 5mg tab] 5 mg PO BID 11/12/20 03/13/21 History Cholecalciferol (Vitamin D3) 50,000 unit PO WEEKLY 11/12/20 03/13/21 History [Vitamin D3 50,000 unit Cap] Insulin Glargine,Hum.rec.anlog 20 units SQ DAILY 11/12/20 03/13/21 History [Lantus Solostar 100 Units/mL 3mL flexpen] Losartan Potassium 100 mg PO DAILY 11/12/20 03/13/21 History Metformin HCl [Metformin HCl ER] 2,000 mg PO HS 11/12/20 03/13/21 History Multivitamin 1 each PO DAILY 11/12/20 03/13/21 History Sotalol HCl [Sotalol] 80 mg PO DAILY 11/12/20 03/13/21 History Height: 1.8 m Weight: 117.979 kg Laboratory Results:: Laboratory Results - last 24 hr 03/18/21 05:44: C-Reactive Protein 285.9 H 03/18/21 05:44: Sodium 132 L, Potassium 3.8, Chloride 98, Carbon Dioxide 25, Anion Gap 12.8, BUN 46 H, Creatinine 1.30 H D, Estimated Creat Clear 83, Estimated GFR 54 L, Est GFR ( Amer) 65 D, Glucose 101 H, Calcium 7.9 L 03/19/21 05:41: WBC 4.9, RBC 3.16 L, Hgb 10.1 L, Hct 31.2 L, MCV 98.8 H, MCH 31.9 H, MCHC 32.3, RDW 17.0, Plt Count 87 L, MPV 9.9, Neut % (Auto) 69.0, Lymph % (Auto) 16.6, [place] % (Auto) 6.4, Eos % (Auto) 7.4, Baso % (Auto) 0.6, Neut # (Auto) 3.4, Lymph # (Auto) 0.8, [place] # (Auto) 0.3, Eos # (Auto) 0.4, Baso # (Auto) 0.0 03/19/21 05:41: Sodium 132 L, Potassium 4.0, Chloride 98, Carbon Dioxide 27, Anion Gap 11.0, BUN 37 H, Creatinine 1.20, Estimated Creat Clear 89, Estimated GFR 59, Est GFR ( Amer) 71, Glucose 120 H, Calcium 8.5 Medical History: Reports:: Atherosclerotic Heart Disease, Atrial Fibrillation, Congestive Heart Failure, Coronary Artery Disease, Diabetes Mellitus Type 2, Hyperlipidemia, Hypertension, MRSA, Myocardial Infarction, Peripheral Artery Disease, Renal Disease, Transient Ischemic Attacks (TIA) Denies:: Cancer, Diabetes Mellitus Type 1, Internal Pacemaker, Lung Disease, Seizures Assessment and Plan (1) Gangrene of right foot Status: Acute Category: Medical Code(s): I96 - Gangrene, not elsewhere classified (2) Type 2 diabetes mellitus with hyperglycemia Status: Acute Category: Medical Code(s): E11.65 - Type 2 diabetes mellitus with hyperglycemia (3) Diabetes mellitus, with long-term current use of insulin Status: Acute Category: Medical Code(s): E11.9 - Type 2 diabetes mellitus without complications; Z79.4 - equipment operator [employer] (current) use of insulin (4) Peripheral arterial disease Status: Acute Category: Medical Code(s): I73.9 - Peripheral vascular disease, unspecified (5) Diabetic peripheral neuropathy Status: Acute Category: Medical Code(s): E11.42 - Type 2 diabetes mellitus with diabetic polyneuropathy (6) Coronary artery disease Status: Acute Category: Medical Code(s): I25.10 - Atherosclerotic heart disease of [place] coronary artery without angina pectoris (7) Atrial fibrillation Status: Acute Category: Medical Code(s): I48.91 - Unspecified atrial fibrillation (8) Obesity Status: Acute Category: Medical Code(s
[2021-03-19 10:19] LABS: POC Glucose,Bedside 189 (70-110)
[2021-03-19 10:19] LABS: POC Glucose,Bedside 137 (70-110)
[2021-03-19 10:19] LABS: POC Glucose,Bedside 136 (70-110)
[2021-03-19 10:19] LABS: POC Glucose,Bedside 189 (70-110)
[2021-03-19 10:19] LABS: POC Glucose,Bedside 192 (70-110)
[2021-03-19 11:57] LABS: POC Glucose,Bedside 152 (70-110)
[2021-03-19 16:56] LABS: POC Glucose,Bedside 151 (70-110)
--- NOTE | 2021-03-19 18:39 | PC.NURSE ---
PT IS AOX4, STILL REQUIRES 2LNC FOR O2 SUPPORT. REYES CATH IN PLACE. VSS THIS SHIFT. STILL NO BED AVAILABLE FOR TRANSFER.
[2021-03-19 22:07] LABS: POC Glucose,Bedside 143 (70-110)
[2021-03-20] VITALS (8 sets, daily range): BP systolic 115–140; BP diastolic 59–72; PULSE 78–89; RESP 16–18; TEMP 36.4–37.1; O2SAT 93–98; BMI 36.1
--- NOTE | 2021-03-20 04:09 | PC.NURSE ---
Patient is A&Ox4. He has worn 2LNC this shift. Patient has had c/o of pain throughout the shift. Patient has some swelling around his right foot that is non-pitting, there is warmness to his extremity up to midcalf. Patient has tenderness up to his knee. Patient states he had 2 BM (03/19). He has rested poorly this shift. Jack is draining adequate amount of urine. VSS, call light within reach, will continue to monitor.
[2021-03-20 05:36] LABS: POC Glucose,Bedside 120 (70-110)
--- NOTE | 2021-03-20 05:53 | PC.NURSE ---
0552 [facility] called to give an update on the bed situation: no bed available, no time frame given for when a bed would become available.
[2021-03-20 06:06] LABS: Chloride 99 mmol/L (98-107); Sodium 136 mmol/L (136-145)
[2021-03-20 06:07] LABS: Potassium 3.9 mmoL/L (3.5-5.1)
[2021-03-20 06:10] LABS: Anion Gap 10.9 mEq/L (5-15); Blood Urea Nitrogen 29 mg/dl (9-20); Calcium 8.4 mg/dl (8.4-10.2); Carbon Dioxide 30 mmol/L (22.0-30.0); Creatinine Clearance Estimated 88 mL/min (50-200); Estimated Glomerular Filt Rate 59 ml/min (>60); GFR (African American) 71 ML/MIN (>60); Glucose 119 mg/dl (74-100)
[2021-03-20 06:17] LABS: Basophils % 0.3 % (0.1-2.0); Eosinophils # 0.3 K/mm3 (0.0-0.4); Eosinophils % 7.6 % (0.1-12.0); Hematocrit 28.8 % (42.0-52.0); Hemoglobin 9.2 g/dL (14.1-18.0); Lymphocytes # 0.8 K/mm3 (0.7-4.5); Lymphocytes % 19.3 % (10-50); Mean Corpuscular HGB Conc 32.1 g/dL (31.8-35.4); Mean Corpuscular Hemoglobin 31.8 pg (27.0-31.2); Mean Platelet Volume 10.2 fl (7.4-10.4); Monocytes # 0.2 K/mm3 (0.1-1.0); Monocytes % 5.4 % (1.7-9.3); Neutrophils # 2.9 K/mm3 (1.8-7.8); Neutrophils % 67.3 % (37.0-80.0); Platelet Count 80 K/mm3 (142-424); Red Blood Count 2.91 M/mm3 (4.60-6.20); Red Cell Distribution Width 17.6 % (11.5-17.5); White Blood Count 4.4 K/mm3 (4.8-10.8)
--- NOTE | 2021-03-20 08:56 | HMH.ACPN2 ---
Internal Medicine - PN: Subj *Date: 03/20/21 *Time: 08:56 Interval history: Patient has no complaints. There have been no acute events over the last 24 hours. Patient reports feeling better this morning. Exam Vital signs and Labs for Last 24 Hours: Temp Pulse Resp BP Pulse Ox 97.7 F 87 18 140/72 98 03/20/21 08:00 03/20/21 08:00 03/20/21 08:00 03/20/21 08:00 03/20/21 08:00 Laboratory Results - last 24 hr 03/18/21 11:22: POC Glucose 189 H 03/18/21 16:34: POC Glucose 192 H 03/18/21 19:56: POC Glucose 137 H 03/19/21 05:01: POC Glucose 136 H 03/19/21 09:50: POC Glucose 189 H 03/19/21 11:49: POC Glucose 152 H 03/19/21 16:45: POC Glucose 151 H 03/19/21 20:01: POC Glucose 143 H 03/20/21 05:28: POC Glucose 120 H 03/20/21 05:43: C-Reactive Protein 100.0 H 03/20/21 05:43: WBC 4.4 L, RBC 2.91 L, Hgb 9.2 L, Hct 28.8 L, MCV 99.0 H, MCH 31.8 H, MCHC 32.1, RDW 17.6 H, Plt Count 80 L, MPV 10.2, Neut % (Auto) 67.3, Lymph % (Auto) 19.3, [place] % (Auto) 5.4, Eos % (Auto) 7.6, Baso % (Auto) 0.3, Neut # (Auto) 2.9, Lymph # (Auto) 0.8, [place] # (Auto) 0.2, Eos # (Auto) 0.3, Baso # (Auto) 0.0 03/20/21 05:43: Sodium 136, Potassium 3.9, Chloride 99, Carbon Dioxide 30, Anion Gap 10.9, BUN 29 H, Creatinine 1.20, Estimated Creat Clear 88, Estimated GFR 59, Est GFR ( Amer) 71, Glucose 119 H, Calcium 8.4 I & O for Last 24 hours: Intake & Output 03/17/21 03/18/21 03/19/2103/20/21 11:59 11:59 11:59 11:59 Intake Total 420 / 420 1200 / 1200 1320 / 1320 840 / 840 Output Total 1950 / 1950 1500 / 1500 1650 / 1650 3175 / 3175 Balance -1530 / -1530 -300 / -300 -330 / -330 -2335 / -2335 Weight 264 lb 5 oz 264 lb 5 oz 260 lb 1.6 oz 258 lb 9 oz Microbiology Reports for the Last 24 Hours: Microbiology 03/15/21 15:00 Foot,Right - Wound Gram Stain - Final 03/15/21 15:00 Foot,Right - Wound Wound Culture - Final Staphylococcus equorum 03/15/21 08:00 Foot,Right - Drainage Gram Stain - Final 03/15/21 08:00 Foot,Right - Drainage Wound Culture - Final Enterococcus faecalis Narrative: Patient is in no distress. Lungs have expiratory wheezes. Heart has a regular rate and rhythm. Abdomen is obese. Right lower extremity is heavily bandaged from the ankle to the toes. Skin is warm to the touch. Patient has 2+ edema. Significant improvement in tenderness of the right lower extremity Assessment and Plan (1) Gangrene of right foot Status: Acute Category: Medical Code(s): I96 - Gangrene, not elsewhere classified (2) Type 2 diabetes mellitus with hyperglycemia Status: Acute Category: Medical Code(s): E11.65 - Type 2 diabetes mellitus with hyperglycemia (3) Diabetes mellitus, with long-term current use of insulin Status: Acute Category: Medical Code(s): E11.9 - Type 2 diabetes mellitus without complications; Z79.4 - terminal press operator (current) use of insulin (4) Peripheral arterial disease Status: Acute Category: Medical Code(s): I73.9 - Peripheral vascular disease, unspecified (5) Diabetic peripheral neuropathy Status: Acute Category: Medical Code(s): E11.42 - Type 2 diabetes mellitus with diabetic polyneuropathy (6) Coronary artery disease Status: Acute Category: Medical Code(s): I25.10 - Atherosclerotic heart disease of [place] coronary artery without angina pectoris (7) Atrial fibrillation Status: Acute Category: Medical Code(s): I48.91 - Unspecified atrial fibrillation (8) Obesity Status: Acute Category: Medical Code(s): E66.9 - Obesity, unspecified - Assessment and plan all Dx Assessment and Plan for all problems:: 1. Plan remains the patient will be transferred to [facility] when bed is available for vascular evaluation 2. Continue daily Lasix for congestive heart failure 3. Platelets remained stable so Lovenox will be continued at 1 mg/kg subcu for patient's A. fib and PAD
--- NOTE | 2021-03-20 10:38 | PC.NURSE ---
[facility] called to update on bed availability. Still no beds available at this time.
[2021-03-20 17:20] LABS: POC Glucose,Bedside 161 (70-110)
[2021-03-20 17:20] LABS: POC Glucose,Bedside 160 (70-110)
--- NOTE | 2021-03-20 20:03 | PC.NURSE ---
pt has done fine this shift. CB has called x1 this shift, still no bed available. Pt tolerated dressing change well, pt was premedicated per MAR prior to dressing change. Pt has urinated approx 2L per dodson this shift. No other acute changes or complaints, will continue to monitor.
[2021-03-20 20:17] LABS: POC Glucose,Bedside 135 (70-110)
[2021-03-21] VITALS: BP 140/77; PULSE 88; RESP 19; TEMP 36.7; O2SAT 96
--- NOTE | 2021-03-21 03:33 | PC.NURSE ---
Patient is A&Ox4. He has been pleasant this shift. His dodson is draining adequate amount of clear, yellow urine. Patient has appeared to have rested well this shift. Patient's right foot dsg is C/D/I. He still has complaints of tenderness mid-lower extremity around his hayes, it is warm to the touch, edema is noted to his ankle and foot. He has 1+ pitting edema noted to his left foot and ankle. Patient wears his NC intermittently. IV is patent and SL. Patient last BM was on 03/20 that morning. VSS, call light within reach, will continue to monitor.
[2021-03-21 04:00] VITALS: BP 135/70; PULSE 91; RESP 18; TEMP 36.8; O2SAT 98
[2021-03-21 04:36] VITALS: BMI 36.2
[2021-03-21 05:25] LABS: POC Glucose,Bedside 166 (70-110)
--- NOTE | 2021-03-21 05:57 | PC.NURSE ---
[facility] called at this time to update us in the wait list for the patient. No bed still available at this time.
[2021-03-21 06:38] LABS: Basophils % 0.3 % (0.1-2.0); Eosinophils # 0.3 K/mm3 (0.0-0.4); Eosinophils % 6.1 % (0.1-12.0); Hematocrit 30.9 % (42.0-52.0); Hemoglobin 9.5 g/dL (14.1-18.0); Lymphocytes # 0.8 K/mm3 (0.7-4.5); Lymphocytes % 17.5 % (10-50); Mean Corpuscular HGB Conc 30.9 g/dL (31.8-35.4); Mean Corpuscular Hemoglobin 31.2 pg (27.0-31.2); Mean Corpuscular Volume 101.1 fl (80-94); Mean Platelet Volume 10.5 fl (7.4-10.4); Monocytes # 0.3 K/mm3 (0.1-1.0); Monocytes % 5.5 % (1.7-9.3); Neutrophils # 3.2 K/mm3 (1.8-7.8); Neutrophils % 70.6 % (37.0-80.0); Platelet Count 80 K/mm3 (142-424); Red Blood Count 3.06 M/mm3 (4.60-6.20); Red Cell Distribution Width 17.5 % (11.5-17.5); White Blood Count 4.5 K/mm3 (4.8-10.8)
[2021-03-21 06:46] LABS: Chloride 99 mmol/L (98-107); Potassium 3.8 mmoL/L (3.5-5.1); Sodium 139 mmol/L (136-145)
[2021-03-21 06:49] LABS: Blood Urea Nitrogen 26 mg/dl (9-20); Creatinine Clearance Estimated 96 mL/min (50-200); Estimated Glomerular Filt Rate 65 ml/min (>60); GFR (African American) 79 ML/MIN (>60)
[2021-03-21 06:50] LABS: Anion Gap 10.8 mEq/L (5-15); Calcium 8.5 mg/dl (8.4-10.2); Carbon Dioxide 33 mmol/L (22.0-30.0); Glucose 147 mg/dl (74-100)
[2021-03-21 06:51] VITALS: PULSE 94; O2SAT 94
--- NOTE | 2021-03-21 07:57 | HMH.ACPN2 ---
Internal Medicine - PN: Subj *Date: 03/21/21 *Time: 07:57 Interval history: Patient continues to have right foot pain. Denies shortness of breath this morning Exam Vital signs and Labs for Last 24 Hours: Temp Pulse Resp BP Pulse Ox 98.3 F 94 H 18 135/70 94 L 03/21/21 04:00 03/21/21 06:51 03/21/21 04:00 03/21/21 04:00 03/21/21 06:51 Laboratory Results - last 24 hr 03/20/21 11:38: POC Glucose 160 H 03/20/21 17:10: POC Glucose 161 H 03/20/21 20:09: POC Glucose 135 H 03/21/21 05:14: POC Glucose 166 H 03/21/21 06:17: WBC 4.5 L, RBC 3.06 L, Hgb 9.5 L, Hct 30.9 L, MCV 101.1 H, MCH 31.2, MCHC 30.9 L, RDW 17.5, Plt Count 80 L, MPV 10.5 H, Neut % (Auto) 70.6, Lymph % (Auto) 17.5, [place] % (Auto) 5.5, Eos % (Auto) 6.1, Baso % (Auto) 0.3, Neut # (Auto) 3.2, Lymph # (Auto) 0.8, [place] # (Auto) 0.3, Eos # (Auto) 0.3, Baso # (Auto) 0.0 03/21/21 06:17: Sodium 139, Potassium 3.8, Chloride 99, Carbon Dioxide 33 H, Anion Gap 10.8, BUN 26 H, Creatinine 1.10, Estimated Creat Clear 96, Estimated GFR 65, Est GFR ( Amer) 79, Glucose 147 H, Calcium 8.5 I & O for Last 24 hours: Intake & Output 03/18/21 03/19/21 03/20/21 03/21/21 11:59 11:59 11:59 11:59 Intake Total 1200 / 1200 1320 / 1320 840 / 840 480 / 480 Output Total 1500 / 1500 1650 / 1650 3175 / 3175 3575 / 3575 Balance -300 / -300 -330 / -330 -2335 / -2335 -3095 / -3095 Weight 264 lb 5 oz 260 lb 1.6 oz 258 lb 9 oz 259 lb - Constitutional no acute distress - *Routine Respiratory Exam Present: crackles (Bases) - *Routine Cardiovascular Exam Present: RRR, Normal S1, Normal S2 - *Routine Abdominal Exam Present: obese - *Routine Extremities Exam Comments: Right foot and ankle are heavily bandaged. Right ankle is tender to palpation. No erythema of the visible ankle and hayes Assessment and Plan (1) Gangrene of right foot Status: Acute Category: Medical Code(s): I96 - Gangrene, not elsewhere classified (2) Type 2 diabetes mellitus with hyperglycemia Status: Acute Category: Medical Code(s): E11.65 - Type 2 diabetes mellitus with hyperglycemia (3) Diabetes mellitus, with long-term current use of insulin Status: Acute Category: Medical Code(s): E11.9 - Type 2 diabetes mellitus without complications; Z79.4 - [facility] (current) use of insulin (4) Peripheral arterial disease Status: Acute Category: Medical Code(s): I73.9 - Peripheral vascular disease, unspecified (5) Diabetic peripheral neuropathy Status: Acute Category: Medical Code(s): E11.42 - Type 2 diabetes mellitus with diabetic polyneuropathy (6) Coronary artery disease Status: Acute Category: Medical Code(s): I25.10 - Atherosclerotic heart disease of [place] coronary artery without angina pectoris (7) Atrial fibrillation Status: Acute Category: Medical Code(s): I48.91 - Unspecified atrial fibrillation (8) Obesity Status: Acute Category: Medical Code(s): E66.9 - Obesity, unspecified (9) Staphylococcal infection of skin Status: Acute Category: Medical Code(s): L08.9 - Local infection of the skin and subcutaneous tissue, unspecified; B95.8 - Unspecified staphylococcus as the cause of diseases classified elsewhere (10) Enterococcus faecalis infection Status: Acute Category: Medical Code(s): B95.2 - Enterococcus as the cause of diseases classified elsewhere - Assessment and plan all Dx Assessment and Plan for all problems:: 1.Patient remained stable. Inflammatory markers have trended down. Continue vancomycin for his right foot wound with gangrene with both Staphylococcus and Enterococcus positive wound cultures. 2. Patient will be transferred to [facility] for further vascular evaluation when bed becomes available 3. Patient remains on Lovenox as an anticoagulant. Platelets remain stable at 80,000
[2021-03-21 08:00] VITALS: BP 138/67; PULSE 95; RESP 20; TEMP 36.7; O2SAT 95
--- NOTE | 2021-03-21 08:01 | HMH.DCSUM ---
General - General Admission date:: 03/13/21 HPI HPI: 76-year-old male presented to the emergency department with 2 to 3 days of right foot pain with discoloration in the right foot. Patient had injured his second right toe while trying to trim his toenail. He believes he cut the nail too short and ended up causing a small cut on the tip of the toe. Over the following 48 to 72 hours discoloration had developed in the second toe. Discoloration was purple and was beginning to spread to the distal foot. He had increasing pain in the foot along with inability to ambulate. Patient has a history of peripheral arterial disease and tells me he was actually scheduled for vascular surgery consultation this coming Monday to look at potential bypass surgery in the lower extremity. In addition to his peripheral arterial disease patient has diabetic peripheral neuropathy. He admits to having chills but no documented fevers as of yet. Patient endorses general malaise as well Hospital Course Hospital Course: Patient was admitted for gangrene of the right toe and initially placed on Zosyn and vancomycin. Infection of the toe rapidly spread to the distal foot and midfoot and patient became septic. Patient was given IV fluid boluses for his hypotension which stabilized the patient. He did not require pressors. He developed acute kidney injury from his sepsis with acute kidney injury resolving with IV fluids and discontinuation of nephrotoxic medications. Antibiotics were changed to Merrem and Zyvox. Podiatry was consulted. Patient had wound cultures performed which grew 2 staphylococcal species and Enterococcus, all sensitive to vancomycin. Merrem and Zyvox were discontinued and patient was restarted on vancomycin with close monitoring of Vanco troughs and renal function. Renal function remained stable during the remainder of hospitalization. Patient presented with a gangrenous right toe with rapid extension of gangrene and wound infection. Podiatry was consulted as was cardiology due to the patient's extensive history of peripheral arterial disease. JOHN was performed during inpatient stay with critical disease diagnosed at the level of the dorsalis pedis. Results of JOHN are documented below: Pressures/Indices Right Indices Left Indices Brachial 87.00 mmHg Brachial 88.00 mmHg Low Thigh 38.00 mmHg 0.43 Low Thigh 83.00 mmHg 0.94 Calf 241.00 mmHg 2.74 Calf 121.00 mmHg 1.38 Ankle(PT) 60.00 mmHg 0.68 Ankle(PT) 60.00 mmHg 0.68 Ankle(DP) 30.00 mmHg 0.34 Ankle(DP) 67.00 mmHg 0.76 Findings RT JOHN=0.68 LT JOHN=0.76 RT TBI=unobtainable LT TBI=unobtainable Diminished pulses bilaterally Diminished waveforms bilterally Multiple attempts made to obtain toe waveforms for TBI. No waveform detected. Conclusion RT JOHN=0.68 LT JOHN=0.76 RT TBI=unobtainable LT TBI=unobtainable Diminished pulses bilaterally Diminished waveforms bilterally Moderate bilateral arterial disease Multiple attempts made to obtain toe waveforms for TBI. No waveform detected. Podiatry felt like toe and distal foot amputation would likely not benefit the patient and would put him at increased risk for wound dehiscence or failure of wound closure. Patient has extensive history of peripheral arterial disease with last interventions in August of this year. We obtained records of that angiogram performed by Dr. Lanie Hill. While patient did have an angiogram attempt to address PAD in both lower extremities was unsuccessful. Our assistant director of financial aid felt like angiogram was risky at the time due to patient's impaired renal function and confidence that if Dr. Hill was unable to adequately address the PAD then patient's prognosis was quite poor. I did speak with Dr. Hill who recommended transfer to a facility with vascular surgeons regarding the possibility that a distal bypass
== END 2021-03-21 11:12 | disposition home or self-care (01) | DRG 981 ==
LOC: ER 15:52 → 2ND 16:08
PROVIDERS: Podiatrist; Admitting Provider Internal Medicine Adolescent Medicine; Emergency Provider Emergency Medicine; PCP Family Medicine; Visit Provider Family Medicine
PROC: 0HBMXZZ Excision of Right Foot Skin, External Approach (ICD-10-PCS; principal; 2021-03-15 11:30)
DX: E11.52 Type 2 diabetes mellitus with diabetic peripheral angiopathy with gangrene (principal); I50.21 Acute systolic (congestive) heart failure; A41.9 Sepsis, unspecified organism; I96 Gangrene, not elsewhere classified; N17.9 Acute kidney failure, unspecified; E11.42 Type 2 diabetes mellitus with diabetic polyneuropathy; I11.0 Hypertensive heart disease with heart failure; I25.10 Atherosclerotic heart disease of native coronary artery without angina pectoris; I48.91 Unspecified atrial fibrillation; Z79.4 Long term (current) use of insulin; E78.5 Hyperlipidemia, unspecified; Z95.9 Presence of cardiac and vascular implant and graft, unspecified; Z95.5 Presence of coronary angioplasty implant and graft; E66.9 Obesity, unspecified; Z68.36 Body mass index [BMI] 36.0-36.9, adult; E87.5 Hyperkalemia; Z79.02 Long term (current) use of antithrombotics/antiplatelets; D69.6 Thrombocytopenia, unspecified; D64.9 Anemia, unspecified; E11.65 Type 2 diabetes mellitus with hyperglycemia; I35.0 Nonrheumatic aortic (valve) stenosis; B95.2 Enterococcus as the cause of diseases classified elsewhere; B95.8 Unspecified staphylococcus as the cause of diseases classified elsewhere; T50.995A Adverse effect of other drugs, medicaments and biological substances, initial encounter
CPT/HCPCS: 28306; 36415; 71045; 73630; 73700; 80048; 80053; 81001; 82962; 83605; 84145; 85007; 85014; 85018; 85025; 85610; 85651; 86140; 86850; 86900; 86901; 87040; 87070; 87075; 87077; 87186; 87205; 93005; 93306; 93923; 94640; 96365; 96367; 96375; 97110; 97162; 99285; C9803; J2020; J2185; J2405; J3370; P9016; P9034; Q9957; U0003; U0005

== ENCOUNTER 2021-04-13 08:30 | Outpatient (CLI) | payer MEDICARE, MEDICAID, SELFPAY ==
[2021-04-13] VITALS (12 sets, daily range): BP systolic 97–122; BP diastolic 42–74; PULSE 67–72; RESP 18–20; TEMP 35.7–36.9; O2SAT 95–99; BMI 30.8
[2021-04-13 09:05] LABS: Hematocrit 23.9 % (42.0-52.0); Hemoglobin 7.9 g/dL (14.1-18.0)
[2021-04-13 14:14] LABS: Hematocrit 26.4 % (42.0-52.0); Hemoglobin 8.9 g/dL (14.1-18.0)
== END 2021-04-13 14:15 | disposition home or self-care (01) ==
LOC: INF 08:33
PROVIDERS: PCP Family Medicine; Visit Provider Nurse Practitioner Family
DX: D64.9 Anemia, unspecified (principal)
CPT/HCPCS: 36430; 85014; 85018; 86850; P9016

== ENCOUNTER 2022-04-23 13:16 | Observation (INO) | payer MEDICARE, MEDICAID, SELFPAY ==
[2022-04-23] VITALS (23 sets, daily range): BP systolic 97–140; BP diastolic 54–76; PULSE 76–96; RESP 16–18; TEMP 36.3–36.9; O2SAT 95–98; BMI 37.6; BMI 31.1
[2022-04-23 14:24] LABS: Chloride 99 mmol/L (98-107); Potassium 5.2 mmoL/L (3.5-5.1); Sodium 136 mmol/L (136-145)
[2022-04-23 14:26] LABS: Blood Urea Nitrogen 34 mg/dl (9-20); Creatinine Clearance Estimated 73 mL/min (50-200); Estimated Glomerular Filt Rate 46 ml/min (>60); GFR (African American) 55 ML/MIN (>60)
[2022-04-23 14:27] LABS: Alanine Aminotransferase 18 U/L (12-78); Albumin Level 4.1 g/dl (3.5-5.0); Albumin/Globulin Ratio 1.7 (1.1-1.8); Alkaline Phosphatase 103 U/L (38-126); Anion Gap 18.2 mEq/L (5-15); Aspartate Amino Transferase 22 U/L (17-59); Bilirubin,Total 0.9 mg/dl (0.2-1.3); Calcium 9.5 mg/dl (8.4-10.2); Carbon Dioxide 24 mmol/L (22.0-30.0); Globulin 2.4 g/dL (1.3-3.2); Glucose 138 mg/dl (74-100); Total Protein,Serum 6.5 g/dl (6.3-8.2)
[2022-04-23 15:08] LABS: Basophils % 0.2 % (0.1-2.0); Eosinophils # 0.2 K/mm3 (0.0-0.4); Eosinophils % 8.9 % (0.1-12.0); Lymphocytes # 1.1 K/mm3 (0.7-4.5); Lymphocytes % 49.6 % (10-50); Mean Corpuscular HGB Conc 31.2 g/dL (31.8-35.4); Mean Corpuscular Hemoglobin 31.8 pg (27.0-31.2); Mean Corpuscular Volume 101.9 fl (80-94); Mean Platelet Volume 12.9 fl (7.4-10.4); Monocytes # 0.1 K/mm3 (0.1-1.0); Monocytes % 5.4 % (1.7-9.3); Neutrophils # 0.8 K/mm3 (1.8-7.8); Neutrophils % 35.9 % (37.0-80.0); Red Blood Count 1.86 M/mm3 (4.60-6.20); Red Cell Distribution Width 21.4 % (11.5-17.5); White Blood Count 2.2 K/mm3 (4.8-10.8)
[2022-04-23 15:15] LABS: Hematocrit 18.9 % (42.0-52.0); Platelet Count 28 K/mm3 (142-424)
--- NOTE | 2022-04-23 15:27 | PC.NURSE ---
Critical lab results called from lab. repeated and verifie dback to lab. h/h 5.9/18.9 plts 28
--- NOTE | 2022-04-23 15:33 | PC.NURSE ---
Called [facility] rec for recent labs and recent records
--- NOTE | 2022-04-23 16:04 | HMH.EDGENADL ---
Discharge Plan Disposition Patient Disposition: Admitted as Observation Condition: Good Chief Complaint: Epistaxis Prescriptions Prescriptions: No Action furosemide 40 MG Tablet 80 mg PO BID atorvastatin 40 MG Tablet 40 mg PO HS carvedilol 25 MG Tablet 12.5 mg PO BID amlodipine 5 MG Tablet 5 mg PO DAILY potassium chloride [Klor-Con] 20 MEQ Packet 20 meq PO TID ferrous gluconate 324 MG Tablet 324 mg PO DAILY multivitamin 1 EACH tablet 1 each PO DAILY sotalol 80 MG tablet 80 mg PO DAILY alendronate 35 MG tablet 35 mg PO WEEKLY losartan 100 MG tablet 100 mg PO DAILY metformin 500 MG tablet extended release 24 hr 2,000 mg PO HS cholecalciferol (vitamin D3) 1,250 MCG capsule 50,000 unit PO WEEKLY insulin glargine 100 UNIT/ML insulin pen 20 units SQ DAILY apixaban 5 MG tablets,dose pack 5 mg PO BID Referrals Follow up/Referrals: Clayton Kaur MD [Primary Care Provider] - See instructions Clinical Impressions Clinical Impression: Pancytopenia, Epistaxis Discharge ED Provider: Forrest Tariq Adult HPI General Chief complaint: Epistaxis Stated complaint: nose bleed since 04/14 Time Seen by Provider: 04/23/22 15:46 Mode of Arrival: Ambulatory Source of Information: Patient Limitations: No Limitations Description of Symptoms (Recalled from ER Triage Doc. by RN): Pt reports nose bleed that began approx 5mg night. Pt reports bleeding from L nare. Pt reports he is on Eliquis. Pt reports has hx of anemia, reports approx 1 month ago he got 2 units of blood at [facility] from label designer. History of Present Illness HPI narrative: Patient says that he has had nosebleeds off and on since 2 days ago. He says the bleeding seems to occur in the left nares, he notices that when he inserts a cottonball into the nares it seems to collect blood from the floor of that nares. He has had previous problems with nosebleeds. He says that he saw an ENT at [facility] couple of months ago and had some sort of procedure to ligate a blood vessel. He says that he is only had some minor nosebleeds since then until 2 days ago. He has a known history of septal perforation of the nose. he has a history of low blood counts. He saw Dr. Guillen, label designer at [facility] about a month ago and says that he got 2 units of blood. He says that Dr. Guillen told him that he was 5 pints low. The patient's brings in laboratory results from 02/09/2022 from primary care provider's office. At that point his hemoglobin was 6.9 and platelet count 21. It was at that time that he was referred to a label designer and received a transfusion. Related Data Home Medications Medication Instructions Recorded Confirmed amlodipine 5 mg tablet 5 mg PO DAILY blood pressure 09/29/17 03/13/21 atorvastatin 40 mg tablet 40 mg PO HS Cholesterol 09/29/17 03/14/21 carvedilol 25 mg tablet 12.5 mg PO BID blood pressure 09/29/17 03/13/21 furosemide 40 mg tablet 80 mg PO BID Fluid 09/29/17 03/13/21 potassium chloride 20 mEq oral 20 meq PO TID Supplement 09/29/17 03/13/21 packet (Klor-Con) ferrous gluconate 324 mg (38 mg 324 mg PO DAILY anemia 10/13/17 03/13/21 iron) tablet alendronate 35 mg tablet 35 mg PO WEEKLY Osteoporosis 11/12/20 03/13/21 apixaban 5 mg (74 tabs) tablets in 5 mg PO BID Blood thinner 11/12/20 03/13/21 a dose pack cholecalciferol (vitamin D3) 1,250 50,000 unit PO WEEKLY Supplement 11/12/20 03/13/21 mcg (50,000 unit) capsule insulin glargine 100 unit/mL (3 20 units SQ DAILY Diabetes 11/12/20 03/13/21 mL) subcutaneous pen losartan 100 mg tablet 100 mg PO DAILY blood pressure 11/12/20 03/13/21 metformin 500 mg tablet,extended 2,000 mg PO HS Diabetes 11/12/20 03/13/21 release 24 hr multivitamin 1 each PO DAILY Supplement 11/12/20 03/13/21 sotalol 80 mg tablet 80 mg PO DAILY Heartburn 11/12/20 03/13/21 Aller
--- NOTE | 2022-04-23 16:19 | PC.NURSE ---
per ER MD has spoken with dr. castorena(hospitalist), states he is going to come down and see pt.
[2022-04-23 16:27] LABS: Coronavirus 19, PCR Not Detected (NotDetected); Influenza A, PCR Not Detected (NotDetected); Influenza B, PCR Not Detected (NotDetected)
--- NOTE | 2022-04-23 16:31 | PC.NURSE ---
dr. castorena (hospitalist) at BS
--- NOTE | 2022-04-23 16:45 | PC.NURSE ---
notified mix house tender of admission
--- NOTE | 2022-04-23 16:51 | PC.NURSE ---
Pt assigned to room 209
--- NOTE | 2022-04-23 17:19 | EXP.HP ---
History of Present Illness *Admission Date: 04/23/22 *Reason for visit:: Epistasis *History of present illness: 77-year-old male with pancytopenia and frequent nosebleeds from a perforated septum presenting to the emergency department with fatigue and weakness and continued epistasis. On evaluation in the emergency department patient was found to be significantly anemia with hemoglobin 5.9. Patient has an active bleed coming from his anterior naris has not resolved with pressure. Patient follows an oncologist at [facility] and sees ENT at [facility]. Patient is being admitted for symptomatic anemia with active bleed. PFSH PFS Social History Smoking Status: Never smoker alcohol intake: never substance use type: denies use current occupational status: retired Travel in the last 8 weeks: None household members: spouse housing: house caffeine: Yes Review of Systems Constitutional Constitutional: Denies headache(s) and Denies weakness ENT Ears, Nose, Mouth, and Throat: Reports system reviewed and no additional complaints, except as documented and Denies headache(s) *Cardiovascular Cardiovascular: Reports system reviewed and no additional complaints, except as documented *Respiratory Respiratory: Reports system reviewed and no additional complaints, except as documented *Gastrointestinal Gastrointestinal: Reports system reviewed and no additional complaints, except as documented *Genitourinary Genitourinary: Reports system reviewed and no additional complaints, except as documented *Musculoskeletal Musculoskeletal: Reports system reviewed and no additional complaints, except as documented and Denies numbness Integumentary/Breasts Skin/Breast: Reports system reviewed and no additional complaints, except as documented *Neurologic Neurologic: Reports system reviewed and no additional complaints, except as documented, Denies headache(s), Denies numbness and Denies weakness Psychiatric Psychiatric: Reports system reviewed and no additional complaints, except as documented Endocrine Endocrine: Reports system reviewed and no additional complaints, except as documented Meds Home Medications and Allergies Home Medications Medication Instructions Recorded Confirmed Type atorvastatin 40 mg tablet 40 mg PO HS Cholesterol 09/29/17 04/23/22 History carvedilol 25 mg tablet 12.5 mg PO BID blood pressure 09/29/17 04/23/22 History furosemide 40 mg tablet 80 mg PO BID Fluid 09/29/17 03/13/21 History potassium chloride 20 mEq oral 20 meq PO TID Supplement 09/29/17 04/23/22 History packet (Klor-Con) ferrous gluconate 324 mg (38 mg 324 mg PO DAILY anemia 10/13/17 04/23/22 History iron) tablet alendronate 35 mg tablet 35 mg PO WEEKLY Osteoporosis 11/12/20 04/23/22 History apixaban 5 mg (74 tabs) tablets in 2.5 mg PO BID Blood thinner 11/12/20 04/23/22 History a dose pack cholecalciferol (vitamin D3) 1,250 50,000 unit PO WEEKLY Supplement 11/12/20 04/23/22 History mcg (50,000 unit) capsule metformin 500 mg tablet,extended 500 mg PO QID Diabetes 11/12/20 04/23/22 History release 24 hr multivitamin 1 each PO DAILY Supplement 11/12/20 03/13/21 History sotalol 80 mg tablet 80 mg PO DAILY heart 11/12/20 04/23/22 History aspirin 81 mg tablet 81 mg PO DAILY heart 04/23/22 04/23/22 History empagliflozin 10 mg tablet 10 mg PO DAILY Diabetes 04/23/22 04/23/22 History (Jardiance) gabapentin 100 mg capsule 200 mg PO Q8H Pain 04/23/22 04/23/22 History insulin glargine 100 unit/mL (3 35 unit SQ HS Diabetes 04/23/22 04/23/22 History mL) subcutaneous pen (Lantus Solostar U-100 Insulin) omeprazole 40 mg capsule,delayed 40 mg PO DAILY stomach 04/23/22 04/23/22 History release oxycodone-acetaminophen 10 mg-325 1 tab PO Q4H PRN Pain 04/23/22 04/23/22 History mg tablet sacubitril 49 mg-valsartan 51 mg 1 tab PO Q12H Hypertension 04/23/22 04/23/22 History tablet (Entresto) temazepam 30 mg capsule 30 mg PO HS sleep 03/30
--- NOTE | 2022-04-23 17:38 | PC.NURSE ---
report called to lorinrn on second floor at this time states she will send staff down to transport pt
--- NOTE | 2022-04-23 18:09 | PC.NURSE ---
lab called stating blood is ready for pt, notified pt receiving nurse on second floor luis a padgettinternational account representative aware that blood is ready, states okay for blood to be started when pt gets to second floor as staff is on their way down to get pt
--- NOTE | 2022-04-23 18:17 | PC.NURSE ---
Pt arrived to the floor at this time
--- NOTE | 2022-04-23 19:37 | PC.NURSE ---
pt has a steady trickle of bleeding out of his left nare which he states has been present since . this is not the first time this has happened and he has received blood a month ago. rbka is intact. fsbs achs @ home
[2022-04-24] VITALS (19 sets, daily range): BP systolic 119–154; BP diastolic 61–79; PULSE 74–88; RESP 16–18; TEMP 36.6–36.8; O2SAT 94–97; BMI 31.5
[2022-04-24 03:48] LABS: Hemoglobin 6.9 g/dL (14.1-18.0)
[2022-04-24 03:49] LABS: Hematocrit 21.9 % (42.0-52.0)
--- NOTE | 2022-04-24 08:57 | PC.NURSE ---
LATE ENTRY (for 629) - Third unit of prbcs infusing. Pt has tolerated well. No signs or symptoms of transfusion reaction thus far. Pt has had no c/o. Pt has had a slow trickling nose bleed. Afrin used per MAR and gauze used to apply internal pressure. Pt states he has not had anymore bleeding since 0600. Call light in reach. No needs voiced by pt at this time.
[2022-04-24 10:12] LABS: Basophils % 0.4 % (0.1-2.0); Eosinophils # 0.2 K/mm3 (0.0-0.4); Eosinophils % 8.3 % (0.1-12.0); Hematocrit 26.7 % (42.0-52.0); Lymphocytes # 0.8 K/mm3 (0.7-4.5); Lymphocytes % 44.4 % (10-50); Mean Corpuscular HGB Conc 32.1 g/dL (31.8-35.4); Mean Corpuscular Hemoglobin 30.2 pg (27.0-31.2); Mean Platelet Volume 12.4 fl (7.4-10.4); Monocytes # 0.1 K/mm3 (0.1-1.0); Monocytes % 7.9 % (1.7-9.3); Neutrophils # 0.7 K/mm3 (1.8-7.8); Neutrophils % 38.9 % (37.0-80.0); Red Blood Count 2.84 M/mm3 (4.60-6.20); Red Cell Distribution Width 19.8 % (11.5-17.5); White Blood Count 1.8 K/mm3 (4.8-10.8)
[2022-04-24 10:16] LABS: Chloride 102 mmol/L (98-107); Potassium 4.5 mmoL/L (3.5-5.1); Sodium 137 mmol/L (136-145)
[2022-04-24 10:19] LABS: Anion Gap 10.5 mEq/L (5-15); Blood Urea Nitrogen 39 mg/dl (9-20); Carbon Dioxide 29 mmol/L (22.0-30.0); Creatinine Clearance Estimated 61 mL/min (50-200); Estimated Glomerular Filt Rate 46 ml/min (>60); GFR (African American) 55 ML/MIN (>60); Phosphorous 4.1 mg/dl (2.5-4.5)
[2022-04-24 10:20] LABS: Calcium 9.2 mg/dl (8.4-10.2); Glucose 169 mg/dl (74-100); Magnesium 1.9 mg/dl (1.6-2.3)
[2022-04-24 10:22] LABS: Platelet Count 20 K/mm3 (142-424)
--- NOTE | 2022-04-24 10:23 | HMH.PHAINT1 ---
Pharmacy Intervention Comments: MEDICATION RECONCILIATION COMPLETED ON PATIENT USING EXTERNAL FILL HISTORY FROM PHARMACY AND DIPIKA REPORT. -CINTHYA VILLELA, MINNIED
--- NOTE | 2022-04-24 10:29 | PC.NURSE ---
[facility] 207
[2022-04-24 10:38] LABS: POC Glucose,Bedside 207 (70-110)
[2022-04-24 11:35] LABS: Hemoglobin 8.8 g/dL (14.1-18.0)
--- NOTE | 2022-04-24 11:53 | EXP.DC.SUM ---
General Admission date:: 04/23/22 Discharge date: 04/24/22 HPI HPI HPI: 77-year-old male with pancytopenia and frequent nosebleeds from a perforated septum presenting to the emergency department with fatigue and weakness and continued epistasis. On evaluation in the emergency department patient was found to be significantly anemia with hemoglobin 5.9. Patient has an active bleed coming from his anterior naris has not resolved with pressure. [facility]. Patient is being admitted for symptomatic anemia with active bleed. Hospital Course Hospital Course Hospital Course: Patient was admitted for symptomatic anemia and blood loss from his anterior left nares. Patient was given Afrin which stopped the bleeding from his nose. Due to anemia patient ended up receiving 3 units of packed red blood cells. He is no longer symptomatic and significantly improved clinically. Blood counts were stable so patient was discharged. Platelet count is approaching 20 but he is no longer actively bleeding so no indication for platelet transfusion. However at our facility we do not have platelets to transfuse. Advised and counseled patient to follow-up with his primary care physician for repeat blood draw to assess his hemoglobin status and his platelets. Recommend if his hemoglobin significantly decreases or his platelets decreased less than 10 he needs a platelet transfusion due to increased risk of intracranial bleed. Recommend follow-up with primary care physician and supervisor concrete stone fabricating on outpatient basis Exam Data for Last 24 hours Vital signs and Labs for Last 24 Hours: Temp Pulse Resp BP Pulse Ox 98.1 F 87 16 144/66 H 96 04/24/22 08:25 04/24/22 08:25 04/24/22 08:25 04/24/22 08:25 04/24/22 08:25 Laboratory Results - last 24 hr 04/23/22 14:00: WBC 2.2 L, RBC 1.86 L*, Hgb 6.0 L*, Hct 18.9 L*, MCV 101.9 H, MCH 31.8 H, MCHC 31.2 L, RDW 21.4 H, Plt Count 28 L*, MPV 12.9 H, Neut % (Auto) 35.9 L, Lymph % (Auto) 49.6, Colquitt % (Auto) 5.4, Eos % (Auto) 8.9, Baso % (Auto) 0.2, Neut # (Auto) 0.8 L*, Lymph # (Auto) 1.1, Colquitt # (Auto) 0.1, Eos # (Auto) 0.2, Baso # (Auto) 0.0 04/23/22 14:00: Sodium 136, Potassium 5.2 H, Chloride 99, Carbon Dioxide 24, Anion Gap 18.2 H, BUN 34 H, Creatinine 1.50 H, Estimated Creat Clear 73, Estimated GFR 46 L, Est GFR ( Amer) 55 L, Glucose 138 H, Calcium 9.5, Total Bilirubin 0.9, AST 22, ALT 18, Alkaline Phosphatase 103, Total Protein 6.5, Albumin 4.1, Globulin 2.4, Albumin/Globulin Ratio 1.7 04/23/22 16:25: SARS-CoV-2 (PCR) Not detected, Influenza A Untype (PCR) Not detected, Influenza Type B (PCR) Not detected 04/23/22 16:30: Blood Type A Negative, Antibody Screen Negative, Crossmatch (AHG) See Detail 04/24/22 03:40: Hgb 6.9 L, Hct 21.9 L 04/24/22 10:00: WBC 1.8 L*, RBC 2.84 L D, Hgb 8.8 L D, Hct 26.7 L, MCV 94.0, MCH 30.2, MCHC 32.1, RDW 19.8 H, Plt Count 20 L* D, MPV 12.4 H, Neut % (Auto) 38.9, Lymph % (Auto) 44.4, Colquitt % (Auto) 7.9, Eos % (Auto) 8.3, Baso % (Auto) 0.4, Neut # (Auto) 0.7 L*, Lymph # (Auto) 0.8, Colquitt # (Auto) 0.1, Eos # (Auto) 0.2, Baso # (Auto) 0.0 04/24/22 10:00: Sodium 137, Potassium 4.5, Chloride 102, Carbon Dioxide 29, Anion Gap 10.5, BUN 39 H, Creatinine 1.50 H, Estimated Creat Clear 61, Estimated GFR 46 L, Est GFR ( Amer) 55 L, Glucose 169 H D, Calcium 9.2, Phosphorus 4.1, Magnesium 1.9 04/24/22 10:28: POC Glucose 207 H I & O for Last 24 hours: Intake & Output 11/24/22 11/25/22 11/26/22 11/27/22 23:59 23:59 23:59 23:59 Intake Total 730 / 730 980 / 980 Output Total 300 / 300 600 / 600 Balance 430 / 430 380 / 380 Weight 101.208 kg 102.257 kg Constitutional Constitutional: no acute distress Comments: Improved pallor. Improved weakness *Routine Neck Exam Neck: Present supple and full ROM; Absent JVD *Routine Respiratory Exam Respiratory: Present able to speak in complete sentences; Absent accessory muscle
--- NOTE | 2022-04-25 15:26 | CARE MANAGER ---
Called and spoke with Alejandro Christiano regarding post discharge status. Patient states that he is doing well and has no issues to report at time of call.
== END 2022-04-24 13:25 | disposition home or self-care (01) ==
LOC: ER 16:20 → 2ND 16:59
PROVIDERS: Admitting Provider Student in an Organized Health Care Education/Training Program; Emergency Provider Emergency Medicine; PCP Family Medicine; Visit Provider Student in an Organized Health Care Education/Training Program
DX: R04.0 Epistaxis (principal); J34.89 Other specified disorders of nose and nasal sinuses; Z79.899 Other long term (current) drug therapy; Z79.4 Long term (current) use of insulin; Z79.01 Long term (current) use of anticoagulants; I25.10 Atherosclerotic heart disease of native coronary artery without angina pectoris; I10 Essential (primary) hypertension; D64.9 Anemia, unspecified; Z20.822 Contact with and (suspected) exposure to COVID-19
CPT/HCPCS: G0378; 36415; 80048; 80053; 82962; 83735; 84100; 85014; 85018; 85025; 86850; 99285; C9803; P9016; U0003; U0005

== ENCOUNTER → 2022-05-04 14:17 | Outpatient (CLI) | payer MEDICARE, MEDICAID, SELFPAY ==
--- NOTE | 2022-05-04 14:27 | MR_ITS ---
PROCEDURE INFORMATION: Exam: MR Right Lower Extremity Without Contrast, Tibia Fibula Exam date and time: 05/04/2022 2:58 PM Age: 77 years old Clinical indication: Prior surgery; Surgery date: 6+ months; Surgery type: Amputation February 2021; Patient HX: R/O osteomyelitis. Pain to site , not healing right since surgery in feb 2021 TECHNIQUE: Imaging protocol: Magnetic resonance imaging of the Right lower extremity without contrast. Exam focused on the tibia and fibula. COMPARISON: US ARTERIAL LOWER EXT REST 03/15/2021 7:16 AM FINDINGS: Bones/joints: Postoperative changes are visualized, with a right [id number] amputation. Mild STIR hyperintense/T1 hypointense edema is identified within the tibial shaft at the postsurgical site. This can be contributed by postoperative change, but is concerning for osteomyelitis in the appropriate clinical setting. Minimal patellofemoral joint effusion. Increased signal intensity is visualized within the posterior body/posterior horn of the medial meniscus, and meniscal tear is suggested. Evaluation of the menisci is technically limited. Tear of the lateral meniscus is not well-defined. Synovial and meniscal cysts: No significant Santacruz's cyst visualized. Ligaments: Evaluation of the knee is limited by field of view, although there is no visualized tear of the cruciate or collateral ligaments of the knee. No visualized tear of the patellar tendon or distal quadriceps tendon. Muscles: Muscle atrophy visualized. Mild patchy muscle edema below the level of the knee. Differential considerations include trauma, myositis, inflammatory myopathies, rhabdomyolysis, and vascular causes. Soft tissues: Mild soft tissue swelling of the stump. A small amount of swelling or fluid is visualized of the distal stump. Evaluation for abscess is limited by the absence of postcontrast images. Minimal fluid within the deep infrapatellar bursa. IMPRESSION: 1. Postoperative changes are visualized, with a right jmnyb-yle-juja amputation. 2. Mild marrow edema is identified within the tibial shaft at the postsurgical site. This can be contributed by postoperative change, but is concerning for osteomyelitis in the appropriate clinical setting. Clinical correlation is recommended. 3. Mild soft tissue swelling of the stump. A small amount of swelling or fluid is visualized of the distal stump, which is likely postoperative or infectious. This can be further evaluated with postcontrast images. 4. Mild patchy muscle edema below the level of the knee. Differential considerations include trauma, myositis, inflammatory myopathies, rhabdomyolysis, and vascular causes. 5. Minimal patellofemoral joint effusion. 6. Increased signal intensity is visualized within the posterior body/posterior horn of the medial meniscus, and meniscal tear is suggested. 7. Additional findings described above.
== END ==
PROVIDERS: PCP Family Medicine; Visit Provider Thoracic Surgery (Cardiothoracic Vascular Surgery)
DX: M86.161 Other acute osteomyelitis, right tibia and fibula (principal)
CPT/HCPCS: 73718

== ENCOUNTER 2022-05-16 14:29 | Observation (INO) | payer MEDICARE, MEDICAID, SELFPAY ==
[2022-05-16] VITALS (10 sets, daily range): BP systolic 101–122; BP diastolic 43–76; PULSE 84–94; RESP 16–18; TEMP 36.6–37.1; O2SAT 96–100; BMI 31.1
--- NOTE | 2022-05-16 14:59 | PC.NURSE ---
pt's vitals and history obtained in triage area as we wait for a room. Spouse with patient. ER MD aware of patients history and is going to evaluate him shortly. Vitals put in chart.
--- NOTE | 2022-05-16 15:22 | XR_ITS ---
FINAL REPORT CLINICAL HISTORY: concern for L foot osteo, great toe and medial side- cellulitis FINDINGS: LEFT FOOT Three views of the left foot demonstrate no acute fracture or dislocation. No bony erosion is identified. The joint spaces are preserved. T there are mild vascular calcifications. IMPRESSION: No acute bony abnormality. No bony erosion identified. Reviewed, Interpreted and Dictated by Rolando Anderson III, MD Transcribed by Naa Klein Authenticated and [facility]
--- NOTE | 2022-05-16 15:37 | HMH.EDGENADL ---
Discharge Plan Disposition Patient Disposition: Admitted As Inpatient Condition: Fair Clinical Impressions Clinical Impression: Lymphangitis Discharge ED Provider: Prabhu Evans General Adult HPI General Chief complaint: Skin/Abscess/Foreign Body Stated complaint: LT leg pain red streaks no accident Time Seen by Provider: 05/16/22 14:38 Mode of Arrival: Ambulatory Source of Information: Patient Limitations: No Limitations History of Present Illness HPI narrative: This is a 77-year-old male with history of COPD, diabetes, hypertension, peripheral arterial disease currently on Xarelto, status post right BKA who is presenting with left foot pain. Patient states that he has had increasingly severe left foot pain for the past 2 or 3 days. Today, he noticed that he had redness in his toes, and red streaking up his left leg. Pain is 10 out of 10, stabbing, throbbing, made worse with palpation, not made any better with any interventions. Denies fevers, chills, nausea, vomiting, changes in medications, shortness of breath, or any other concerning history. Related Data Home Medications Medication Instructions Recorded Confirmed atorvastatin 40 mg tablet 40 mg PO HS Cholesterol 09/29/17 04/23/22 furosemide 40 mg tablet 40 mg PO DAILY Fluid 09/29/17 04/24/22 ferrous gluconate 324 mg (38 mg 324 mg PO DAILY anemia 10/13/17 04/23/22 iron) tablet alendronate 35 mg tablet 35 mg PO WEEKLY Osteoporosis 11/12/20 04/23/22 cholecalciferol (vitamin D3) 1,250 50,000 unit PO WEEKLY Supplement 11/12/20 04/23/22 mcg (50,000 unit) capsule metformin 500 mg tablet,extended 1,000 mg PO BID Diabetes 11/12/20 04/24/22 release 24 hr sotalol 80 mg tablet 80 mg PO BID Hypertension 11/12/20 04/24/22 empagliflozin 10 mg tablet 10 mg PO DAILY Diabetes 04/23/22 04/23/22 (Jardiance) insulin glargine 100 unit/mL (3 35 unit SQ HS Diabetes 04/23/22 04/23/22 mL) subcutaneous pen (Lantus Solostar U-100 Insulin) omeprazole 40 mg capsule,delayed 40 mg PO DAILY GERD 04/23/22 04/23/22 release sacubitril 49 mg-valsartan 51 mg 1 tab PO BID CHF 04/23/22 04/24/22 tablet (Entresto) temazepam 30 mg capsule 30 mg PO HS sleep 04/23/22 04/23/22 apixaban 2.5 mg tablet (Eliquis) 2.5 mg PO BID AFIB 04/24/22 04/24/22 aspirin 81 mg tablet,delayed 81 mg PO DAILY HEART HEALTH 04/24/22 04/24/22 release carvedilol 12.5 mg tablet 12.5 mg PO BID Hypertension 04/24/22 04/24/22 duloxetine 60 mg capsule,delayed 60 mg PO DAILY MOOD 04/24/22 04/24/22 release potassium chloride 20 mEq 20 meq PO DAILY Supplement 04/24/22 04/24/22 tablet,extended release(part/cryst) Previous Rx's Medication Instructions Recorded oxymetazoline 0.05 % nasal spray 1 spray intranasal BIDP PRN 04/24/22 (Afrin (oxymetazoline)) Nosebleed 30 days #22 mL Allergies Allergy/AdvReac Type Severity Reaction Status Date / Time Penicillins [PENICILLINS] AdvReac Mild Other Verified 03/15/21 10:32 [facility] Disclaimer: The information contained in this section may have been updated after the patient was seen, as this information can be updated by other users. Medical History (Updated 05/16/22 @ 19:22 by Prabhu Evans MD) Congestive heart failure Crushing injury of left ankle History of heart attack Hypertension Surgical History History of quadruple bypass Hx of right BKA Previous back surgery Family History (Updated 04/23/22 @ 18:53 by Mary Tinoco RN) Other Family history of diabetes mellitus type II Social History Smoking Status: Never smoker alcohol intake: never substance use type: denies use current occupational status: retired Travel in the last 8 weeks: None household members: spouse housing: house caffeine: Yes ROS Obtained: Yes All systems reviewed & no additional complaints except as documented Physical Exam General General appearance: alert and in no apparent distress
--- NOTE | 2022-05-16 15:41 | EXP.PHA.CONS ---
Pharmacy Consult Date: 05/16/22 Time: 15:41 Referring provider: DR. CESAR Reason for Consult:: VANCOMYCIN DOSING Allergies Allergy/AdvReac Type Severity Reaction Status Date / Time Penicillins [PENICILLINS] AdvReac Mild Other Verified 03/15/21 10:32 Home Medications Medication Instructions Recorded Confirmed Type atorvastatin 40 mg tablet 40 mg PO HS Cholesterol 09/29/17 04/23/22 History furosemide 40 mg tablet 40 mg PO DAILY Fluid 09/29/17 04/24/22 History ferrous gluconate 324 mg (38 mg 324 mg PO DAILY anemia 10/13/17 04/23/22 History iron) tablet alendronate 35 mg tablet 35 mg PO WEEKLY Osteoporosis 11/12/20 04/23/22 History cholecalciferol (vitamin D3) 1,250 50,000 unit PO WEEKLY Supplement 11/12/20 04/23/22 History mcg (50,000 unit) capsule metformin 500 mg tablet,extended 1,000 mg PO BID Diabetes 11/12/20 04/24/22 History release 24 hr sotalol 80 mg tablet 80 mg PO BID Hypertension 11/12/20 04/24/22 History empagliflozin 10 mg tablet 10 mg PO DAILY Diabetes 04/23/22 04/23/22 History (Jardiance) insulin glargine 100 unit/mL (3 35 unit SQ HS Diabetes 04/23/22 04/23/22 History mL) subcutaneous pen (Lantus Solostar U-100 Insulin) omeprazole 40 mg capsule,delayed 40 mg PO DAILY GERD 04/23/22 04/23/22 History release sacubitril 49 mg-valsartan 51 mg 1 tab PO BID CHF 04/23/22 04/24/22 History tablet (Entresto) temazepam 30 mg capsule 30 mg PO HS sleep 04/23/22 04/23/22 History apixaban 2.5 mg tablet (Eliquis) 2.5 mg PO BID AFIB 04/24/22 04/24/22 History aspirin 81 mg tablet,delayed 81 mg PO DAILY HEART HEALTH 04/24/22 04/24/22 History release carvedilol 12.5 mg tablet 12.5 mg PO BID Hypertension 04/24/22 04/24/22 History duloxetine 60 mg capsule,delayed 60 mg PO DAILY MOOD 04/24/22 04/24/22 History release oxymetazoline 0.05 % nasal spray 1 spray intranasal BIDP PRN 04/24/22 Rx (Afrin (oxymetazoline)) Nosebleed 30 days #22 mL potassium chloride 20 mEq 20 meq PO DAILY Supplement 04/24/22 04/24/22 History tablet,extended release(part/cryst) New Prescriptions to Start Prescriptions: Height: 1.8 m Weight: 101.151 kg Laboratory Results:: D Medical History: Medical History (Updated 04/23/22 @ 18:53 by Mary Tinoco RN) Congestive heart failure Crushing injury of left ankle History of heart attack Hypertension Assessment and Plan Assessment and plan all Dx Assessment and Plan for all problems:: Pharmacokinetic dosing service Age: 77 yo Serum creatinine: 1.5 mg/dL Height: 71.0 Inches Weight (kg): 101.151 IBW (kg): 70.80 Dosing wt(kg): 101.151 Estimated Creatinine clearance (ml/min): 35.7 CRCL method: Cockcroft and Gault using ibw(default). Drug selected: Vancomycin Loading dose (mg): 0 Vd (liters): 80.9 (factor used: 0.8 L/kg) Reggie (hr-1): 0.034 Half life (hrs): 20.39 Recommended dose: 1500 mg Interval: 24 hrs Infusion time (hrs): 2.0 Predicted peak (mcg/mL): 32.1 Predicted trough (mcg/mL): 15.19 Total body weight is being used for vancomycin dosing. Recommendations: Give Vancomycin 1500 mg q 24 hrs with an expected Cpeak of 32.1 mcg/ml and an expected Ctrough of 15.19 mcg/ml ----Vanco only - ignore for aminoglycosides----- CLvanco= 2.75 L/hr AUC 0-24 /MILLICENT Data: MILLICENT 0.5 mcg/mL: AUC/MILLICENT: 1090.9 MILLICENT 1.0 mcg/mL: AUC/MILLICENT: 545.5 --------- MILLICENT 1.5 mcg/mL: AUC/MILLICENT: 363.6 MILLICENT 2.0 mcg/mL: AUC/MILLICENT: 272.7
[2022-05-16 16:15] LABS: Basophils % 0.4 % (0.1-2.0); Eosinophils # 0.2 K/mm3 (0.0-0.4); Hematocrit 22.6 % (42.0-52.0); Hemoglobin 7.7 g/dL (14.1-18.0); Lymphocytes # 0.7 K/mm3 (0.7-4.5); Lymphocytes % 35.4 % (10-50); Mean Corpuscular HGB Conc 34.3 g/dL (31.8-35.4); Mean Corpuscular Hemoglobin 31.5 pg (27.0-31.2); Mean Corpuscular Volume 91.8 fl (80-94); Mean Platelet Volume 12.6 fl (7.4-10.4); Monocytes # 0.1 K/mm3 (0.1-1.0); Neutrophils % 50.2 % (37.0-80.0); Red Blood Count 2.46 M/mm3 (4.60-6.20); Red Cell Distribution Width 23.1 % (11.5-17.5); White Blood Count 2.1 K/mm3 (4.8-10.8)
[2022-05-16 16:19] LABS: Anion Gap 12.6 mEq/L (5-15); Blood Urea Nitrogen 28 mg/dl (9-20); Calcium 8.9 mg/dl (8.4-10.2); Carbon Dioxide 28 mmol/L (22.0-30.0); Chloride 100 mmol/L (98-107); Creatinine Clearance Estimated 56 mL/min (50-200); Estimated Glomerular Filt Rate 42 ml/min (>60); GFR (African American) 51 ML/MIN (>60); Glucose 228 mg/dl (74-100); Potassium 4.6 mmoL/L (3.5-5.1); Sodium 136 mmol/L (136-145)
[2022-05-16 16:24] LABS: C-Reactive Protein 39.3 mg/L (0-4)
[2022-05-16 16:46] LABS: Platelet Count 31 K/mm3 (142-424)
[2022-05-16 17:01] LABS: Erythrocyte Sedimentation Rate > 140 mm/hr (0-20)
--- NOTE | 2022-05-16 17:10 | PC.NURSE ---
HS aware of admission
[2022-05-16 17:35] LABS: Coronavirus 19, PCR Not Detected (NotDetected); Influenza A, PCR Not Detected (NotDetected); Influenza B, PCR Not Detected (NotDetected)
[2022-05-16 17:52] LABS: Lactic Acid 2.9 mmol/L (0.7-2.1)
--- NOTE | 2022-05-16 18:22 | PC.NURSE ---
patient arrived by wheelchair from ED
[2022-05-16 20:57] LABS: POC Glucose,Bedside 149 (70-110)
[2022-05-16 21:14] LABS: Reflex Lactic Add Lactic Reflex
--- NOTE | 2022-05-16 22:11 | EXP.HP ---
History of Present Illness *Admission Date: 05/16/22 *Reason for visit:: Pain, Redness Left Foot *History of present illness: Mr. Alvarado is a 77-year-old male with a past medical history that is positive for recent Right BKA, DM, CHF, CAD, Atrial Fibrillation on chronic anticoagulation, PAD, Anemia and Chronic Thrombocytopenia. He presents to [facility] through the ER with a 2 week period of left toe redness and a 2-3 day period of streaking redness up the leg associated with pain in the foot and leg. The patient was seen on the medical surgical unit following his admission. He denies injury to the area, he has scratches on the anterior lower left leg that he states came from puppies that have been present for over 2 weeks. He reports that due to the pain and redness that he came into the ER for evaluation. In the ER, the patient had a CRP that was elevated at 39.3. Xray of the foot showed no bony abnormalities. CBC showed an anemia with hgb at 7.7 and thrombocytopenia with platelets low at 31. On CMP creatinine was elevated at 1.60. The patient reports a history of MRSA skin infection in the past. The patient will be admitted with initial impression: LLE cellulitis. He will be placed on antibiotics to cover for Strep and MRSA. He reports he saw Hematology at [facility] with [place] and Vascular with [facility] in [place], records will be requested from these visits. Podiatry will be consulted to evaluate the patient and JOHN will be ordered. The plan of care was discussed with the patient and his in length and detail at bedside on admission. Both verbalized understanding and agreement with the plan of care. [facility] Disclaimer: The information contained in this section may have been updated after the patient was seen, as this information can be updated by other users. Medical History (Updated 05/17/22 @ 09:02 by Meryl Plata DPM) Atrial fibrillation CAD (coronary artery disease) Congestive heart failure Crushing injury of left ankle Diabetes History of heart attack Hypertension PAD (peripheral artery disease) Surgical History History of quadruple bypass Hx of right BKA Previous back surgery Family History Other Family history of diabetes mellitus type II Social History Smoking Status: Never smoker alcohol intake: never substance use type: denies use current occupational status: retired Travel in the last 8 weeks: None household members: spouse housing: house caffeine: Yes Review of Systems Review of Systems Review of systems:: pertinent systems reviewed and negative unless documented below Constitutional Constitutional: Reports system reviewed and no additional complaints, except as documented Eyes Eyes: Reports system reviewed and no additional complaints, except as documented ENT Ears, Nose, Mouth, and Throat: Reports system reviewed and no additional complaints, except as documented *Cardiovascular Cardiovascular: Reports system reviewed and no additional complaints, except as documented *Respiratory Respiratory: Reports system reviewed and no additional complaints, except as documented *Gastrointestinal Gastrointestinal: Reports system reviewed and no additional complaints, except as documented *Genitourinary Genitourinary: Reports system reviewed and no additional complaints, except as documented *Musculoskeletal Comments: Right BKA Integumentary/Breasts Skin/Breast: Reports system reviewed and no additional complaints, except as documented *Neurologic Neurologic: Reports system reviewed and no additional complaints, except as documented Psychiatric Psychiatric: Reports system reviewed and no additional complaints, except as documented Endocrine Endocrine: Reports system reviewed and no additional
[2022-05-16 22:41] LABS: Iron 113 ug/dL (49-181)
[2022-05-16 22:51] LABS: Total Iron Binding Capacity 253 ug/dL (261-462)
[2022-05-16 23:06] LABS: Reflex Lactic (2 hrs) Add Lactic Reflex
[2022-05-16 23:37] LABS: Vitamin B12 984 pg/mL (239-931)
[2022-05-17 00:15] LABS: Lactic Acid Follow up (RFLX 2) 2.4 mmol/L (0.7-2.1)
--- NOTE | 2022-05-17 03:03 | PC.NURSE ---
Pt in bed with spouse at bedside. Pt has been A/O x 4. IV in RAC is patent and SL. Resp have been even and non labored, lungs were clear this morning. Pt has denied any pain in left foot. Top of foot is red and streaked , improvement noted this morning in color. Pt has been educated on medications and Plan of care. Had heartburn this morning, pt given Maalox. Bed locked in low position, side rails up x 2, call light within reach, encouraged pt to call for needs.
[2022-05-17 04:00] VITALS: BP 109/53; PULSE 95; RESP 18; TEMP 36.8; O2SAT 95; BMI 31.1
[2022-05-17 06:15] LABS: POC Glucose,Bedside 263 (70-110)
--- NOTE | 2022-05-17 06:19 | CT_ITS ---
FINAL REPORT TECHNIQUE: Thin section axial images were obtained through the left foot lower extremity without contrast. Reconstruction images were obtained from the axial data. Exam was performed using dose reduction technique. CLINICAL HISTORY: PAD, L foot r/o Osteo COMPARISON: Plain radiographs of the left foot dated 05/16/2022 FINDINGS: Please note that the sagittal reconstruction images only include the forefoot. There is no acute fracture or dislocation. No bone destruction is visualized. There is osteopenia and multi joint degenerative disease. The Lisfranc articulation is intact. There may be a small erosion at the tip of the lateral malleolus. There is an abnormal appearance and location of the peroneus brevis tendon which appears to be anterior to the lateral malleolus. The soft tissues of the foot without discrete abnormality. There is no loculated fluid collection or subcutaneous air. Vascular calcifications are noted. IMPRESSION: No acute osseous abnormality of the imaged portion of the left foot. No bone destruction. No evidence of abscess or subcutaneous air. Authenticated and ERN
[2022-05-17 06:58] LABS: Basophils % 0.5 % (0.1-2.0); Eosinophils # 0.1 K/mm3 (0.0-0.4); Eosinophils % 8.5 % (0.1-12.0); Lymphocytes # 0.6 K/mm3 (0.7-4.5); Lymphocytes % 38.7 % (10-50); Mean Corpuscular HGB Conc 34.8 g/dL (31.8-35.4); Mean Corpuscular Hemoglobin 31.4 pg (27.0-31.2); Mean Corpuscular Volume 90.2 fl (80-94); Mean Platelet Volume 13.5 fl (7.4-10.4); Monocytes # 0.1 K/mm3 (0.1-1.0); Monocytes % 6.2 % (1.7-9.3); Neutrophils # 0.7 K/mm3 (1.8-7.8); Neutrophils % 46.2 % (37.0-80.0); Red Blood Count 1.96 M/mm3 (4.60-6.20); Red Cell Distribution Width 23.1 % (11.5-17.5); White Blood Count 1.5 K/mm3 (4.8-10.8)
[2022-05-17 07:01] LABS: Chloride 102 mmol/L (98-107); Potassium 4.3 mmoL/L (3.5-5.1); Sodium 137 mmol/L (136-145)
[2022-05-17 07:03] LABS: Blood Urea Nitrogen 25 mg/dl (9-20)
[2022-05-17 07:04] LABS: Alanine Aminotransferase 13 U/L (12-78); Albumin Level 3.5 g/dl (3.5-5.0); Albumin/Globulin Ratio 1.5 (1.1-1.8); Alkaline Phosphatase 128 U/L (38-126); Anion Gap 10.3 mEq/L (5-15); Aspartate Amino Transferase 16 U/L (17-59); Bilirubin,Total 0.5 mg/dl (0.2-1.3); Calcium 8.8 mg/dl (8.4-10.2); Carbon Dioxide 29 mmol/L (22.0-30.0); Creatinine Clearance Estimated 56 mL/min (50-200); Estimated Glomerular Filt Rate 42 ml/min (>60); GFR (African American) 51 ML/MIN (>60); Globulin 2.4 g/dL (1.3-3.2); Glucose 211 mg/dl (74-100); Hematocrit 17.7 % (42.0-52.0); Hemoglobin 6.2 g/dL (14.1-18.0); Magnesium 2.1 mg/dl (1.6-2.3); Total Protein,Serum 5.9 g/dl (6.3-8.2)
[2022-05-17 07:05] LABS: Platelet Count 23 K/mm3 (142-424)
[2022-05-17 07:12] LABS: C-Reactive Protein 47.2 mg/L (0-4)
[2022-05-17 08:00] VITALS: BP 106/55; PULSE 95; RESP 18; TEMP 36.5; O2SAT 98
[2022-05-17 08:10] LABS: Erythrocyte Sedimentation Rate > 140 mm/hr (0-20)
--- NOTE | 2022-05-17 08:18 | EXP.ORTH.CON ---
History of Present Illness *Admission Date: 05/16/22 *Reason for visit:: Left foot cellulitis *History of present illness: Mr. Alvarado is a 77-year-old male with a past medical history that is positive for recent Right BKA, DM, CHF, CAD, Atrial Fibrillation on chronic anticoagulation, PAD, Anemia and Chronic Thrombocytopenia. He presents to [facility] through the ER with a 2 week period of left toe redness and a 2-3 day period of streaking redness up the leg associated with pain in the foot and leg. The patient was seen on the medical surgical unit following his admission. He denies injury to the area, he has scratches on the anterior lower left leg that he states came from puppies that have been present for over 2 weeks. He reports that due to the pain and redness that he came into the ER for evaluation. In the ER, the patient had a CRP that was elevated at 39.3. Xray of the foot showed no bony abnormalities. CBC showed an anemia with hgb at 7.7 and thrombocytopenia with platelets low at 31. On CMP creatinine was elevated at 1.60. The patient reports a history of MRSA skin infection in the past. The patient will be admitted with initial impression: LLE cellulitis. He will be placed on antibiotics to cover for Strep and MRSA. He reports he saw Hematology at [facility] with [place] and Vascular with [facility] in [place], records will be requested from these visits. Podiatry will be consulted to evaluate the patient and JOHN will be ordered. The plan of care was discussed with the patient and his in length and detail at bedside on admission. Both verbalized understanding and agreement with the plan of care. Podiatry: HPI reviewed as above. Patient/ report history of right BKA February 2021. He is under the active care of Dr. Lund at [facility]. He had an MRI 05/04/2022 and has a follow-up 05/18/2022 to review with the vascular surgeon. Was admitted last night for left foot cellulitis. Denies any open wound or trauma to the left foot. Reports pain to the left big toe and medial foot. [facility] Disclaimer: The information contained in this section may have been updated after the patient was seen, as this information can be updated by other users. Medical History (Updated 05/17/22 @ 09:02 by Meryl Plata DPM) Atrial fibrillation CAD (coronary artery disease) Congestive heart failure Crushing injury of left ankle Diabetes History of heart attack Hypertension PAD (peripheral artery disease) Surgical History History of quadruple bypass Hx of right BKA Previous back surgery Family History Other Family history of diabetes mellitus type II Social History Smoking Status: Never smoker alcohol intake: never substance use type: denies use current occupational status: retired Travel in the last 8 weeks: None household members: spouse housing: house caffeine: Yes Review of Systems Review of Systems Review of systems:: pertinent systems reviewed and negative unless documented below Constitutional Constitutional: Reports system reviewed and no additional complaints, except as documented and Reports lethargy Eyes Eyes: Reports system reviewed and no additional complaints, except as documented ENT Ears, Nose, Mouth, and Throat: Reports system reviewed and no additional complaints, except as documented and Reports dry mouth *Cardiovascular Cardiovascular: Reports system reviewed and no additional complaints, except as documented and Reports pedal edema *Respiratory Respiratory: Reports system reviewed and no additional complaints, except as documented *Gastrointestinal Gastrointestinal: Reports system reviewed and no additional complaints, except as documented, Denies nausea and Denies vomiting *Genitourinary Genitourinary: Reports
--- NOTE | 2022-05-17 09:40 | PC.NURSE ---
Addendum entered by Sabiha Key RN 05/17/22 15:32: pt alert x4, lungs clear. rt BKA with open area on stub dsg cdi. on lt foot, all toes are red with streaks going up pts hayes. called lab for an update with blood, still waiting at this time. pt is resting well in room, c/o pain on rt foot. no pain meds ordered, sindler notified. cb and personal items within reach. Original Note: type and screen obtain, lab called, pt blood has antibodies. admin delayed, now waiting for blood.
--- NOTE | 2022-05-17 09:53 | EXP.PHA.CONS ---
Pharmacy Consult Date: 05/17/22 Time: 09:53 Referring provider: DR OCHOA Reason for Consult:: VANCOMYCIN DOSE CONSULT Allergies Allergy/AdvReac Type Severity Reaction Status Date / Time Penicillins [PENICILLINS] AdvReac Mild Other Verified 03/15/21 10:32 Home Medications Medication Instructions Recorded Confirmed Type atorvastatin 40 mg tablet 40 mg PO HS Cholesterol 09/29/17 05/17/22 History furosemide 40 mg tablet 40 mg PO DAILY Fluid 09/29/17 05/17/22 History alendronate 35 mg tablet 35 mg PO WEEKLY Osteoporosis 11/12/20 05/17/22 History metformin 500 mg tablet,extended 1,000 mg PO BID Diabetes 11/12/20 05/17/22 History release 24 hr sotalol 80 mg tablet 80 mg PO BID Hypertension 11/12/20 05/17/22 History empagliflozin 10 mg tablet 10 mg PO DAILY Diabetes/heart 04/23/22 05/17/22 History (Jardiance) failure insulin glargine 100 unit/mL (3 35 unit SQ HS Diabetes 04/23/22 05/17/22 History mL) subcutaneous pen (Lantus Solostar U-100 Insulin) omeprazole 40 mg capsule,delayed 40 mg PO DAILY GERD 04/23/22 04/23/22 History release sacubitril 49 mg-valsartan 51 mg 1 tab PO BID Heart failure 04/23/22 05/17/22 History tablet (Entresto) temazepam 30 mg capsule 30 mg PO HS sleep 04/23/22 05/17/22 History apixaban 2.5 mg tablet (Eliquis) 2.5 mg PO BID Atrial fib 04/24/22 05/17/22 History aspirin 81 mg tablet,delayed 81 mg PO DAILY HEART HEALTH 04/24/22 05/17/22 History release carvedilol 12.5 mg tablet 12.5 mg PO BID Hypertension 04/24/22 05/17/22 History duloxetine 60 mg capsule,delayed 60 mg PO DAILY Depression 04/24/22 05/17/22 History release oxymetazoline 0.05 % nasal spray 1 spray intranasal BIDP PRN 04/24/22 Rx (Afrin (oxymetazoline)) Nosebleed 30 days #22 mL potassium chloride 20 mEq 20 meq PO DAILY Potassium 04/24/22 05/17/22 History tablet,extended release(part/cryst) replacement diazepam 10 mg tablet 10 mg PO QIDP PRN Anxiety? 05/17/22 05/17/22 History New Prescriptions to Start Prescriptions: Height: 1.8 m Weight: 101.015 kg Laboratory Results:: Laboratory Results - last 24 hr 05/16/22 15:50: ESR > 140 H 05/16/22 15:50: C-Reactive Protein 39.3 H 05/16/22 15:50: WBC 2.1 L, RBC 2.46 L, Hgb 7.7 L, Hct 22.6 L, MCV 91.8, MCH 31.5 H, MCHC 34.3, RDW 23.1 H, Plt Count 31 L*, MPV 12.6 H, Neut % (Auto) 50.2, Lymph % (Auto) 35.4, [place] % (Auto) 3.0, Eos % (Auto) 11.0, Baso % (Auto) 0.4, Neut # (Auto) 1.0 L, Lymph # (Auto) 0.7, [place] # (Auto) 0.1, Eos # (Auto) 0.2, Baso # (Auto) 0.0 05/16/22 15:50: Sodium 136, Potassium 4.6, Chloride 100, Carbon Dioxide 28, Anion Gap 12.6, BUN 28 H, Creatinine 1.60 H, Estimated Creat Clear 56, Estimated GFR 42 L, Est GFR ( Amer) 51 L, Glucose 228 H, Calcium 8.9 05/16/22 15:50: Iron 113, TIBC 253 L, Iron Saturation 44.31140 05/16/22 15:50: Vitamin B12 984 H 05/16/22 17:15: Lactate 2.9 H 05/16/22 17:20: SARS-CoV-2 (PCR) Not detected, Influenza A Untype (PCR) Not detected, Influenza Type B (PCR) Not detected 05/16/22 19:49: POC Glucose 149 H 05/16/22 21:26: Lactate 3.0 H 05/16/22 23:21: Lactate 2.4 H 05/17/22 05:41: POC Glucose 263 H 05/17/22 06:43: WBC 1.5 L* D, RBC 1.96 L*, Hgb 6.2 L*, Hct 17.7 L*, MCV 90.2, MCH 31.4 H, MCHC 34.8, RDW 23.1 H, Plt Count 23 L* D, MPV 13.5 H, Neut % (Auto) 46.2, Lymph % (Auto) 38.7, [place] % (Auto) 6.2, Eos % (Auto) 8.5, Baso % (Auto) 0.5, Neut # (Auto) 0.7 L*, Lymph # (Auto) 0.6 L, [place] # (Auto) 0.1, Eos # (Auto) 0.1, Baso # (Auto) 0.0, ESR > 140 H 05/17/22 06:43: Sodium 137, Potassium 4.3, Chloride 102, Carbon Dioxide 29, Anion Gap 10.3, BUN 25 H, Creatinine 1.60 H, Estimated Creat Clear 56, Estimated GFR 42 L, Est GFR ( Amer) 51 L, Glucose 211 H, Calcium 8.8, Magnesium 2.1, Total Bilirubin 0.5, AST 16 L, ALT 13, Alkaline Phosphatase 128 H, C-Reactive Protein 47.2 H, Total Protein 5.9 L, Albumin 3.5, Globulin 2.4, Albumin/Globulin Ratio 1.5 05/17/22 07:45: Blood Type A Negative, Antibody Screen Positive, Crossmatch (AHG) See Detail
[2022-05-17 11:49] LABS: POC Glucose,Bedside 245 (70-110)
[2022-05-17 16:00] VITALS: BP 106/48; PULSE 91; RESP 16; TEMP 36.6; O2SAT 97
[2022-05-17 17:09] LABS: POC Glucose,Bedside 248 (70-110)
--- NOTE | 2022-05-17 17:11 | PC.NURSE ---
Jessica called from [facility], they still don't have any open beds.
[2022-05-17 20:00] VITALS: BP 115/64; PULSE 94; RESP 16; TEMP 36.9
--- NOTE | 2022-05-17 20:01 | EXP.PN ---
Subjective *Date: 05/17/22 *Time: 20:01 Interval history: No acute events overnight, patient reports feeling better today, no fever or pain and right BKA stump or left toe. Exam Data for Last 24 hours Vital signs and Labs for Last 24 Hours: Temp Pulse Resp BP Pulse Ox 97.9 F 91 H 16 106/48 L 97 05/17/22 16:00 05/17/22 16:00 05/17/22 16:00 05/17/22 16:00 05/17/22 16:00 Laboratory Results - last 24 hr 05/16/22 15:50: Iron 113, TIBC 253 L, Iron Saturation 44.20408 05/16/22 15:50: Vitamin B12 984 H 05/16/22 19:49: POC Glucose 149 H 05/16/22 21:26: Lactate 3.0 H 05/16/22 23:21: Lactate 2.4 H 05/17/22 05:41: POC Glucose 263 H 05/17/22 06:43: WBC 1.5 L* D, RBC 1.96 L*, Hgb 6.2 L*, Hct 17.7 L*, MCV 90.2, MCH 31.4 H, MCHC 34.8, RDW 23.1 H, Plt Count 23 L* D, MPV 13.5 H, Neut % (Auto) 46.2, Lymph % (Auto) 38.7, [place] % (Auto) 6.2, Eos % (Auto) 8.5, Baso % (Auto) 0.5, Neut # (Auto) 0.7 L*, Lymph # (Auto) 0.6 L, [place] # (Auto) 0.1, Eos # (Auto) 0.1, Baso # (Auto) 0.0, ESR > 140 H 05/17/22 06:43: Sodium 137, Potassium 4.3, Chloride 102, Carbon Dioxide 29, Anion Gap 10.3, BUN 25 H, Creatinine 1.60 H, Estimated Creat Clear 56, Estimated GFR 42 L, Est GFR ( Amer) 51 L, Glucose 211 H, Calcium 8.8, Magnesium 2.1, Total Bilirubin 0.5, AST 16 L, ALT 13, Alkaline Phosphatase 128 H, C-Reactive Protein 47.2 H, Total Protein 5.9 L, Albumin 3.5, Globulin 2.4, Albumin/Globulin Ratio 1.5 05/17/22 07:45: Blood Type A Negative, Antibody Screen Positive, Crossmatch (AHG) See Detail 05/17/22 11:39: POC Glucose 245 H 05/17/22 16:42: POC Glucose 248 H I & O for Last 24 hours: Intake & Output 05/14/22 05/15/22 05/16/22 05/17/22 23:59 23:59 23:59 23:59 Intake Total 921 / 921 Output Total 750 / 1050 1999 Balance -750 / -1050 -1079 / -1079 Weight 101.378 kg 101.015 kg Microbiology Reports for the Last 24 Hours: Microbiology 05/17/22 08:15 Leg,Right Gram Stain - Final Constitutional Constitutional: no acute distress Comments: Improved pallor. Improved weakness *Routine HEENT Exam Head: Present normocephalic and atraumatic Eye: Present EOMI and PERRL ENT: Present mucous membranes dry; Absent dentition normal *Routine Neck Exam Neck: Present supple and full ROM; Absent JVD *Routine Respiratory Exam Respiratory: Present able to speak in complete sentences; Absent accessory muscle use, wheezes or crackles *Routine Cardiovascular Exam Cardiovascular: Present RRR and murmur; Absent gallop *Routine Abdominal Exam Abdominal: Present soft; Absent tenderness, distended or rebound *Routine Extremities Exam Extremities: Absent cyanosis or edema Comments: s/p Right BKA, left big toe erythema with streaks extending proximally *Routine Skin Exam Skin: Present intact and cyanosis *Routine Neurological Exam Neurological: Present alert, oriented X3, moving all extremities and normal tone Routine Psychiatric Exam Psychiatric: Present normal affect, normal thought process, cooperative and good insight; Absent depressed or anxious Assessment and Plan *Assessment and plan (1) Peripheral arterial disease: Status: Acute Category: Medical Code(s): I73.9 - Peripheral vascular disease, unspecified (2) Diabetic peripheral neuropathy: Status: Chronic Category: Medical Code(s): E11.42 - Type 2 diabetes mellitus with diabetic polyneuropathy (3) History of MRSA infection: Status: Acute Category: Medical Code(s): Z86.14 - Personal history of Methicillin resistant Staphylococcus aureus infection (4) Cellulitis of left foot: Status: Acute Category: Medical Code(s): L03.116 - Cellulitis of left lower limb (5) Right BKA infection: Status: Acute Category: Medical Code(s): T87.43 - Infection of amputation stump, right lower extremity (6) Leg osteomyelitis, right: Status: Acute Category: Medical Code(s): M86.9 - Ost
[2022-05-17 21:13] LABS: POC Glucose,Bedside 250 (70-110)
[2022-05-18] VITALS (30 sets, daily range): BP systolic 117–160; BP diastolic 54–80; PULSE 58–105; RESP 16–18; TEMP 36.6–37.2; O2SAT 93–99; BMI 31.1; BMI 30.8
--- NOTE | 2022-05-18 02:44 | PC.NURSE ---
Pt is currently getting 1st unit of blood transfused. Pt has tolerated well. Lungs are clear, resp even and non labored. IV is patent, no complaints of pain. Pt will receive a 2nd unit of blood. Vitals have been within normal range. Pt was educated on s/sx of possible reactions to blood, pt verbalized understanding. Pt encouraged to report any possible reactions. Bed is locked in low position, side rails up x 2, call light in reach.
[2022-05-18 05:49] LABS: POC Glucose,Bedside 166 (70-110)
[2022-05-18 07:18] LABS: Basophils % 0.2 % (0.1-2.0); Eosinophils # 0.1 K/mm3 (0.0-0.4); Eosinophils % 8.2 % (0.1-12.0); Hemoglobin 7.7 g/dL (14.1-18.0); Lymphocytes # 0.6 K/mm3 (0.7-4.5); Lymphocytes % 40.3 % (10-50); Mean Corpuscular HGB Conc 35.2 g/dL (31.8-35.4); Mean Corpuscular Hemoglobin 31.7 pg (27.0-31.2); Mean Platelet Volume 13.5 fl (7.4-10.4); Monocytes # 0.1 K/mm3 (0.1-1.0); Monocytes % 5.3 % (1.7-9.3); Neutrophils # 0.7 K/mm3 (1.8-7.8); Red Blood Count 2.44 M/mm3 (4.60-6.20); Red Cell Distribution Width 21.7 % (11.5-17.5); White Blood Count 1.6 K/mm3 (4.8-10.8)
[2022-05-18 07:24] LABS: Chloride 106 mmol/L (98-107); Sodium 139 mmol/L (136-145)
[2022-05-18 07:26] LABS: Alanine Aminotransferase 12 U/L (12-78); Aspartate Amino Transferase 17 U/L (17-59); Blood Urea Nitrogen 28 mg/dl (9-20); Creatinine Clearance Estimated 64 mL/min (50-200); Estimated Glomerular Filt Rate 49 ml/min (>60); GFR (African American) 60 ML/MIN (>60)
[2022-05-18 07:27] LABS: Albumin Level 3.4 g/dl (3.5-5.0); Albumin/Globulin Ratio 1.4 (1.1-1.8); Alkaline Phosphatase 126 U/L (38-126); Bilirubin,Total 1.1 mg/dl (0.2-1.3); Calcium 8.7 mg/dl (8.4-10.2); Carbon Dioxide 27 mmol/L (22.0-30.0); Globulin 2.4 g/dL (1.3-3.2); Glucose 135 mg/dl (74-100); Total Protein,Serum 5.8 g/dl (6.3-8.2)
[2022-05-18 07:34] LABS: Platelet Count 24 K/mm3 (142-424)
[2022-05-18 08:23] LABS: NT Pro Brain Natriuretic Pep. 2940 pg/mL (0-450)
--- NOTE | 2022-05-18 10:25 | PC.NURSE ---
courtesy tech round: pt sleeping with call light within reach.
[2022-05-18 10:53] LABS: POC Glucose,Bedside 232 (70-110)
--- NOTE | 2022-05-18 14:22 | EXP.PN ---
Subjective *Date: 05/18/22 *Time: 14:22 Interval history: No acute events overnight, patient received blood transfusion with no evidence of reaction. Patient is in a good mood this morning and feels well. Exam Data for Last 24 hours Vital signs and Labs for Last 24 Hours: Temp Pulse Resp BP Pulse Ox 97.9 F 91 H 18 134/69 97 05/18/22 08:00 05/18/22 08:00 05/18/22 09:24 05/18/22 08:00 05/18/22 08:00 Laboratory Results - last 24 hr 05/17/22 07:45: Blood Type A Negative, Antibody Screen Positive, Crossmatch (AHG) See Detail 05/17/22 07:45: Antibody Identification Anti-C 05/17/22 16:42: POC Glucose 248 H 05/17/22 20:01: POC Glucose 250 H 05/18/22 05:09: POC Glucose 166 H 05/18/22 06:58: NT-Pro-B Natriuret Pep 2940 H 05/18/22 06:58: WBC 1.6 L*, RBC 2.44 L, Hgb 7.7 L, Hct 22.0 L, MCV 90.0, MCH 31.7 H, MCHC 35.2, RDW 21.7 H, Plt Count 24 L*, MPV 13.5 H, Neut % (Auto) 46.0, Lymph % (Auto) 40.3, [place] % (Auto) 5.3, Eos % (Auto) 8.2, Baso % (Auto) 0.2, Neut # (Auto) 0.7 L*, Lymph # (Auto) 0.6 L, [place] # (Auto) 0.1, Eos # (Auto) 0.1, Baso # (Auto) 0.0 05/18/22 06:58: Sodium 139, Potassium 4.0, Chloride 106, Carbon Dioxide 27, Anion Gap 10.0, BUN 28 H, Creatinine 1.40 H, Estimated Creat Clear 64, Estimated GFR 49 L, Est GFR ( Amer) 60, Glucose 135 H, Calcium 8.7, Total Bilirubin 1.1, AST 17, ALT 12, Alkaline Phosphatase 126, Total Protein 5.8 L, Albumin 3.4 L, Globulin 2.4, Albumin/Globulin Ratio 1.4 05/18/22 10:46: POC Glucose 232 H I & O for Last 24 hours: Intake & Output 05/15/22 05/16/22 05/17/22 05/18/22 23:59 23:59 23:59 23:59 Intake Total 921 / 921 1820 / 1820 Output Total 750 / 1050 2640 / 2960 1530 / 1530 Balance -750 / -1050 -1719 / -2039 290 / 290 Weight 101.378 kg 101.015 kg 100 kg Microbiology Reports for the Last 24 Hours: Microbiology 05/17/22 08:15 Leg,Right Gram Stain - Final 05/17/22 08:15 Leg,Right Wound Culture - Preliminary Constitutional Constitutional: no acute distress, obese, chronically ill appearing and cooperative Comments: Improved pallor. Improved weakness *Routine HEENT Exam Head: Present normocephalic and atraumatic Eye: Present EOMI and PERRL ENT: Present mucous membranes dry; Absent dentition normal *Routine Neck Exam Neck: Present supple and full ROM; Absent JVD *Routine Respiratory Exam Respiratory: Present rhonchi and able to speak in complete sentences; Absent accessory muscle use, wheezes or crackles *Routine Cardiovascular Exam Cardiovascular: Present RRR and murmur; Absent gallop *Routine Abdominal Exam Abdominal: Present soft; Absent tenderness, distended or rebound *Routine Extremities Exam Extremities: Absent cyanosis or edema Comments: s/p Right BKA, with bandage covering stump infection, left big toe erythema with streaks extending proximally *Routine Skin Exam Skin: Present intact and cyanosis *Routine Neurological Exam Neurological: Present alert, oriented X3, moving all extremities and normal tone Routine Psychiatric Exam Psychiatric: Present normal affect, normal thought process, cooperative and good insight; Absent depressed or anxious Assessment and Plan *Assessment and plan (1) Peripheral arterial disease: Status: Acute Category: Medical Code(s): I73.9 - Peripheral vascular disease, unspecified (2) Diabetic peripheral neuropathy: Status: Chronic Category: Medical Code(s): E11.42 - Type 2 diabetes mellitus with diabetic polyneuropathy (3) History of MRSA infection: Status: Acute Category: Medical Code(s): Z86.14 - Personal history of Methicillin resistant Staphylococcus aureus infection (4) Cellulitis of left foot: Status: Acute Category: Medical Code(s): L03.116 - Cellulitis of left lower limb (5) Right BKA infection: Status: Acute Category: Medical Code(s): T87.43 - Infection of amputation stump, right lower extremity (6) Leg os
[2022-05-18 16:44] LABS: POC Glucose,Bedside 272 (70-110)
--- NOTE | 2022-05-18 16:50 | PC.NURSE ---
NO ACUTE CHANGES THIS SHIFT. A&OX4. LUNGS CTA. HR REG, MURMUR NOTED. ABDOMEN SOFT, NON-TENDER W/ ACTIVE BS IN ALL QUADS. PT DID HAVE A BM THIS SHIFT. VOIDING W/O DIFFICULTY. URINE CLEAR, STRAW COLORED. DRESSING TO STUMP C/D/I. RED STREAKING NOTED EXTENDING FROM GREAT TOE UP TO ANKLE ON LLE. PT HAS BEEN UP TO CHAIR PERIODICALLY THIS SHIFT. CURRENTLY AT BEDSIDE. AWAITING PLATELETS TO BE RELEASED FROM LAB. NO NEEDS VOICED @ THIS TIME. CALL TODD W/IN REACH.
[2022-05-18 19:14] LABS: Hematocrit 21.6 % (42.0-52.0); Hemoglobin 7.5 g/dL (14.1-18.0)
[2022-05-18 20:52] LABS: POC Glucose,Bedside 192 (70-110)
--- NOTE | 2022-05-18 21:58 | PC.NURSE ---
1 hr post transfusion platlets hgb7.5 and hct 21.6 reported to [facility]
--- NOTE | 2022-05-18 22:27 | PC.NURSE ---
AT 1930 WAS UNABLE TO PALPATE PEDAL PULSES IN THE LEFT FOOT. DOPPLER INDENTIFIED A VERY WEAK DORSALIS, FAIR INNER POSTERIOR TIBIAL BUT COULD NOT IDENTIFY THE OUTTER POSTERIOR TIBIAL PULSE. THE FOOT IS WARM AND DRY, ALL TOES ON THE FOOT ARE DARK RED AND DARK RED STREAK GOING UP THE SIMMS FROM THE GREAT AND SECOND TOES. PATIENT CONTINUES TO WAIT FOR BED AT [facility]. AT BEDSIDE. THAIS TO CANDELARIO C/D/I.
--- NOTE | 2022-05-19 03:29 | PC.NURSE ---
PATIENT HAS RESTED WELL SINCE ATWOOD AN RESTORIL. SPOUSE AT BEDSIDE. VSS/AFEBRILE. NO FURTHER C/O PAIN OR DISCOMFORT. COURTNEYG C/D/I TO [facility]. CONTINUES TO WAIT FOR BED PLACEMENT AT .
[2022-05-19 04:00] VITALS: BP 103/54; PULSE 86; RESP 20; TEMP 36.6; O2SAT 96; BMI 31.4
[2022-05-19 05:23] LABS: POC Glucose,Bedside 118 (70-110)
--- NOTE | 2022-05-19 06:10 | PC.NURSE ---
Asha with [facility] called for update, no bed available at this time.
[2022-05-19 07:49] LABS: Basophils % 0.6 % (0.1-2.0); Eosinophils # 0.1 K/mm3 (0.0-0.4); Eosinophils % 8.3 % (0.1-12.0); Hematocrit 23.3 % (42.0-52.0); Lymphocytes # 0.6 K/mm3 (0.7-4.5); Lymphocytes % 36.9 % (10-50); Mean Corpuscular HGB Conc 34.2 g/dL (31.8-35.4); Mean Corpuscular Hemoglobin 31.3 pg (27.0-31.2); Mean Corpuscular Volume 91.5 fl (80-94); Mean Platelet Volume 10.8 fl (7.4-10.4); Monocytes # 0.1 K/mm3 (0.1-1.0); Monocytes % 3.4 % (1.7-9.3); Neutrophils # 0.8 K/mm3 (1.8-7.8); Neutrophils % 50.9 % (37.0-80.0); Red Blood Count 2.55 M/mm3 (4.60-6.20); Red Cell Distribution Width 22.1 % (11.5-17.5); White Blood Count 1.6 K/mm3 (4.8-10.8)
[2022-05-19 07:56] LABS: Platelet Count 41 K/mm3 (142-424)
[2022-05-19 08:00] VITALS: BP 146/70; PULSE 93; RESP 17; TEMP 36.6; O2SAT 96
[2022-05-19 08:05] LABS: Chloride 109 mmol/L (98-107); Sodium 140 mmol/L (136-145)
[2022-05-19 08:06] LABS: Potassium 4.1 mmoL/L (3.5-5.1)
[2022-05-19 08:08] LABS: Alanine Aminotransferase 12 U/L (12-78); Albumin Level 3.2 g/dl (3.5-5.0); Albumin/Globulin Ratio 1.4 (1.1-1.8); Alkaline Phosphatase 132 U/L (38-126); Anion Gap 10.1 mEq/L (5-15); Aspartate Amino Transferase 18 U/L (17-59); Bilirubin,Total 0.7 mg/dl (0.2-1.3); Blood Urea Nitrogen 26 mg/dl (9-20); Carbon Dioxide 25 mmol/L (22.0-30.0); Creatinine Clearance Estimated 76 mL/min (50-200); Estimated Glomerular Filt Rate 59 ml/min (>60); GFR (African American) 71 ML/MIN (>60); Globulin 2.3 g/dL (1.3-3.2); Total Protein,Serum 5.5 g/dl (6.3-8.2)
[2022-05-19 08:09] LABS: Calcium 8.7 mg/dl (8.4-10.2); Glucose 109 mg/dl (74-100)
[2022-05-19 11:59] LABS: POC Glucose,Bedside 228 (70-110)
--- NOTE | 2022-05-19 14:41 | EXP.PHA.PN ---
Subjective *Date: 05/19/22 *Time: 14:41 Medical Exam Vital signs and Labs for Last 24 Hours: Vital Signs Temp Pulse Pulse Pulse Resp BP BP 05/19/22 08:00 97.8 F 93 H 17 146/70 H 05/19/22 04:00 97.9 F 86 20 103/54 L 05/18/22 20:00 98.1 F 84 18 136/54 L 05/18/22 20:00 84 05/18/22 18:48 97.8 F 88 16 129/64 05/18/22 17:48 98.3 F 88 16 137/68 05/18/22 17:45 98 F 87 16 143/64 H 05/18/22 17:40 98.3 F 82 16 145/69 H 05/18/22 17:35 98.1 F 99 H 16 150/76 H 05/18/22 17:29 98.1 F 105 H 16 137/72 05/18/22 16:00 98.0 F 89 16 117/59 L Pulse Ox 05/19/22 08:00 96 05/19/22 04:00 96 05/18/22 20:00 98 05/18/22 20:00 98 05/18/22 18:48 99 05/18/22 17:48 98 05/18/22 17:45 97 05/18/22 17:40 98 05/18/22 17:35 97 05/18/22 17:29 96 05/18/22 16:00 98 Intake and Output 05/18/22 05/19/22 05/19/22 23:59 07:59 15:59 Intake Total 570 / 2510 170 / 1170 1000 / 1170 Output Total 400 / 2130 400 / 1600 1200 / 1600 Balance 170 / 380 -230 / -430 -200 / -430 Intake: Intake, Oral Amount 360 / 1800 120 / 1120 1000 / 1120 Intake, Total IV Amount 50 / 50 Ertapenem Sodium 1 gm In 0.9 % 50 / 50 Sodium Chloride 50 ml @ 100 mls /hr IV Q24H [facility] Rx#:[id number] Intake (Blood Product) Amt 210 / 710 Pheresis Platelets Unit 210 / 210 [id number] Output: Output, Urine Amount 400 / 2130 400 / 1600 1200 / 1600 Other: Number of Unmeasured Voids 1 0 Weight 102 kg Patient Weight 05/19/22 23:59 Weight 102 kg Laboratory Results - last 24 hr 05/17/22 07:45: Blood Type A Negative, Antibody Screen Positive, Crossmatch (AHG) See Detail 05/18/22 16:34: POC Glucose 272 H 05/18/22 19:03: Hgb 7.5 L, Hct 21.6 L 05/18/22 20:41: POC Glucose 192 H 05/19/22 05:16: POC Glucose 118 H 05/19/22 07:18: WBC 1.6 L*, RBC 2.55 L, Hgb 8.0 L, Hct 23.3 L, MCV 91.5, MCH 31.3 H, MCHC 34.2, RDW 22.1 H, Plt Count 41 L* D, MPV 10.8 H, Neut % (Auto) 50.9, Lymph % (Auto) 36.9, [place] % (Auto) 3.4, Eos % (Auto) 8.3, Baso % (Auto) 0.6, Neut # (Auto) 0.8 L*, Lymph # (Auto) 0.6 L, [place] # (Auto) 0.1, Eos # (Auto) 0.1, Baso # (Auto) 0.0 05/19/22 07:18: Sodium 140, Potassium 4.1, Chloride 109 H, Carbon Dioxide 25, Anion Gap 10.1, BUN 26 H, Creatinine 1.20, Estimated Creat Clear 76, Estimated GFR 59, Est GFR ( Amer) 71, Glucose 109 H, Calcium 8.7, Total Bilirubin 0.7, AST 18, ALT 12, Alkaline Phosphatase 132 H, Total Protein 5.5 L, Albumin 3.2 L, Globulin 2.3, Albumin/Globulin Ratio 1.4 05/19/22 11:51: POC Glucose 228 H I & O for Labs for Last 24 Hours: Intake & Output 05/16/22 05/17/22 05/18/22 05/19/22 23:59 23:59 23:59 23:59 Intake Total 921 / 921 2390 / 2510 1170 / 1170 Output Total 750 / 1050 2640 / 2960 2130 / 2130 1600 / 1600 Balance -750 / -1050 -1719 / -2039 260 / 380 -430 / -430 Weight 101.378 kg 101.015 kg 100 kg 102 kg Microbiology Reports for the Last 24 Hours: Microbiology 05/17/22 08:15 Leg,Right Gram Stain - Final 05/17/22 08:15 Leg,Right Wound Culture - Preliminary Gram Negative Rods Gram Negative Rods#2 Gram Positive Cocci 05/16/22 15:50 Blood Blood Culture - Preliminary NO GROWTH AFTER 48 HOURS 05/16/22 15:50 Blood Blood Culture - Preliminary NO GROWTH AFTER 48 HOURS The patient's infection will respond to the chosen ABx?: Yes (LEG WOUND GROWING GPC, GNR X2, FINAL ID AND SENSITIVITIES PENDING.) Is the patient receiving the right drug, dose, and route?: Yes Could a more targeted ABx be ordered?: No
[2022-05-19 15:44] VITALS: BP 133/57; PULSE 91; RESP 15; TEMP 36.8; O2SAT 93
[2022-05-19 15:54] LABS: Vancomycin,Trough 13.8 ug/mL (5.0-10.0)
--- NOTE | 2022-05-19 16:20 | PC.NURSE ---
Finger stick 253 at this time
[2022-05-19 17:10] LABS: POC Glucose,Bedside 253 (70-110)
--- NOTE | 2022-05-19 17:23 | PC.NURSE ---
PT HAS DONE WELL THIS SHIFT. NEW IV STARTED IN LT WRIST. PT STILL WAITING ON BED. CB AND PERSONAL ITEMS WITHIN REACH, NO CONCERNS VOICED AT THIS TIME.
--- NOTE | 2022-05-19 18:21 | PC.NURSE ---
[facility] called with update on bed availability. Still no bed available.
--- NOTE | 2022-05-19 18:22 | EXP.PN ---
Subjective *Date: 05/19/22 *Time: 18:22 Interval history: Patient remains comfortable, in a good mood, and in no acute distress today. Exam Data for Last 24 hours Vital signs and Labs for Last 24 Hours: Temp Pulse Resp BP Pulse Ox 98.2 F 91 H 15 133/57 L 93 L 05/19/22 15:44 05/19/22 15:44 05/19/22 15:44 05/19/22 15:44 05/19/22 15:44 Laboratory Results - last 24 hr 05/18/22 19:03: Hgb 7.5 L, Hct 21.6 L 05/18/22 20:41: POC Glucose 192 H 05/19/22 05:16: POC Glucose 118 H 05/19/22 07:18: WBC 1.6 L*, RBC 2.55 L, Hgb 8.0 L, Hct 23.3 L, MCV 91.5, MCH 31.3 H, MCHC 34.2, RDW 22.1 H, Plt Count 41 L* D, MPV 10.8 H, Neut % (Auto) 50.9, Lymph % (Auto) 36.9, [place] % (Auto) 3.4, Eos % (Auto) 8.3, Baso % (Auto) 0.6, Neut # (Auto) 0.8 L*, Lymph # (Auto) 0.6 L, [place] # (Auto) 0.1, Eos # (Auto) 0.1, Baso # (Auto) 0.0 05/19/22 07:18: Sodium 140, Potassium 4.1, Chloride 109 H, Carbon Dioxide 25, Anion Gap 10.1, BUN 26 H, Creatinine 1.20, Estimated Creat Clear 76, Estimated GFR 59, Est GFR ( Amer) 71, Glucose 109 H, Calcium 8.7, Total Bilirubin 0.7, AST 18, ALT 12, Alkaline Phosphatase 132 H, Total Protein 5.5 L, Albumin 3.2 L, Globulin 2.3, Albumin/Globulin Ratio 1.4 05/19/22 11:51: POC Glucose 228 H 05/19/22 15:12: Vancomycin Trough 13.8 H 05/19/22 16:18: POC Glucose 253 H I & O for Last 24 hours: Intake & Output 05/16/22 05/17/22 05/18/2222 23:59 23:59 23:59 23:59 Intake Total 921 / 921 2390 / 2510 1530 / 1530 Output Total 750 / 1050 2640 / 2960 2130 / 2130 1999 Balance -750 / -1050 -1719 / -2039 260 / 380 -470 / -470 Weight 101.378 kg 101.015 kg 100 kg 102 kg Microbiology Reports for the Last 24 Hours: Microbiology 05/17/22 08:15 Leg,Right Gram Stain - Final 05/17/22 08:15 Leg,Right Wound Culture - Preliminary Gram Negative Rods Gram Negative Rods#2 Gram Positive Cocci 05/16/22 15:50 Blood Blood Culture - Preliminary NO GROWTH AFTER 48 HOURS 05/16/22 15:50 Blood Blood Culture - Preliminary NO GROWTH AFTER 48 HOURS Constitutional Constitutional: no acute distress, obese, chronically ill appearing and cooperative Comments: Improved weakness *Routine HEENT Exam Head: Present normocephalic and atraumatic Eye: Present EOMI and PERRL ENT: Present mucous membranes dry; Absent dentition normal *Routine Neck Exam Neck: Present supple and full ROM; Absent JVD *Routine Respiratory Exam Respiratory: Present rhonchi and able to speak in complete sentences; Absent accessory muscle use, wheezes or crackles *Routine Cardiovascular Exam Cardiovascular: Present RRR and murmur; Absent gallop *Routine Abdominal Exam Abdominal: Present soft; Absent tenderness, distended or rebound *Routine Extremities Exam Extremities: Absent cyanosis or edema Comments: s/p Right BKA, with bandage covering stump infection, left big toe erythema with streaks extending proximally *Routine Skin Exam Skin: Present intact and cyanosis *Routine Neurological Exam Neurological: Present alert, oriented X3, moving all extremities and normal tone Routine Psychiatric Exam Psychiatric: Present normal affect, normal thought process, cooperative and good insight; Absent depressed or anxious Assessment and Plan *Assessment and plan (1) Peripheral arterial disease: Status: Acute Category: Medical Code(s): I73.9 - Peripheral vascular disease, unspecified (2) Diabetic peripheral neuropathy: Status: Chronic Category: Medical Code(s): E11.42 - Type 2 diabetes mellitus with diabetic polyneuropathy (3) History of MRSA infection: Status: Acute Category: Medical Code(s): Z86.14 - Personal history of Methicillin resistant Staphylococcus aureus infection (4) Cellulitis of left foot: Status: Acute Category: Medical Code
[2022-05-19 19:36] VITALS: BP 122/60; PULSE 91; RESP 16; TEMP 36.8; O2SAT 94
[2022-05-19 20:00] VITALS: O2SAT 94
[2022-05-19 20:03] LABS: POC Glucose,Bedside 174 (70-110)
[2022-05-19 21:03] LABS: Vancomycin,Peak 25.2 ug/ml (11-39)
[2022-05-20 03:38] VITALS: BP 100/54; PULSE 92; RESP 16; TEMP 36.8; O2SAT 92; BMI 32.2
--- NOTE | 2022-05-20 05:05 | PC.NURSE ---
patient has rested well for most of this shift. spouse had gone home. patient waiting for a bed at [facility].
[2022-05-20 06:03] LABS: POC Glucose,Bedside 134 (70-110)
--- NOTE | 2022-05-20 06:47 | PC.NURSE ---
Tricia with [facility] called for update, no bed available at this time.
[2022-05-20 07:34] LABS: Basophils % 0.7 % (0.1-2.0); Eosinophils # 0.1 K/mm3 (0.0-0.4); Eosinophils % 5.3 % (0.1-12.0); Hematocrit 23.3 % (42.0-52.0); Hemoglobin 7.9 g/dL (14.1-18.0); Lymphocytes # 0.6 K/mm3 (0.7-4.5); Lymphocytes % 40.8 % (10-50); Mean Corpuscular HGB Conc 33.9 g/dL (31.8-35.4); Mean Corpuscular Hemoglobin 31.3 pg (27.0-31.2); Mean Corpuscular Volume 92.4 fl (80-94); Mean Platelet Volume 11.5 fl (7.4-10.4); Monocytes # 0.1 K/mm3 (0.1-1.0); Monocytes % 3.7 % (1.7-9.3); Neutrophils # 0.7 K/mm3 (1.8-7.8); Neutrophils % 49.5 % (37.0-80.0); Red Blood Count 2.52 M/mm3 (4.60-6.20); Red Cell Distribution Width 21.8 % (11.5-17.5); White Blood Count 1.5 K/mm3 (4.8-10.8)
[2022-05-20 07:36] LABS: Chloride 108 mmol/L (98-107); Platelet Count 36 K/mm3 (142-424); Sodium 140 mmol/L (136-145)
[2022-05-20 07:37] LABS: Potassium 4.2 mmoL/L (3.5-5.1)
--- NOTE | 2022-05-20 07:37 | PC.NURSE ---
LAB NOTIFIED THIS RN THAT PT PLT COUNT WAS 36. NAME AND VERIFIED. DR OCHOA MADE AWARE AT THIS TIME.
[2022-05-20 07:39] LABS: Alanine Aminotransferase 14 U/L (12-78); Albumin Level 3.5 g/dl (3.5-5.0); Albumin/Globulin Ratio 1.3 (1.1-1.8); Alkaline Phosphatase 137 U/L (38-126); Anion Gap 11.2 mEq/L (5-15); Aspartate Amino Transferase 17 U/L (17-59); Bilirubin,Total 0.6 mg/dl (0.2-1.3); Blood Urea Nitrogen 23 mg/dl (9-20); Carbon Dioxide 25 mmol/L (22.0-30.0); Creatinine Clearance Estimated 71 mL/min (50-200); Estimated Glomerular Filt Rate 54 ml/min (>60); GFR (African American) 65 ML/MIN (>60); Globulin 2.6 g/dL (1.3-3.2); Total Protein,Serum 6.1 g/dl (6.3-8.2)
[2022-05-20 07:40] LABS: Calcium 8.8 mg/dl (8.4-10.2); Glucose 123 mg/dl (74-100)
[2022-05-20 08:00] VITALS: BP 137/66; PULSE 85; RESP 18; TEMP 36.4; O2SAT 94; O2SAT 97
--- NOTE | 2022-05-20 08:33 | EXP.PHA.CONS ---
Pharmacy Consult Date: 05/20/22 Time: 08:33 Referring provider: DR OCHOA Reason for Consult:: VANCOMYCIN DOSE ADJUSTMENT BASED ON PK LEVELS OBTAINED Allergies Allergy/AdvReac Type Severity Reaction Status Date / Time Penicillins [PENICILLINS] AdvReac Mild Other Verified 03/15/21 10:32 Home Medications Medication Instructions Recorded Confirmed Type atorvastatin 40 mg tablet 40 mg PO HS Cholesterol 09/29/17 05/17/22 History furosemide 40 mg tablet 40 mg PO DAILY Fluid 09/29/17 05/17/22 History alendronate 35 mg tablet 35 mg PO WEEKLY Osteoporosis 11/12/20 05/17/22 History metformin 500 mg tablet,extended 1,000 mg PO BID Diabetes 11/12/20 05/17/22 History release 24 hr empagliflozin 10 mg tablet 10 mg PO DAILY Diabetes/heart 04/23/22 05/17/22 History (Jardiance) failure insulin glargine 100 unit/mL (3 35 unit SQ HS Diabetes 04/23/22 05/17/22 History mL) subcutaneous pen (Lantus Solostar U-100 Insulin) sacubitril 49 mg-valsartan 51 mg 1 tab PO BID Heart failure 04/23/22 05/17/22 History tablet (Entresto) temazepam 30 mg capsule 30 mg PO HS sleep 04/23/22 05/17/22 History apixaban 2.5 mg tablet (Eliquis) 2.5 mg PO BID Atrial fib 04/24/22 05/17/22 History aspirin 81 mg tablet,delayed 81 mg PO DAILY HEART HEALTH 04/24/22 05/17/22 History release carvedilol 12.5 mg tablet 12.5 mg PO BID Hypertension 04/24/22 05/17/22 History duloxetine 60 mg capsule,delayed 60 mg PO DAILY Depression 04/24/22 05/17/22 History release potassium chloride 20 mEq 20 meq PO DAILY Potassium 04/24/22 05/17/22 History tablet,extended release(part/cryst) replacement diazepam 10 mg tablet 10 mg PO QIDP PRN Anxiety? 05/17/22 05/17/22 History New Prescriptions to Start Prescriptions: Height: 1.8 m Weight: 104.355 kg Laboratory Results:: Laboratory Results - last 24 hr 05/19/22 11:51: POC Glucose 228 H 05/19/22 15:12: Vancomycin Trough 13.8 H 12/22/22 16:18: POC Glucose 253 H 05/19/22 19:56: POC Glucose 174 H 05/19/22 20:14: Vancomycin Peak 25.2 05/20/22 05:37: POC Glucose 134 H 05/20/22 07:20: WBC 1.5 L*, RBC 2.52 L, Hgb 7.9 L, Hct 23.3 L, MCV 92.4, MCH 31.3 H, MCHC 33.9, RDW 21.8 H, Plt Count 36 L*, MPV 11.5 H, Neut % (Auto) 49.5, Lymph % (Auto) 40.8, [place] % (Auto) 3.7, Eos % (Auto) 5.3, Baso % (Auto) 0.7, Neut # (Auto) 0.7 L*, Lymph # (Auto) 0.6 L, [place] # (Auto) 0.1, Eos # (Auto) 0.1, Baso # (Auto) 0.0 05/20/22 07:20: Sodium 140, Potassium 4.2, Chloride 108 H, Carbon Dioxide 25, Anion Gap 11.2, BUN 23 H, Creatinine 1.30 H, Estimated Creat Clear 71, Estimated GFR 54 L, Est GFR ( Amer) 65, Glucose 123 H, Calcium 8.8, Total Bilirubin 0.6, AST 17, ALT 14, Alkaline Phosphatase 137 H, Total Protein 6.1 L, Albumin 3.5, Globulin 2.6, Albumin/Globulin Ratio 1.3 Medical History: Medical History (Updated 05/17/22 @ 09:02 by Meryl Plata DPM) Atrial fibrillation CAD (coronary artery disease) Congestive heart failure Crushing injury of left ankle Diabetes History of heart attack Hypertension PAD (peripheral artery disease) Assessment and Plan Assessment and plan all Dx Assessment and Plan for all problems:: 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 Desired Peak: 35 MCG/ML Desired Trough: 12.5 MCG/ML Volume of distribution: 0.7 L/kg Infusion time: 2.0 HRS CALCULATED VALUES Percent above / below IBW: 34.6 % CRCL: 58.4 (ml/min). BMI: 31.18 Reggie: 0.053 (hr-1) Adjusted body weight: 85.4 kg T 1/2: 13.08 (hrs) Serum Creatinine: 1.3 mg/dL ti (hrs): 2.0 Dosing weight: 101.015 kg Vd (liters): 70.7105 liters (factor used: 0.7 L/kg). Dosing weight: Total body weight is being used for vancomycin dosing. CRCL method: Cockcroft and Gault
[2022-05-20 12:11] LABS: POC Glucose,Bedside 152 (70-110)
[2022-05-20 16:07] VITALS: BP 127/73; PULSE 89; RESP 18; TEMP 36.5; O2SAT 97
--- NOTE | 2022-05-20 16:43 | EXP.PN ---
Subjective *Date: 05/20/22 *Time: 16:43 Interval history: No acute events overnight, patient feels well and has no acute complaints. Exam Data for Last 24 hours Vital signs and Labs for Last 24 Hours: Temp Pulse Resp BP Pulse Ox 97.7 F 89 18 127/73 97 05/20/22 16:07 05/20/22 16:07 05/20/22 16:07 05/20/22 16:07 05/20/22 16:07 Laboratory Results - last 24 hr 05/19/22 16:18: POC Glucose 253 H 05/19/22 19:56: POC Glucose 174 H 05/19/22 20:14: Vancomycin Peak 25.2 05/20/22 05:37: POC Glucose 134 H 05/20/22 07:20: WBC 1.5 L*, RBC 2.52 L, Hgb 7.9 L, Hct 23.3 L, MCV 92.4, MCH 31.3 H, MCHC 33.9, RDW 21.8 H, Plt Count 36 L*, MPV 11.5 H, Neut % (Auto) 49.5, Lymph % (Auto) 40.8, [place] % (Auto) 3.7, Eos % (Auto) 5.3, Baso % (Auto) 0.7, Neut # (Auto) 0.7 L*, Lymph # (Auto) 0.6 L, [place] # (Auto) 0.1, Eos # (Auto) 0.1, Baso # (Auto) 0.0 05/20/22 07:20: Sodium 140, Potassium 4.2, Chloride 108 H, Carbon Dioxide 25, Anion Gap 11.2, BUN 23 H, Creatinine 1.30 H, Estimated Creat Clear 71, Estimated GFR 54 L, Est GFR ( Amer) 65, Glucose 123 H, Calcium 8.8, Total Bilirubin 0.6, AST 17, ALT 14, Alkaline Phosphatase 137 H, Total Protein 6.1 L, Albumin 3.5, Globulin 2.6, Albumin/Globulin Ratio 1.3 05/20/22 11:50: POC Glucose 152 H I & O for Last 24 hours: Intake & Output 05/17/22 05/18/22 05/19/22 05/20/22 23:59 23:59 23:59 23:59 Intake Total 921 / 921 2390 / 2510 1530 / 1530 840 / 840 Output Total 2640 / 2960 2130 / 2130 2250 / 2450 850 / 850 Balance -1719 / -2039 260 / 380 -720 / -920 -10 / -10 Weight 101.015 kg 100 kg 102 kg 104.355 kg Microbiology Reports for the Last 24 Hours: Microbiology 05/17/22 08:15 Leg,Right Gram Stain - Final 05/17/22 08:15 Leg,Right Wound Culture - Final Pseudomonas aeruginosa Enterobacter cloacae Staphylococcus aureus Constitutional Constitutional: no acute distress, obese, chronically ill appearing and cooperative Comments: Easily sits up in bed for lung exam. *Routine HEENT Exam Head: Present normocephalic and atraumatic Eye: Present EOMI and PERRL ENT: Present mucous membranes moist; Absent dentition normal *Routine Neck Exam Neck: Present supple and full ROM; Absent JVD *Routine Respiratory Exam Respiratory: Present CTA bilaterally, diminished air movement and able to speak in complete sentences; Absent accessory muscle use, rhonchi, wheezes or crackles *Routine Cardiovascular Exam Cardiovascular: Present RRR and murmur; Absent gallop *Routine Abdominal Exam Abdominal: Present soft; Absent tenderness, distended or rebound *Routine Extremities Exam Extremities: Absent cyanosis or edema Comments: s/p Right BKA, with bandage covering stump infection, left big toe erythema with streaks extending proximally stable *Routine Skin Exam Skin: Present intact and cyanosis *Routine Neurological Exam Neurological: Present alert, oriented X3, moving all extremities and normal tone Routine Psychiatric Exam Psychiatric: Present normal affect, normal thought process, cooperative and good insight; Absent depressed or anxious Assessment and Plan *Assessment and plan (1) Peripheral arterial disease: Status: Acute Category: Medical Code(s): I73.9 - Peripheral vascular disease, unspecified (2) Diabetic peripheral neuropathy: Status: Chronic Category: Medical Code(s): E11.42 - Type 2 diabetes mellitus with diabetic polyneuropathy (3) History of MRSA infection: Status: Acute Category: Medical Code(s): Z86.14 - Personal history of Methicillin resistant Staphylococcus aureus infection (4) Cellulitis of left foot: Status: Acute Category: Medical Code(s): L03.116 - Cellulitis of left lower limb (5) Right BKA infection: Status: Acute Category: Medical Code(s): T87.43 - Infection of amputation stump, right lower
[2022-05-20 17:40] LABS: POC Glucose,Bedside 142 (70-110)
--- NOTE | 2022-05-20 17:47 | PC.NURSE ---
cecilio called from [facility]. saying we still do not have a bed
--- NOTE | 2022-05-20 18:24 | PC.NURSE ---
PT IS AOX4, DSG CHANGED THIS SHIFT PER ORDER. TOLERATING DIET WELL.
[2022-05-20 20:00] VITALS: BP 116/55; PULSE 98; RESP 18; TEMP 37.2; O2SAT 97; O2SAT 99
[2022-05-20 20:30] LABS: POC Glucose,Bedside 224 (70-110)
--- NOTE | 2022-05-20 20:50 | EXP.PN ---
Subjective *Date: 05/21/22 *Time: 15:14 Interval history: nurse reported that unable to find dorsalis pedis pulse . on last check that foot looks better than in past . posterior tib still present . Exam Data for Last 24 hours Vital signs and Labs for Last 24 Hours: Temp Pulse Resp BP Pulse Ox 97.7 F 89 18 127/73 97 05/20/22 16:07 05/20/22 16:07 05/20/22 16:07 05/20/22 16:07 05/20/22 16:07 Laboratory Results - last 24 hr 05/19/22 20:14: Vancomycin Peak 25.2 05/20/22 05:37: POC Glucose 134 H 05/20/22 07:20: WBC 1.5 L*, RBC 2.52 L, Hgb 7.9 L, Hct 23.3 L, MCV 92.4, MCH 31.3 H, MCHC 33.9, RDW 21.8 H, Plt Count 36 L*, MPV 11.5 H, Neut % (Auto) 49.5, Lymph % (Auto) 40.8, [place] % (Auto) 3.7, Eos % (Auto) 5.3, Baso % (Auto) 0.7, Neut # (Auto) 0.7 L*, Lymph # (Auto) 0.6 L, [place] # (Auto) 0.1, Eos # (Auto) 0.1, Baso # (Auto) 0.0 05/20/22 07:20: Sodium 140, Potassium 4.2, Chloride 108 H, Carbon Dioxide 25, Anion Gap 11.2, BUN 23 H, Creatinine 1.30 H, Estimated Creat Clear 71, Estimated GFR 54 L, Est GFR ( Amer) 65, Glucose 123 H, Calcium 8.8, Total Bilirubin 0.6, AST 17, ALT 14, Alkaline Phosphatase 137 H, Total Protein 6.1 L, Albumin 3.5, Globulin 2.6, Albumin/Globulin Ratio 1.3 05/20/22 11:50: POC Glucose 152 H 05/20/22 16:39: POC Glucose 142 H 05/20/22 20:19: POC Glucose 224 H I & O for Last 24 hours: Intake & Output 05/17/22 05/18/22 05/19/22 05/20/22 23:59 23:59 23:59 23:59 Intake Total 921 / 921 2390 / 2510 1530 / 1530 1200 / 1200 Output Total 2640 / 2960 2130 / 2130 2250 / 2450 1050 / 1050 Balance -1719 / -2039 260 / 380 -720 / -920 150 / 150 Weight 101.015 kg 100 kg 102 kg 104.355 kg Microbiology Reports for the Last 24 Hours: Microbiology 05/17/22 08:15 Leg,Right Gram Stain - Final 05/17/22 08:15 Leg,Right Wound Culture - Final Pseudomonas aeruginosa Enterobacter cloacae Staphylococcus aureus *Routine Extremities Exam Extremities: Present cyanosis (left foot none is pink to pale , no edema left great toe red , with red streak extending to ankle . patient reported no pain . noted seveal small abrsion to skin of hayes. ) Comments: patient reported having small puppy that scratches him in play . note history of poor perpherial vascular status Assessment and Plan *Assessment and plan (1) Peripheral arterial disease: Status: Acute Category: Medical Code(s): I73.9 - Peripheral vascular disease, unspecified (2) Diabetic peripheral neuropathy: Status: Chronic Category: Medical Code(s): E11.42 - Type 2 diabetes mellitus with diabetic polyneuropathy (3) History of MRSA infection: Status: Acute Category: Medical Code(s): Z86.14 - Personal history of Methicillin resistant Staphylococcus aureus infection (4) Cellulitis of left foot: Status: Acute Category: Medical Code(s): L03.116 - Cellulitis of left lower limb (5) Right BKA infection: Status: Acute Category: Medical Code(s): T87.43 - Infection of amputation stump, right lower extremity (6) Leg osteomyelitis, right: Status: Acute Category: Medical Code(s): M86.9 - Osteomyelitis, unspecified Plan will continue on present medications . and plan is transfer to another facility to treat this worsening chronic issue Rounded on patient after nurse practitioner. Personally examined and interviewed patient. Agree with exam findings and plan of care findings as documented.
--- NOTE | 2022-05-20 21:27 | PC.NURSE ---
at 1999 WAS UNABLE TO HEAR DORSALIS WITH THE DOPPLER. INNER POSTERIOR TIBIAL VERY WEAK BUT AUDIBLE WITH DOPPLER. UNABLE TO HEAR LEFT OUTTER POSTERIOR TIBIA. FOOT IS WARM AND TRY. CAN WIGGLE TOES. HAS SENSATION. VENKAT FAUSTIN NOTIFIED. CAME UP TO SEE PATIENT. . NO NEW ORDERS. PATIENT IS STILL WAITING FOR A BED AT [facility].
[2022-05-21 04:00] VITALS: BP 113/60; PULSE 85; RESP 18; TEMP 36.6; O2SAT 95; BMI 32.3
[2022-05-21 05:48] LABS: POC Glucose,Bedside 109 (70-110)
--- NOTE | 2022-05-21 06:40 | PC.NURSE ---
[facility] CALLED THIS AM AND SAID STILL NO BED AVAILABLE AT THIS TIME.
[2022-05-21 08:00] VITALS: BP 127/60; PULSE 100; RESP 18; TEMP 36.6; O2SAT 99
[2022-05-21 08:03] LABS: Basophils % 0.4 % (0.1-2.0); Eosinophils # 0.1 K/mm3 (0.0-0.4); Hematocrit 23.2 % (42.0-52.0); Hemoglobin 7.6 g/dL (14.1-18.0); Lymphocytes # 0.6 K/mm3 (0.7-4.5); Lymphocytes % 39.5 % (10-50); Mean Corpuscular HGB Conc 32.9 g/dL (31.8-35.4); Mean Corpuscular Hemoglobin 30.8 pg (27.0-31.2); Mean Corpuscular Volume 93.7 fl (80-94); Mean Platelet Volume 11.6 fl (7.4-10.4); Monocytes # 0.1 K/mm3 (0.1-1.0); Monocytes % 7.1 % (1.7-9.3); Neutrophils # 0.7 K/mm3 (1.8-7.8); Red Blood Count 2.48 M/mm3 (4.60-6.20); Red Cell Distribution Width 21.9 % (11.5-17.5); White Blood Count 1.4 K/mm3 (4.8-10.8)
[2022-05-21 08:08] LABS: Chloride 109 mmol/L (98-107); Potassium 4.2 mmoL/L (3.5-5.1); Sodium 139 mmol/L (136-145)
[2022-05-21 08:11] LABS: Alanine Aminotransferase 13 U/L (12-78); Albumin Level 3.4 g/dl (3.5-5.0); Albumin/Globulin Ratio 1.3 (1.1-1.8); Alkaline Phosphatase 134 U/L (38-126); Anion Gap 11.2 mEq/L (5-15); Aspartate Amino Transferase 19 U/L (17-59); Bilirubin,Total 0.7 mg/dl (0.2-1.3); Blood Urea Nitrogen 22 mg/dl (9-20); Calcium 8.7 mg/dl (8.4-10.2); Carbon Dioxide 23 mmol/L (22.0-30.0); Creatinine Clearance Estimated 72 mL/min (50-200); Estimated Glomerular Filt Rate 54 ml/min (>60); GFR (African American) 65 ML/MIN (>60); Globulin 2.7 g/dL (1.3-3.2); Glucose 94 mg/dl (74-100); Total Protein,Serum 6.1 g/dl (6.3-8.2)
[2022-05-21 08:15] LABS: Platelet Count 35 K/mm3 (142-424)
[2022-05-21 11:23] LABS: POC Glucose,Bedside 198 (70-110)
[2022-05-21 16:00] VITALS: BP 135/66; PULSE 90; RESP 16; TEMP 36.5; O2SAT 98
--- NOTE | 2022-05-21 16:52 | EXP.PN ---
Subjective *Date: 05/21/22 *Time: 16:52 Interval history: No acute events overnight, patient resting comfortably, no complaints or concerns. Exam Data for Last 24 hours Vital signs and Labs for Last 24 Hours: Temp Pulse Resp BP Pulse Ox 97.7 F 90 16 135/66 98 05/21/22 16:00 05/21/22 16:00 05/21/22 16:00 05/21/22 16:00 05/21/22 16:00 Laboratory Results - last 24 hr 05/20/22 16:39: POC Glucose 142 H 05/20/22 20:19: POC Glucose 224 H 05/21/22 05:38: POC Glucose 109 05/21/22 07:48: WBC 1.4 L*, RBC 2.48 L, Hgb 7.6 L, Hct 23.2 L, MCV 93.7, MCH 30.8, MCHC 32.9, RDW 21.9 H, Plt Count 35 L*, MPV 11.6 H, Neut % (Auto) 46.0, Lymph % (Auto) 39.5, [place] % (Auto) 7.1, Eos % (Auto) 7.0, Baso % (Auto) 0.4, Neut # (Auto) 0.7 L*, Lymph # (Auto) 0.6 L, [place] # (Auto) 0.1, Eos # (Auto) 0.1, Baso # (Auto) 0.0 05/21/22 07:48: Sodium 139, Potassium 4.2, Chloride 109 H, Carbon Dioxide 23, Anion Gap 11.2, BUN 22 H, Creatinine 1.30 H, Estimated Creat Clear 72, Estimated GFR 54 L, Est GFR ( Amer) 65, Glucose 94, Calcium 8.7, Total Bilirubin 0.7, AST 19, ALT 13, Alkaline Phosphatase 134 H, Total Protein 6.1 L, Albumin 3.4 L, Globulin 2.7, Albumin/Globulin Ratio 1.3 05/21/22 11:14: POC Glucose 198 H I & O for Last 24 hours: Intake & Output 05/18/22 05/19/22 05/20/22 05/21/22 23:59 23:59 23:59 23:59 Intake Total 2390 / 2510 1530 / 1530 1200 / 1200 1340 / 1340 Output Total 2130 / 2130 2250 / 2450 1825 / 1825 630 / 630 Balance 260 / 380 -720 / -920 -625 / -625 710 / 710 Weight 100 kg 102 kg 104.355 kg 104.78 kg Microbiology Reports for the Last 24 Hours: Microbiology 05/16/22 15:50 Blood Blood Culture - Final NO GROWTH AFTER 5 DAYS 05/16/22 15:50 Blood Blood Culture - Final NO GROWTH AFTER 5 DAYS Constitutional Constitutional: no acute distress, obese, chronically ill appearing and cooperative Comments: Easily sits up in bed for lung exam. *Routine HEENT Exam Head: Present normocephalic and atraumatic Eye: Present EOMI and PERRL ENT: Present mucous membranes moist; Absent dentition normal *Routine Neck Exam Neck: Present supple and full ROM; Absent JVD *Routine Respiratory Exam Respiratory: Present CTA bilaterally, diminished air movement and able to speak in complete sentences; Absent accessory muscle use, rhonchi, wheezes or crackles *Routine Cardiovascular Exam Cardiovascular: Present RRR and murmur; Absent gallop *Routine Abdominal Exam Abdominal: Present soft; Absent tenderness, distended or rebound *Routine Extremities Exam Extremities: Absent cyanosis, edema or tenderness Comments: s/p Right BKA, there is a small scab in a crease on right stump, left big toe erythema with streaks extending proximally stable *Routine Skin Exam Skin: Present intact, cyanosis and erythema (Reddish-purple erythema on left big toe, extending proximally) *Routine Neurological Exam Neurological: Present alert, oriented X3, CN II-XII intact, moving all extremities and normal tone; Absent motor deficit Routine Psychiatric Exam Psychiatric: Present normal affect, normal thought process, cooperative, good insight and good judgment; Absent suicidal ideation, homicidal ideation, auditory hallucinations, visual hallucinations, depressed or anxious Assessment and Plan *Assessment and plan (1) Peripheral arterial disease: Status: Acute Category: Medical Code(s): I73.9 - Peripheral vascular disease, unspecified (2) Diabetic peripheral neuropathy: Status: Chronic Category: Medical Code(s): E11.42 - Type 2 diabetes mellitus with diabetic polyneuropathy (3) History of MRSA infection: Status: Acute Category: Medical Code(s): Z86.14 - Personal history of Methicillin resistant Staphylococcus aureus infection (4) Cellulitis of left foot: Status: Acute Category: Medical Code(s): L03.116 - Cellulitis of left lo
[2022-05-21 17:04] LABS: POC Glucose,Bedside 173 (70-110)
--- NOTE | 2022-05-21 17:58 | PC.NURSE ---
cecilio [facility] says they still do not have a bed
[2022-05-21 19:52] VITALS: BP 128/67; PULSE 84; RESP 18; TEMP 36.7; O2SAT 99
[2022-05-21 21:45] LABS: Vancomycin,Trough 17.6 ug/mL (5.0-10.0)
[2022-05-22 01:31] LABS: POC Glucose,Bedside 149 (70-110)
[2022-05-22 03:39] VITALS: BP 114/58; PULSE 85; RESP 18; TEMP 36.7; O2SAT 98; BMI 32.3
[2022-05-22 06:44] LABS: POC Glucose,Bedside 92 (70-110)
--- NOTE | 2022-05-22 06:52 | PC.NURSE ---
NO ACUTE CHANGES. PT RESTED WELL NO C/O PAIN THIS SHIFT. TURNING IN BED INDEPENDENTLY. REMAINS ON ROOM AIR. VSS. CALL BROOKS WITHIN REACH.
[2022-05-22 07:17] VITALS: BP 156/74; PULSE 96; RESP 17; TEMP 36.4; O2SAT 98
[2022-05-22 08:08] LABS: Basophils % 0.3 % (0.1-2.0); Eosinophils # 0.1 K/mm3 (0.0-0.4); Eosinophils % 7.4 % (0.1-12.0); Lymphocytes # 0.6 K/mm3 (0.7-4.5); Lymphocytes % 41.6 % (10-50); Mean Corpuscular HGB Conc 34.1 g/dL (31.8-35.4); Mean Corpuscular Hemoglobin 31.2 pg (27.0-31.2); Mean Corpuscular Volume 91.3 fl (80-94); Mean Platelet Volume 10.7 fl (7.4-10.4); Monocytes # 0.1 K/mm3 (0.1-1.0); Monocytes % 5.2 % (1.7-9.3); Neutrophils # 0.6 K/mm3 (1.8-7.8); Neutrophils % 45.6 % (37.0-80.0); Red Blood Count 2.25 M/mm3 (4.60-6.20); Red Cell Distribution Width 21.7 % (11.5-17.5); White Blood Count 1.4 K/mm3 (4.8-10.8)
[2022-05-22 08:11] LABS: Chloride 111 mmol/L (98-107); Sodium 138 mmol/L (136-145)
[2022-05-22 08:13] LABS: Blood Urea Nitrogen 20 mg/dl (9-20); Creatinine Clearance Estimated 67 mL/min (50-200); Estimated Glomerular Filt Rate 49 ml/min (>60); GFR (African American) 60 ML/MIN (>60)
[2022-05-22 08:14] LABS: Alanine Aminotransferase 11 U/L (12-78); Albumin/Globulin Ratio 1.3 (1.1-1.8); Alkaline Phosphatase 122 U/L (38-126); Aspartate Amino Transferase 15 U/L (17-59); Bilirubin,Total 0.6 mg/dl (0.2-1.3); Calcium 8.4 mg/dl (8.4-10.2); Carbon Dioxide 23 mmol/L (22.0-30.0); Globulin 2.4 g/dL (1.3-3.2); Glucose 76 mg/dl (74-100); Total Protein,Serum 5.4 g/dl (6.3-8.2)
[2022-05-22 08:26] LABS: Hematocrit 20.6 % (42.0-52.0); Platelet Count 28 K/mm3 (142-424)
--- NOTE | 2022-05-22 09:38 | EXP.PHA.CONS ---
Pharmacy Consult Date: 05/22/22 Time: 09:38 Referring provider: DR. OCHOA Reason for Consult:: VANCOMYCIN TROUGH LEVEL Allergies Allergy/AdvReac Type Severity Reaction Status Date / Time Penicillins [PENICILLINS] AdvReac Mild Other Verified 03/15/21 10:32 Home Medications Medication Instructions Recorded Confirmed Type atorvastatin 40 mg tablet 40 mg PO HS Cholesterol 09/29/17 05/17/22 History furosemide 40 mg tablet 40 mg PO DAILY Fluid 09/29/17 05/17/22 History alendronate 35 mg tablet 35 mg PO WEEKLY Osteoporosis 11/12/20 05/17/22 History metformin 500 mg tablet,extended 1,000 mg PO BID Diabetes 11/12/20 05/17/22 History release 24 hr empagliflozin 10 mg tablet 10 mg PO DAILY Diabetes/heart 04/23/22 05/17/22 History (Jardiance) failure insulin glargine 100 unit/mL (3 35 unit SQ HS Diabetes 04/23/22 05/17/22 History mL) subcutaneous pen (Lantus Solostar U-100 Insulin) sacubitril 49 mg-valsartan 51 mg 1 tab PO BID Heart failure 04/23/22 05/17/22 History tablet (Entresto) temazepam 30 mg capsule 30 mg PO HS sleep 04/23/22 05/17/22 History apixaban 2.5 mg tablet (Eliquis) 2.5 mg PO BID Atrial fib 04/24/22 05/17/22 History aspirin 81 mg tablet,delayed 81 mg PO DAILY HEART HEALTH 04/24/22 05/17/22 History release carvedilol 12.5 mg tablet 12.5 mg PO BID Hypertension 04/24/22 05/17/22 History duloxetine 60 mg capsule,delayed 60 mg PO DAILY Depression 04/24/22 05/17/22 History release potassium chloride 20 mEq 20 meq PO DAILY Potassium 04/24/22 05/17/22 History tablet,extended release(part/cryst) replacement diazepam 10 mg tablet 10 mg PO QIDP PRN Anxiety? 05/17/22 05/17/22 History New Prescriptions to Start Prescriptions: Height: 1.8 m Weight: 104.921 kg Laboratory Results:: Laboratory Results - last 24 hr 05/21/22 11:14: POC Glucose 198 H 05/21/22 16:57: POC Glucose 173 H 05/21/22 21:05: Vancomycin Trough 17.6 H 05/21/22 22:01: POC Glucose 149 H 05/22/22 05:11: POC Glucose 92 05/22/22 06:37: WBC 1.4 L*, RBC 2.25 L, Hgb 7.0 L, Hct 20.6 L*, MCV 91.3, MCH 31.2, MCHC 34.1, RDW 21.7 H, Plt Count 28 L*, MPV 10.7 H, Neut % (Auto) 45.6, Lymph % (Auto) 41.6, [place] % (Auto) 5.2, Eos % (Auto) 7.4, Baso % (Auto) 0.3, Neut # (Auto) 0.6 L*, Lymph # (Auto) 0.6 L, [place] # (Auto) 0.1, Eos # (Auto) 0.1, Baso # (Auto) 0.0 05/22/22 06:37: Sodium 138, Potassium 4.0, Chloride 111 H, Carbon Dioxide 23, Anion Gap 8.0, BUN 20, Creatinine 1.40 H, Estimated Creat Clear 67, Estimated GFR 49 L, Est GFR ( Amer) 60, Glucose 76, Calcium 8.4, Total Bilirubin 0.6, AST 15 L, ALT 11 L, Alkaline Phosphatase 122, Total Protein 5.4 L, Albumin 3.0 L D, Globulin 2.4, Albumin/Globulin Ratio 1.3 Medical History: Medical History (Updated 05/17/22 @ 09:02 by Meryl Plata DPM) Atrial fibrillation CAD (coronary artery disease) Congestive heart failure Crushing injury of left ankle Diabetes History of heart attack Hypertension PAD (peripheral artery disease) Assessment and Plan Assessment and plan all Dx Assessment and Plan for all problems:: BASED ON PATIENT FACTORS AND VANCOMYCIN TROUGH LEVEL OF 17.6, RECOMMEND CONTINUING CURRENT DOSE OF VANCOMYCIN AT 1500MG IV EVERY 18 HOURS. PHARMACY WILL CONTINUE TO MONITOR. -CINTHYA VILLELA PHARMD
--- NOTE | 2022-05-22 11:43 | PC.NURSE ---
0827-dr perez made aware of hct and plt count
[2022-05-22 12:58] LABS: POC Glucose,Bedside 187 (70-110)
--- NOTE | 2022-05-22 14:23 | EXP.PN ---
Subjective *Date: 05/22/22 *Time: 14:23 Interval history: No acute events overnight. Patient reports some pain in his left big toe and it has a scant clear drainage. Otherwise patient feels fine. Exam Data for Last 24 hours Vital signs and Labs for Last 24 Hours: Temp Pulse Resp BP Pulse Ox 97.6 F 96 H 17 156/74 H 98 05/22/22 07:17 05/22/22 07:17 05/22/22 07:17 05/22/22 07:17 05/22/22 07:17 Laboratory Results - last 24 hr 05/21/22 16:57: POC Glucose 173 H 05/21/22 21:05: Vancomycin Trough 17.6 H 05/21/22 22:01: POC Glucose 149 H 05/22/22 05:11: POC Glucose 92 05/22/22 06:37: WBC 1.4 L*, RBC 2.25 L, Hgb 7.0 L, Hct 20.6 L*, MCV 91.3, MCH 31.2, MCHC 34.1, RDW 21.7 H, Plt Count 28 L*, MPV 10.7 H, Neut % (Auto) 45.6, Lymph % (Auto) 41.6, [place] % (Auto) 5.2, Eos % (Auto) 7.4, Baso % (Auto) 0.3, Neut # (Auto) 0.6 L*, Lymph # (Auto) 0.6 L, [place] # (Auto) 0.1, Eos # (Auto) 0.1, Baso # (Auto) 0.0 05/22/22 06:37: Sodium 138, Potassium 4.0, Chloride 111 H, Carbon Dioxide 23, Anion Gap 8.0, BUN 20, Creatinine 1.40 H, Estimated Creat Clear 67, Estimated GFR 49 L, Est GFR ( Amer) 60, Glucose 76, Calcium 8.4, Total Bilirubin 0.6, AST 15 L, ALT 11 L, Alkaline Phosphatase 122, Total Protein 5.4 L, Albumin 3.0 L D, Globulin 2.4, Albumin/Globulin Ratio 1.3 05/22/22 12:45: POC Glucose 187 H I & O for Last 24 hours: Intake & Output 12/22/22 12/23/22 12/24/22 12/25/22 23:59 23:59 23:59 23:59 Intake Total 1530 / 1530 1200 / 1200 1580 / 1580 840 / 840 Output Total 2250 / 2450 1825 / 1825 1430 / 1430 850 / 850 Balance -720 / -920 -625 / -625 150 / 150 -10 / -10 Weight 102 kg 104.355 kg 104.78 kg 104.921 kg Microbiology Reports for the Last 24 Hours: Microbiology 05/16/22 15:50 Blood Blood Culture - Final NO GROWTH AFTER 5 DAYS 05/16/22 15:50 Blood Blood Culture - Final NO GROWTH AFTER 5 DAYS Constitutional Constitutional: no acute distress, obese, chronically ill appearing and cooperative Comments: Easily sits up in bed for lung exam. *Routine HEENT Exam Head: Present normocephalic and atraumatic Eye: Present EOMI and PERRL ENT: Present mucous membranes moist; Absent dentition normal *Routine Neck Exam Neck: Present supple and full ROM; Absent JVD *Routine Respiratory Exam Respiratory: Present CTA bilaterally, diminished air movement and able to speak in complete sentences; Absent accessory muscle use, rhonchi, wheezes or crackles *Routine Cardiovascular Exam Cardiovascular: Present RRR and murmur; Absent gallop *Routine Abdominal Exam Abdominal: Present soft; Absent tenderness, distended or rebound *Routine Extremities Exam Extremities: Absent cyanosis, edema or tenderness Comments: s/p Right BKA, there is a small scab in a crease on right stump, left big toe erythema with streaks extending proximally is stable. There is a new onset clear, very minimal drainage from left big toe. *Routine Skin Exam Skin: Present intact, cyanosis and erythema (Reddish-purple erythema on left big toe, extending proximally) *Routine Neurological Exam Neurological: Present alert, oriented X3, CN II-XII intact, moving all extremities and normal tone; Absent motor deficit Routine Psychiatric Exam Psychiatric: Present normal affect, normal thought process, cooperative, good insight and good judgment; Absent suicidal ideation, homicidal ideation, auditory hallucinations, visual hallucinations, depressed or anxious Assessment and Plan *Assessment and plan (1) Peripheral arterial disease: Status: Acute Category: Medical Code(s): I73.9 - Peripheral vascular disease, unspecified (2) Diabetic peripheral neuropathy: Status: Chronic Category: Medical Code(s): E11.42 - Type 2 diabetes mellitus with diabetic polyneuropathy (3) History of MRSA infection: Status: Acute Category: Medical Code(s): Z86.14 - Personal history of Me
[2022-05-22 14:42] VITALS: BP 139/71; PULSE 94; RESP 17; TEMP 36.5; O2SAT 98
--- NOTE | 2022-05-22 17:28 | PC.NURSE ---
PT IS AOX4, HAS NOT REQUIRED O2 SUPPORT. HAS DENIED PAIN THIS SHIFT. TOLERATING DIET WELL. NO ACUTE CHANGES NOTED
[2022-05-22 20:00] VITALS: BP 143/73; PULSE 94; PULSE 96; RESP 18; TEMP 36.7; O2SAT 98
[2022-05-22 20:37] LABS: POC Glucose,Bedside 238 (70-110)
[2022-05-22 22:22] LABS: POC Glucose,Bedside 168 (70-110)
[2022-05-23 04:00] VITALS: BP 104/62; PULSE 104; RESP 17; TEMP 36.6; O2SAT 99; BMI 32.5
--- NOTE | 2022-05-23 04:58 | PC.NURSE ---
Beatriz with [facility] called for update, no bed available at this time.
[2022-05-23 05:23] LABS: POC Glucose,Bedside 132 (70-110)
--- NOTE | 2022-05-23 05:57 | PC.NURSE ---
No acute changes. Pt A/Ox4. Pt slept majority of shift. Pt has not voiced any c/o to staff. Dsg applied to R BKA. Call light within reach.
[2022-05-23 06:59] LABS: Basophils % 0.8 % (0.1-2.0); Eosinophils # 0.1 K/mm3 (0.0-0.4); Eosinophils % 5.9 % (0.1-12.0); Hematocrit 22.1 % (42.0-52.0); Hemoglobin 7.7 g/dL (14.1-18.0); Lymphocytes # 0.6 K/mm3 (0.7-4.5); Mean Corpuscular HGB Conc 34.6 g/dL (31.8-35.4); Mean Corpuscular Volume 92.3 fl (80-94); Mean Platelet Volume 13.4 fl (7.4-10.4); Monocytes # 0.1 K/mm3 (0.1-1.0); Monocytes % 5.4 % (1.7-9.3); Neutrophils # 0.7 K/mm3 (1.8-7.8); Neutrophils % 46.9 % (37.0-80.0); Red Cell Distribution Width 21.8 % (11.5-17.5); White Blood Count 1.4 K/mm3 (4.8-10.8)
[2022-05-23 07:01] LABS: Platelet Count 31 K/mm3 (142-424)
[2022-05-23 07:02] LABS: Chloride 112 mmol/L (98-107)
[2022-05-23 07:03] LABS: Potassium 4.5 mmoL/L (3.5-5.1); Sodium 139 mmol/L (136-145)
[2022-05-23 07:05] LABS: Alanine Aminotransferase 17 U/L (12-78); Alkaline Phosphatase 142 U/L (38-126); Anion Gap 11.5 mEq/L (5-15); Aspartate Amino Transferase 20 U/L (17-59); Bilirubin,Total 0.6 mg/dl (0.2-1.3); Blood Urea Nitrogen 21 mg/dl (9-20); Carbon Dioxide 20 mmol/L (22.0-30.0); Creatinine Clearance Estimated 85 mL/min (50-200); Estimated Glomerular Filt Rate 65 ml/min (>60); GFR (African American) 79 ML/MIN (>60)
[2022-05-23 07:06] LABS: Albumin Level 3.4 g/dl (3.5-5.0); Albumin/Globulin Ratio 1.2 (1.1-1.8); Calcium 8.7 mg/dl (8.4-10.2); Globulin 2.8 g/dL (1.3-3.2); Glucose 110 mg/dl (74-100); Total Protein,Serum 6.2 g/dl (6.3-8.2)
[2022-05-23 07:51] VITALS: BP 139/69; PULSE 99; RESP 16; TEMP 36.6; O2SAT 99
--- NOTE | 2022-05-23 12:41 | SW/DCPLANNER ---
Addendum entered by Manuela Ayoub 05/24/22 15:24: Patient will discharge today with IV Dapto once daily: [facility] will deliver this to home today. Patient will return to [facility] outpatient infusion tomorrow for a blood transfusion. Due to patient not being able to receive home health: I spoke with National Secretary (Danay) that has approved for our outpatient nurses to teach how to administer IV medication while receiving blood transfusion. I have updated patient and his regarding situation. Addendum entered by Manuela Ayoub 05/24/22 12:31: [facility] is not able to accept this patient due to insurance. Moraima ramirez/ [facility] stated that medication is covered at 100% and their nurse can provide teachings to patient's . Patient will discharge home today once is able to be taught how to administer medications. I also offered other discharge options of returning to our outpatient department for IV antibiotics or placement: both were denied by patient/. Addendum entered by Manuela Ayoub 05/24/22 10:46: Moraima Joshua stated that patient home IV medication are covered 100%. Patient information/order has also been faxed to [facility]. I will follow up with [facility] once patient information is reviewed. Original Note: Dr Claudio and CM had discussed the option of patient discharging home with home health services for IV antibiotics. At this time there is not a home health agency in [facility] that can service this patient. I did speak with Moraima at [facility] regarding teachings and home IV antibiotics. [facility] is unable to complete referral due to holiday and not being able to run insurance. All patient information and Moraima stated that she will follow up with me in AM regarding referral.
[2022-05-23 12:47] LABS: POC Glucose,Bedside 147 (70-110)
--- NOTE | 2022-05-23 15:02 | PC.NURSE ---
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
[2022-05-23 15:56] VITALS: BP 153/78; PULSE 87; RESP 16; TEMP 36.6; O2SAT 97
[2022-05-23 17:48] LABS: POC Glucose,Bedside 211 (70-110)
--- NOTE | 2022-05-23 17:54 | PC.NURSE ---
cecilio called from [facility]. still no bed. will call back up worker to morning
--- NOTE | 2022-05-23 19:50 | DIET.NUTRFU ---
Pt PO itake good with 75-100% consumed at the majority of meals. POC glucose slightly elevated at 132, 147, 211. Some pain in left big toe per MD progress note. Will continue to monitor.
--- NOTE | 2022-05-23 19:55 | EXP.PN ---
Subjective *Date: 05/23/22 *Time: 19:55 Interval history: No acute events overnight. Patient is in a good mood and believes his left toe cellulitis is getting better. Exam Data for Last 24 hours Vital signs and Labs for Last 24 Hours: Temp Pulse Resp BP Pulse Ox 97.8 F 87 16 153/78 H 97 05/23/22 15:56 05/23/22 15:56 05/23/22 15:56 05/23/22 15:56 05/23/22 15:56 Laboratory Results - last 24 hr 05/22/22 16:06: POC Glucose 238 H 05/22/22 20:23: POC Glucose 168 H 05/23/22 05:13: POC Glucose 132 H 05/23/22 06:46: WBC 1.4 L*, RBC 2.40 L, Hgb 7.7 L, Hct 22.1 L, MCV 92.3, MCH 32.0 H, MCHC 34.6, RDW 21.8 H, Plt Count 31 L*, MPV 13.4 H, Neut % (Auto) 46.9, Lymph % (Auto) 41.0, Yates % (Auto) 5.4, Eos % (Auto) 5.9, Baso % (Auto) 0.8, Neut # (Auto) 0.7 L*, Lymph # (Auto) 0.6 L, Yates # (Auto) 0.1, Eos # (Auto) 0.1, Baso # (Auto) 0.0 05/23/22 06:46: Sodium 139, Potassium 4.5, Chloride 112 H, Carbon Dioxide 20 L, Anion Gap 11.5, BUN 21 H, Creatinine 1.10 D, Estimated Creat Clear 85, Estimated GFR 65, Est GFR ( Amer) 79 D, Glucose 110 H, Calcium 8.7, Total Bilirubin 0.6, AST 20 D, ALT 17 D, Alkaline Phosphatase 142 H, Total Protein 6.2 L, Albumin 3.4 L D, Globulin 2.8, Albumin/Globulin Ratio 1.2 05/23/22 12:36: POC Glucose 147 H 05/23/22 17:34: POC Glucose 211 H I & O for Last 24 hours: Intake & Output 05/20/22 05/21/22 05/22/22 05/23/22 23:59 23:59 23:59 23:59 Intake Total 1200 / 1200 1580 / 1580 1300 / 1300 1820 / 1820 Output Total 1825 / 1825 1430 / 1430 2180 / 2480 2975 / 2975 Balance -625 / -625 150 / 150 -880 / -1180 -1155 / -1155 Weight 104.355 kg 104.78 kg 104.921 kg 105.318 kg Constitutional Constitutional: no acute distress, obese, chronically ill appearing and cooperative Comments: Easily sits up in bed for lung exam. *Routine HEENT Exam Head: Present normocephalic and atraumatic Eye: Present EOMI and PERRL ENT: Present mucous membranes moist; Absent dentition normal *Routine Neck Exam Neck: Present supple and full ROM; Absent JVD *Routine Respiratory Exam Respiratory: Present CTA bilaterally, diminished air movement and able to speak in complete sentences; Absent accessory muscle use, rhonchi, wheezes or crackles *Routine Cardiovascular Exam Cardiovascular: Present RRR and murmur; Absent gallop *Routine Abdominal Exam Abdominal: Present soft; Absent tenderness, distended or rebound *Routine Extremities Exam Extremities: Absent cyanosis, edema or tenderness Comments: s/p Right BKA, there is a small scab in a crease on right stump, left big toe erythema with streaks extending proximally is stable. There is a new onset clear, very minimal drainage from left big toe. *Routine Skin Exam Skin: Present intact, cyanosis and erythema (Reddish-purple erythema on left big toe, extending proximally is more faint and overall improving) *Routine Neurological Exam Neurological: Present alert, oriented X3, CN II-XII intact, moving all extremities and normal tone; Absent motor deficit Routine Psychiatric Exam Psychiatric: Present normal affect, normal thought process, cooperative, good insight and good judgment; Absent suicidal ideation, homicidal ideation, auditory hallucinations, visual hallucinations, depressed or anxious Assessment and Plan *Assessment and plan (1) Peripheral arterial disease: Status: Acute Category: Medical Code(s): I73.9 - Peripheral vascular disease, unspecified (2) Diabetic peripheral neuropathy: Status: Chronic Category: Medical Code(s): E11.42 - Type 2 diabetes mellitus with diabetic polyneuropathy (3) History of MRSA infection: Status: Acute Category: Medical Code(s): Z86.14 - Personal history of Methicillin resistant Staphylococcus aureus infection (4) Cellulitis of left foot: Status: Acute Category: Medical Code(s): L03.116 - Cellulitis of left lower limb (5) Right BKA infection: Status: Acute
[2022-05-23 20:00] VITALS: BP 144/70; PULSE 96; RESP 18; TEMP 36.5; O2SAT 98
[2022-05-23 22:08] LABS: POC Glucose,Bedside 171 (70-110)
[2022-05-24 04:00] VITALS: BMI 32.5
--- NOTE | 2022-05-24 06:24 | PC.NURSE ---
Pt has c/o heartburn 1x at beginning of shift. Hospitalist notified. Orders for 2 500mg tums r/v/and carried out. Pt states favorable results. No other c/o voiced to staff. Call light within reach.
[2022-05-24 07:27] LABS: Basophils % 0.5 % (0.1-2.0); Eosinophils # 0.1 K/mm3 (0.0-0.4); Eosinophils % 6.2 % (0.1-12.0); Hematocrit 21.2 % (42.0-52.0); Hemoglobin 7.1 g/dL (14.1-18.0); Lymphocytes # 0.5 K/mm3 (0.7-4.5); Lymphocytes % 44.2 % (10-50); Mean Corpuscular HGB Conc 33.6 g/dL (31.8-35.4); Mean Corpuscular Hemoglobin 30.9 pg (27.0-31.2); Mean Platelet Volume 11.7 fl (7.4-10.4); Monocytes # 0.1 K/mm3 (0.1-1.0); Monocytes % 7.4 % (1.7-9.3); Neutrophils # 0.5 K/mm3 (1.8-7.8); Neutrophils % 41.7 % (37.0-80.0); White Blood Count 1.2 K/mm3 (4.8-10.8)
[2022-05-24 07:31] LABS: Chloride 113 mmol/L (98-107); Sodium 140 mmol/L (136-145)
[2022-05-24 07:32] LABS: Potassium 4.4 mmoL/L (3.5-5.1)
[2022-05-24 07:34] LABS: Alanine Aminotransferase 15 U/L (12-78); Albumin Level 3.1 g/dl (3.5-5.0); Albumin/Globulin Ratio 1.1 (1.1-1.8); Alkaline Phosphatase 133 U/L (38-126); Anion Gap 11.4 mEq/L (5-15); Aspartate Amino Transferase 20 U/L (17-59); Bilirubin,Total 0.6 mg/dl (0.2-1.3); Blood Urea Nitrogen 22 mg/dl (9-20); Carbon Dioxide 20 mmol/L (22.0-30.0); Creatinine Clearance Estimated 85 mL/min (50-200); Estimated Glomerular Filt Rate 65 ml/min (>60); GFR (African American) 79 ML/MIN (>60); Globulin 2.7 g/dL (1.3-3.2); Glucose 96 mg/dl (74-100); Total Protein,Serum 5.8 g/dl (6.3-8.2)
[2022-05-24 07:35] LABS: Calcium 8.9 mg/dl (8.4-10.2)
[2022-05-24 07:45] LABS: Platelet Count 23 K/mm3 (142-424)
[2022-05-24 08:00] VITALS: BP 115/53; PULSE 91; RESP 18; TEMP 36.6; O2SAT 98
--- NOTE | 2022-05-24 08:07 | PC.NURSE ---
0742- critical Platelet reported by Valery Edmond in lab. Verified name, and room number. 0756- Reported critical value to MD Hoffman
[2022-05-24 08:44] LABS: POC Glucose,Bedside 99 (70-110)
--- NOTE | 2022-05-24 10:22 | XR_ITS ---
FINAL REPORT CLINICAL HISTORY: PICC PLACEMENT COMPARISON: 03/13/2021 FINDINGS: SINGLE-VIEW CHEST There is cardiomegaly with mild pulmonary vascular congestion. These patient is status post median sternotomy. There is a new right PICC line tip which terminates in the region of the upper SVC. There are mild right base opacities, favor atelectasis over pneumonia. There is no pneumothorax. IMPRESSION: Interval PICC line placement. Right base opacities, favor atelectasis over pneumonia. Reviewed, Interpreted and Dictated by Rolando Anderson III, MD Transcribed by Venecia Lawton Authenticated and . [facility]
[2022-05-24 11:13] LABS: POC Glucose,Bedside 206 (70-110)
[2022-05-24 11:15] VITALS: PULSE 80; RESP 19
--- NOTE | 2022-05-24 11:24 | EXP.DC.SUM ---
General Admission date:: 05/16/22 Discharge date: 05/24/22 HPI HPI HPI: Mr. Alvarado is a 77-year-old male with a past medical history that is positive for recent Right BKA, DM, CHF, CAD, Atrial Fibrillation on chronic anticoagulation, PAD, Anemia and Chronic Thrombocytopenia. He presents to [facility] through the ER with a 2 week period of left toe redness and a 2-3 day period of streaking redness up the leg associated with pain in the foot and leg. The patient was seen on the medical surgical unit following his admission. He denies injury to the area, he has scratches on the anterior lower left leg that he states came from puppies that have been present for over 2 weeks. He reports that due to the pain and redness that he came into the ER for evaluation. In the ER, the patient had a CRP that was elevated at 39.3. Xray of the foot showed no bony abnormalities. CBC showed an anemia with hgb at 7.7 and thrombocytopenia with platelets low at 31. On CMP creatinine was elevated at 1.60. The patient reports a history of MRSA skin infection in the past. The patient will be admitted with initial impression: LLE cellulitis. He will be placed on antibiotics to cover for Strep and MRSA. He reports he saw Hematology at [facility] with [place] and Vascular with [facility] in [place], records will be requested from these visits. Podiatry will be consulted to evaluate the patient and JOHN will be ordered. The plan of care was discussed with the patient and his in length and detail at bedside on admission. Both verbalized understanding and agreement with the plan of care. Podiatry: HPI reviewed as above. Patient/ report history of right BKA February 2021. He is under the active care of Dr. Lund at [facility]. He had an MRI 05/04/2022 and has a follow-up 05/18/2022 to review with the vascular surgeon. Was admitted last night for left foot cellulitis. Denies any open wound or trauma to the left foot. Reports pain to the left big toe and medial foot. Hospital Course Hospital Course Hospital Course: 77-year-old male with history of peripheral artery disease, admitted for left foot cellulitis and right BKA stump osteomyelitis. Treated with IV antibiotics during admission. Able to have PICC placed to complete course. Given that he is clinically stable, will discharge home to continue IV antibiotics with close follow-up with his orthopedic surgeon to further evaluate for revision of right BKA and consideration of left great toe infection. Problems addressed as follows: //Left foot cellulitis //Right BKA stump osteomyelitis -Presented with erythema of the left foot and toe consistent with cellulitis. Initiated on IV antibiotics, showed gradual improvement during admission. Also noted to have osteomyelitis in the distal portion of his right BKA stump. Poor blood flow in left lower extremity with JOHN of 0.31. Strong concern that left foot will have a hard time healing if need surgery. Transitioned to daptomycin once a day and Levaquin orally to complete 6 weeks of antibiotics. PICC placed on day of discharge. Defer further management of infection to his surgeon Dr. Lund who has an appointment with the patient tomorrow. Stable for discharge home on empiric antibiotics. //anemia -Chronic, received transfusion x2 during admission. Hemoglobin 7.1 on day of discharge, given the fact that he has antibodies and is a difficult crossmatch, will crossmatch for 1 unit of blood and have him come back as an outpatient in the next 3 days to receive transfusion. Patient provided with transfusion order at discharge. //thrombocytopenia -Chronic and longstanding. Received 1 platelet transfusion during admission on 05/18. No signs of active bleeding. Would benefit from heme consult as an outpatient. //KERA - Cr 1.6 on admission, gradually improved to baseline of 1.1. //afib - eliquis d/c'd due to thrombocytopenia and anemia. Risk
--- NOTE | 2022-05-24 11:50 | PC.NURSE ---
Per PICC line nurse, PICC line is good to use
--- NOTE | 2022-05-24 15:56 | PC.NURSE ---
This RN explained to pt and that pt needed to be at outpt registration at 0900 tomorrow for blood transfusion. They were also told to bring all IV medication supplies with them, so they can be educated on how to give IV transfusions at home. This RN also explained to pt and that pt will need to come to outpatient lab q7days for labs. Pt and both verbalized understanding.
--- NOTE | 2022-05-26 14:44 | CARE MANAGER ---
Called and spoke with Mr. Alvarado regarding post discharge status. He stated that he is doing well and is aware of his f/u appt. No complaints or concerns at time of call.
== END 2022-05-24 15:55 | disposition home or self-care (01) ==
LOC: ER 15:40 → 2ND 17:00
PROVIDERS: Nurse Practitioner Family; Admitting Provider Internal Medicine Adolescent Medicine; Emergency Provider Emergency Medicine; PCP Family Medicine; Visit Provider Emergency Medicine
DX: E11.42 Type 2 diabetes mellitus with diabetic polyneuropathy (principal); M86.9 Osteomyelitis, unspecified; Z79.4 Long term (current) use of insulin; T87.43 Infection of amputation stump, right lower extremity; Z86.14 Personal history of Methicillin resistant Staphylococcus aureus infection; D69.3 Immune thrombocytopenic purpura; D64.9 Anemia, unspecified; I48.91 Unspecified atrial fibrillation; I25.10 Atherosclerotic heart disease of native coronary artery without angina pectoris; L03.116 Cellulitis of left lower limb; N17.9 Acute kidney failure, unspecified; Z95.1 Presence of aortocoronary bypass graft; Z79.01 Long term (current) use of anticoagulants; I50.9 Heart failure, unspecified; I70.213 Atherosclerosis of native arteries of extremities with intermittent claudication, bilateral legs; E11.69 Type 2 diabetes mellitus with other specified complication; M86.18 Other acute osteomyelitis, other site; B96.5 Pseudomonas (aeruginosa) (mallei) (pseudomallei) as the cause of diseases classified elsewhere; B95.62 Methicillin resistant Staphylococcus aureus infection as the cause of diseases classified elsewhere
CPT/HCPCS: G0378; 36410; 36415; 36569; 71045; 73630; 73700; 80048; 80053; 80202; 82607; 82962; 83540; 83550; 83605; 83735; 83880; 85014; 85018; 85025; 85651; 86140; 86850; 86870; 87040; 87070; 87077; 87186; 87205; 99285; C1751; C9803; J0878; J1335; J1956; P9016; P9034; U0003; U0005

== ENCOUNTER 2022-05-25 09:11 | Outpatient (CLI) | payer MEDICARE, MEDICAID, SELFPAY ==
[2022-05-25] VITALS (11 sets, daily range): BP systolic 104–130; BP diastolic 46–71; PULSE 83–91; RESP 16–18; TEMP 35.7–36.5; O2SAT 100
--- NOTE | 2022-05-25 10:06 | PC.NURSE ---
1003-BLOOD TRANSFUSION STARTED AT THIS TIME. TRANSFUSING AT 100 ML/HR.
--- NOTE | 2022-05-25 10:41 | PC.NURSE ---
1033-INCREASED RATE TO 150 ML/HR AT THIS TIME.
--- NOTE | 2022-05-25 11:47 | PC.NURSE ---
1103-INCREASED RATE TO 200 ML/HR AT THIS TIME.
== END 2022-05-25 13:25 | disposition home or self-care (01) ==
LOC: INF 09:13
PROVIDERS: PCP Family Medicine; Visit Provider Internal Medicine Adolescent Medicine
DX: D64.9 Anemia, unspecified (principal); M86.9 Osteomyelitis, unspecified
CPT/HCPCS: 36430; P9016